=== PATIENT | female | born 1945 | race Caucasian/White ===

== ENCOUNTER → 2018-04-22 | Outpatient (CLI) | payer MEDICARE, OTHER ==
--- NOTE | 2018-05-05 18:33 | HM ---
HOLTER MONITOR REPORT HOLTER MONITOR: Referred by Dr. Leland Lam for a Holter monitor. Holter monitor shows sinus mechanism, heart rate ranging from 50 to 104 beats per minute. Average beats per minute. Occasional PVCs and ventricular couplets. No sustained or nonsustained arrhythmias. No bradyarrhythmias. MMODL / IJN: [id number] /
== END | disposition home or self-care (01) ==
LOC: RADECHMAIN 11:42
PROVIDERS: ATTEND Internal Medicine
DX: I49.3 Ventricular premature depolarization (principal); I48.0 Paroxysmal atrial fibrillation
CPT/HCPCS: 93225; 93226

== ENCOUNTER → 2018-04-29 | Outpatient (CLI) | payer MEDICARE, OTHER ==
--- NOTE | 2018-04-29 10:12 | ECHOF ---
Referral Reason:I48.0 MEASUREMENTS -------- HEIGHT: 170.2 cm WEIGHT: 124.7 kg BP: RVIDd: 3.2 cm (< 3.3) IVSd: 1.3 cm (0.6 - 1.1) LVIDd: 4.1 cm (3.9 - 5.3) LVPWd: 1.1 cm (0.6 - 1.1) IVSs: 1.9 cm LVIDs: 1.5 cm LVPWs: 1.9 cm Ao Diam: 3.0 cm (2.0 - 3.7) AV Cusp: 2.0 cm (1.5 - 2.6) LA Diam: 4.3 cm (2.7 - 3.8) EPSS: 0.3 cm MV E Fabiano: 0.95 m/s MV DecT: 221 ms MV A Fabiano: 1.16 m/s MV E/A Ratio: 0.81 AR PHT: 454 ms MV EF SLOPE: 50.50 mm/s (70 - 150) MV EXCURSION: 1.41 cm (> 18.000) FINDINGS -------- Sinus rhythm. This was a technically good study. The left ventricular size is normal. There is mild concentric left ventricular hypertrophy. Overa ll left ventricular systolic function is normal with, an EF between 55 - 60 %. Cannot exclude inferob [place] focal hypokinesia. The right ventricle is normal in size. The left atrium is mildly dilated. The right atrium is normal in size. Possible PFO Aortic valve is trileaflet and is mildly thickened. There is mild aortic regurgitation. The mitral valve leaflets are mildly thickened. There is trace mitral regurgitation. Trace tricuspid regurgitation present. The right ventricular systolic pressure, as measured by Dopp ler, is {RVSP}. Pulmonic valve appears structurally normal. The aortic root size is normal. Normal inferior vena cava with normal inspiratory collapse consistent with estimated right atrial pre ssure of 5 mmHg. CONCLUSIONS -------- 1. Sinus rhythm. 2. This was a technically good study. 3. The left ventricular size is normal. 4. There is mild concentric left ventricular hypertrophy. 5. Overall left ventricular systolic function is normal with, an EF between 55 - 60 %. 6. The right ventricle is normal in size. 7. The left atrium is mildly dilated. 8. The right atrium is normal in size. 9. Possible PFO 10. Aortic valve is trileaflet and is mildly thickened. 11. There is mild aortic regurgitation. 12. The mitral valve leaflets are mildly thickened. 13. There is trace mitral regurgitation. 14. Trace tricuspid regurgitation present. 15. The right ventricular systolic pressure, as measured by Doppler, is {RVSP}. 16. Pulmonic valve appears structurally normal. 17. The aortic root size is normal. 18. Normal inferior vena cava with normal inspiratory collapse consistent with estimated right atrial pressure of 5 mmHg. [employer]: Erica Thapa RDCS
== END | disposition home or self-care (01) ==
LOC: RADECHMAIN 08:18
PROVIDERS: ATTEND Internal Medicine
DX: I35.1 Nonrheumatic aortic (valve) insufficiency (principal); I05.9 Rheumatic mitral valve disease, unspecified; I48.0 Paroxysmal atrial fibrillation
CPT/HCPCS: 93306

== ENCOUNTER 2019-08-14 11:58 | Inpatient (IN) | payer MEDICARE ==
--- NOTE | 2019-08-14 12:32 | ED ---
General Adult HPI - General Chief complaint: Arrhythmia/Palpitations Stated complaint: AFib Time Seen by Provider: 08/14/19 12:11 Source: patient, RN notes reviewed Mode of arrival: wheelchair Limitations: physical limitation - History of Present Illness Initial comments: Patient is a pleasant 74 rolled female presenting to the emergency department after being seen by her primary care physician. Patient states she was there for routine checkup. Patient has no complaints. Patient states she was identified to be in atrial fibrillation and was advised to come to emergency department. Patient denies any palpitations. No chest pain. No dyspnea. No history of atrial fibrillation. - Related Data Allergies Allergy/AdvReac Type Severity Reaction Status Date / Time No Known Allergies Allergy Verified 08/14/19 13:23 Review of Systems ROS Statement: Those systems with pertinent positive or pertinent negative responses have been documented in the HPI. ROS Other: All systems not noted in ROS Statement are negative. Constitutional: Denies: fever Eyes: Denies: eye pain ENT: Denies: ear pain Respiratory: Denies: dyspnea Cardiovascular: Denies: chest pain Endocrine: Denies: fatigue Gastrointestinal: Denies: abdominal pain Genitourinary: Denies: dysuria Musculoskeletal: Denies: back pain Skin: Denies: rash Neurological: Denies: weakness Past Medical History Past Medical History: Hyperlipidemia History of Any Multi-Drug Resistant Organisms: None Reported Past Surgical History: Orthopedic Surgery, Tubal Ligation Past Psychological History: No Psychological Hx Reported Smoking Status: Never smoker Past Alcohol Use History: None Reported Past Drug Use History: None Reported General Exam Limitations: physical limitation General appearance: alert, in no apparent distress Head exam: Present: normocephalic Eye exam: Present: normal appearance Neck exam: Present: normal inspection Respiratory exam: Present: normal lung sounds bilaterally Cardiovascular Exam: Present: tachycardia, irregular rhythm Expanded Peripheral pulses: 2+: Radial (R), Radial (L), Dorsalis Pedis (R), Dorsalis Pedis (L) GI/Abdominal exam: Present: soft. Absent: tenderness Extremities exam: Present: normal inspection. Absent: pedal edema, calf tenderness Neurological exam: Present: alert Psychiatric exam: Present: normal affect, normal mood Skin exam: Present: normal color Course Vital Signs 08/14/19 08/14/19 08/14/19 12:02 12:23 13:07 Temperature 97.5 F L Pulse Rate 124 H 154 H 126 H Respiratory 17 18 18 Rate Blood Pressure 131/84 128/115 O2 Sat by Pulse 96 95 98 Oximetry 08/14/19 13:18 Temperature Pulse Rate 141 H Respiratory 18 Rate Blood Pressure 143/110 O2 Sat by Pulse 95 Oximetry - Reevaluation(s) Reevaluation #1: 08/14/19 13:13 Case was also discussed with Dr. Carrasco who will come evaluate patient. EKG Findings - EKG Comments: EKG Findings:: Atrial flutter appearance with a rate of 140. QRS 82. QT 288. QTC or 39. Left axis. Inferior Q waves. No acute ST change. Medical Decision Making - Medical Decision Making Case was also discussed with sound physician who will admit for hospital call. Patient reevaluated and updated. - Lab Data Result diagrams: 08/14/19 12:19 08/14/19 12:19 Lab Results 08/14/19 08/14/19 08/14/19 Range/Units 12:19 12:19 12:19 WBC 7.8 (3.8-10.6) k/uL RBC 4.59 (3.80-5.40) m/uL Hgb 14.4 (11.4-16.0) gm/dL Hct 41.7 (34.0-46.0) % MCV 90.9 (80.0-100.0) fL MCH 31.5 (25.0-35.0) pg MCHC 34.6 (31.0-37.0) g/dL RDW 14.7 (11.5-15.5) % Plt Count 272 (150-450) k/uL Neutrophils % 77 % Lymphocytes % 14 % Monocytes % 5 % Eosinophils % 2 % Basophils % 1 % Neutrophils # 6.0 (1.3-7.7) k/uL Lymphocytes # 1.1 (1.0-4.8) k/uL Monocytes # 0.4 (0-1.0) k/uL Eosinophils # 0.1 (0-0.7) k/uL Basophils # 0.1 (0-0.2) k/uL PT 9.8 (9.0-12.0) sec INR 0.9 (<1.2) APTT 24.7 (22.0-30.0) sec Sodium 138 (137-145) mmol/L Potassium 3.7 (3.5-5.1) mmol/L Chloride 100 (98-107) mmol/L Carbon Dioxide 26 (22-30) mmol/L Anion Gap 12 mmol/L BUN 15 (7-17) mg/dL Creatinine 0.78 (0.52-1.04) mg/dL Est GFR (CKD-EPI)AfAm 86 (>60 ml/min/1.73 sqM) Est GFR (CKD-EPI)NonAf 74 (>60 ml/min/1.73 sqM) Glucose 110 H (74-99) mg/dL Calcium 9.9 (8.4-10.2) mg/dL Magnesium 1.6 (1.6-2.3) mg/dL Total Bilirubin 0.7 (0.2-1.3) mg/dL AST 35 (14-36) U/L ALT 31 (9-52) U/L Alkaline Phosphatase 42 (38-126) U/L Troponin I (0.000-0.034) ng/mL Total Protein 7.9 (6.3-8.2) g/dL Albumin 4.1 (3.5-5.0) g/dL 08/14/19 Range/Units 12:19 WBC (3.8-10.6) k/uL RBC (3.80-5.40) m/uL Hgb (11.4-16.0) gm/dL Hct (34.0-46.0) % MCV (80.0-100.0) fL MCH (25.0-35.0) pg MCHC (31.0-37.0) g/dL RDW (11.5-15.5) % Plt Count (150-450) k/uL Neutrophils % % Lymphocytes % % Monocytes % % Eosinophils % % Basophils % % Neutrophils # (1.3-7.7) k/uL Lymphocytes # (1.0-4.8) k/uL Monocytes # (0-1.0) k/uL Eosinophils # (0-0.7) k/uL Basophils # (0-0.2) k/uL PT (9.0-12.0) sec INR (<1.2) APTT (22.0-30.0) sec Sodium (137-145) mmol/L Potassium (3.5-5.1) mmol/L Chloride (98-107) mmol/L Carbon Dioxide (22-30) mmol/L Anion Gap mmol/L BUN (7-17) mg/dL Creatinine (0.52-1.04) mg/dL Est GFR (CKD-EPI)AfAm (>60 ml/min/1.73 sqM) Est GFR (CKD-EPI)NonAf (>60 ml/min/1.73 sqM) Glucose (74-99) mg/dL Calcium (8.4-10.2) mg/dL Magnesium (1.6-2.3) mg/dL Total Bilirubin (0.2-1.3) mg/dL AST (14-36) U/L ALT (9-52) U/L Alkaline Phosphatase (38-126) U/L Troponin I <0.012 (0.000-0.034) ng/mL Total Protein (6.3-8.2) g/dL Albumin (3.5-5.0) g/dL - Radiology Data Radiology results: image reviewed Critical Care Time Critical Care Time: Yes Total Critical Care Time: 32 Disposition Clinical Impression: Atrial flutter with rapid ventricular response Disposition: ADMITTED IP TO THIS HOSP Is patient prescribed a controlled substance at d/c from ED?: No Decision Time: 13:13
[2019-08-14 12:58] LABS: Albumin 4.1 g/dL (3.5-5.0); Calcium 9.9 mg/dL (8.4-10.2); Magnesium 1.6 mg/dL (1.6-2.3); Potassium 3.7 mmol/L (3.5-5.1); Total Bilirubin 0.7 mg/dL (0.2-1.3); Total Protein 7.9 g/dL (6.3-8.2)
[2019-08-14 13:02] LABS: INR 0.9 (<1.2); Partial Thromboplastin Time 24.7 sec (22.0-30.0); Prothrombin Time 9.8 sec (9.0-12.0)
[2019-08-14 13:13] LABS: T4, Free (Free Thyroxine) 1.94 ng/dL (0.78-2.19)
[2019-08-14] MEDS ORDERED: ASPIRIN 81 MG PO STA (13:14)
[2019-08-14] MEDS ORDERED: HEPARIN SODIUM,PORCINE 5,000 UNIT/ML 1 ML VIAL IV PRN (13:14)
[2019-08-14] MEDS ORDERED: HEPARIN SODIUM,PORCINE 5,000 UNIT/ML 1 ML VIAL IV ONE (13:14)
[2019-08-14 13:15] LABS: Basophils # (A) 0.1 k/uL (0-0.2); Basophils % (A) 1 %; Eosinophils # (A) 0.1 k/uL (0-0.7); Eosinophils % (A) 2 %; HCT 41.7 % (34.0-46.0); HGB 14.4 gm/dL (11.4-16.0); Lymphocytes # (A) 1.1 k/uL (1.0-4.8); Lymphocytes % (A) 14 %; MCH 31.5 pg (25.0-35.0); MCHC 34.6 g/dL (31.0-37.0); MCV 90.9 fL (80.0-100.0); Mean Platelet Volume 6.4; Monocytes # (A) 0.4 k/uL (0-1.0); Monocytes % (A) 5 %; Neutrophils % (A) 77 %; Platelet Count 272 k/uL (150-450); RBC 4.59 m/uL (3.80-5.40); RDW 14.7 % (11.5-15.5); WBC 7.8 k/uL (3.8-10.6)
[2019-08-14] MEDS ORDERED: HEPARIN SOD,PORK IN 0.45% NACL 25,000 UNIT in 0.45% NACL 1 250ML.BAG IV SCH (13:15)
--- NOTE | 2019-08-14 13:15 | XR ---
EXAMINATION TYPE: XR chest 2V DATE OF EXAM: 08/14/2019 COMPARISON: None INDICATION: Dysrhythmia TECHNIQUE: Frontal and lateral views of the chest are obtained. FINDINGS: The heart size is normal. The pulmonary vasculature is normal. The lungs are clear. Left shoulder prosthesis is evident. This is a humeral head level. Spondylosis within the thoracic spine. IMPRESSION: 1. No acute pulmonary process.
[2019-08-14] MEDS: DILTIAZEM 125 MG in SODIUM CHLORIDE 0.9% 100 ML IV SCH (13:16)
--- NOTE | 2019-08-14 13:20 | P.PN ---
Progress Note - Text Called by Dr. Griffiths regarding patient with A. fib with RVR symptomatic Discussed with Dr. Arredondo Please see full consult to follow TSH Rate control Anticoagulation
[2019-08-14] MEDS ORDERED: VERAPAMIL SR 120 MG TABLET.ER PO SCH (14:05)
--- NOTE | 2019-08-14 14:24 | P.CRDCN ---
<Cary Kelly - Last Filed: 08/14/19 14:23> History of Present Illness History of present illness: This is Cary Kelly PA-C dictating a consult on this patient The patient was interviewed and examined by me as well as by Dr. Carrasco Case discussed with Dr. Carrasco and he agrees with the plan of care IMPRESSION / ASSESSMENT: New-onset atrial fibrillation with RVR, currently on IV Cardizem Hypertension Dyslipidemia Hypothyroidism, recent labs show suppressed TSH PLAN: Start anticoagulation with eliquis 5 mg twice daily, based on patient's age, weight and creatinine Start verapamil 120 mg twice daily for rate control Obtain echocardiogram Obtain TSH Further recommendations to follow based on echocardiogram results Management of abnormal TSH by primary care team HPI Patient is a 74-year-old female with a past medical history significant for hypertension, hypothyroidism, and dyslipidemia who is sent to the emergency department by her primary care doctor, Dr. Bryant. Patient states she was in the office seeing Dr. Bryant following up on labs when she was noted to have an elevated heart rate. The patient was completely asymptomatic at that time. Denies any palpitations, chest pain, chest pressure, neck pain, back pain, shortness of breath, or dizziness. Dr. Bryant obtained an EKG which showed atrial fibrillation with RVR, rate 118 bpm. He shouldn't states she has no history of atrial fibrillation but last January when she went to get cataract surgery she was told "her heart was racing" and physician would not do her surgery. She states she was asymptomatic at that time as well. She didn't follow-up with her PCP who did an EKG which was normal at that time per the patient. Over the last few weeks, patient denies any symptoms of palpitations, chest pain, shortness of breath on exertion, dizziness or syncope. Endorses a good energy level and states that her exercise tolerance is only limited due to her arthritis. Dr. Bryant referred the patient to the emergency department for further evaluation. Upon presentation here, EKG showed rapid atrial tachycardia/atrial fibrillation with RVR, rate 140 bpm. Patient's blood pressure was stable. She was started on IV Cardizem. Patient seen and examined resting in bed in the emergency department. States she feels a little "shaky" because she is nervous about being in the emergency department. Denies any chest pain, palpitations, shortness of breath or dizziness. No history of anemia or bleeding problems. ROS: No fevers, chills or rigors, no cough, phlegm or expectoration, no nausea, vomiting or diarrhea, no hematuria, dysuria, Positive for shoulder pain, hip pain and knee pain no strokes or seizures, no skin lesions. EXAMINATION: Afebrile, pulse 124, respirations 17, blood pressure 131/84, oxygen saturation 96% on room air Patient seen and examined lying in bed, in no acute distress Lungs are clear to auscultation bilaterally Heart is irregularly irregular, tachycardic No elevated JVD No lower extremity edema Abdomen soft and nontender REVIEW OF LABS, ECG & MEDICAL DATA Recent labs from Dr. Bryant's office reviewed, TSH was 0.47, creatinine was 0.8 Hemoglobin is normal Past Medical History Past Medical History: Hyperlipidemia History of Any Multi-Drug Resistant Organisms: None Reported Past Surgical History: Orthopedic Surgery, Tubal Ligation Past Psychological History: No Psychological Hx Reported Smoking Status: Never smoker Past Alcohol Use History: None Reported Past Drug Use History: None Reported Medications and Allergies Home Medications Medication Instructions Recorded Confirmed Type Acetaminophen/Diphenhydramine 1 tab PO HS PRN 08/14/19 08/14/19 History [Tylenol PM 500-25mg] Aspirin EC [Ecotrin Low Dose] 81 mg PO DAILY 08/14/19 08/14/19 History Beta-Carotene [Beta Carotene] 25,000 unit PO DAILY 08/14/19 08/14/19 History Cranberry Fruit Extract [Cranberry] 500 mg PO DAILY 08/14/19 08/14/19 History Desoximetasone [Desoximetasone 1 applic TOPICAL BID 08/14/19 08/14/19 History 0.05%] Glucosamine-Chondr 500-400Mg 2 tab PO DAILY 08/14/19 08/14/19 History Hydrochlorothiazide 50 mg PO QAM 08/14/19 08/14/19 History Hydrocortisone Cream 1 applic TOPICAL BID 08/14/19 08/14/19 History [Hydrocortisone 2.5% Cream] Ibuprofen/Diphenhydramine HCl 1 cap PO HS PRN 08/14/19 08/14/19 History [Advil Pm Liqui-Gels] Levothyroxine Sodium [Synthroid] 137 mcg PO QAM 08/14/19 08/14/19 History Naproxen Sodium [Aleve] 220 - 440 mg PO DAILY PRN 08/14/19 08/14/19 History Oxybutynin Chloride [Ditropan] 5 mg PO QAM 08/14/19 08/14/19 History Psyllium Husk (with Sugar) 1 - 2 tsp PO DAILY 08/14/19 08/14/19 History [Metamucil Powder] Simvastatin 80 mg PO HS 08/14/19 08/14/19 History Ultra Vitamin Vm 33 1 tab PO DAILY 08/14/19 08/14/19 History Allergies Allergy/AdvReac Type Severity Reaction Status Date / Time No Known Allergies Allergy Verified 08/14/19 13:23 Physical Exam Vitals: Vital Signs Temp Pulse Resp BP Pulse Ox 08/14/19 13:18 141 H 18 143/110 95 08/14/19 13:07 126 H 18 128/115 98 08/14/19 12:23 154 H 18 95 08/14/19 12:02 97.5 F L 124 H 17 131/84 96 Intake and Output 08/13/19 08/14/19 08/14/19 22:59 06:59 14:59 Other: Weight 113.398 kg Results 08/14/19 12:19 08/14/19 12:19 Cardiac Enzymes 08/14/19 08/14/19 Range/Units 12:19 12:19 AST 35 (14-36) U/L Troponin I <0.012 (0.000-0.034) ng/mL Coagulation 08/14/19 Range/Units 12:19 PT 9.8 (9.0-12.0) sec APTT 24.7 (22.0-30.0) sec CBC 08/14/19 Range/Units 12:19 WBC 7.8 (3.8-10.6) k/uL RBC 4.59 (3.80-5.40) m/uL Hgb 14.4 (11.4-16.0) gm/dL Hct 41.7 (34.0-46.0) % Plt Count 272 (150-450) k/uL Comprehensive Metabolic Panel 08/14/19 Range/Units 12:19 Sodium 138 (137-145) mmol/L Potassium 3.7 (3.5-5.1) mmol/L Chloride 100 (98-107) mmol/L Carbon Dioxide 26 (22-30) mmol/L BUN 15 (7-17) mg/dL Creatinine 0.78 (0.52-1.04) mg/dL Glucose 110 H (74-99) mg/dL Calcium 9.9 (8.4-10.2) mg/dL AST 35 (14-36) U/L ALT 31 (9-52) U/L Alkaline Phosphatase 42 (38-126) U/L Total Protein 7.9 (6.3-8.2) g/dL Albumin 4.1 (3.5-5.0) g/dL Current Medications Generic Name Dose Route Start Last Admin Trade Name Freq PRN Reason Stop Dose Admin Apixaban 5 mg 08/14/19 14:00 Eliquis PO BID NATE Aspirin 81 mg 08/15/19 09:00 Aspirin PO DAILY NATE Diltiazem HCl 125 mg/ Sodium 125 mls @ 5 mls/hr 08/14/19 12:30 08/14/19 13:16 Chloride IV 5 mg/hr .Q24H NATE 5 mls/hr Administration 5 MG/HR Verapamil HCl 120 mg 08/14/19 14:05 Isoptin Sr PO BID NATE Intake and Output 08/13/19 08/14/19 08/14/19 22:59 06:59 14:59 Other: Weight 113.398 kg Patient Weight 08/15/19 06:59 Weight 113.398 kg 08/14/19 12:19 08/14/19 12:19 <Dima Carrasco - Last Filed: 08/14/19 19:14> History of Present Illness History of present illness: Patient interviewed and examined She is experiencing paroxysms of atrial fibrillation interspersed with sinus rhythm PAF About a year back her cataract surgery was postponed on account of a rapid heartbeat Following that a 12-lead ECG was performed the next day she was in sinus rhythm Hypertension Dyslipidemia 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 Suggest Review of 2-D echo Rate control medications Anticoagulation Reduction in the dose of levothyroxine line possible discharge tomorrow Physical Exam Vitals: Vital Signs Temp Pulse Resp BP Pulse Ox 08/14/19 17:58 98 18 152/82 96 08/14/19 15:27 106 H 18 104/92 95 08/14/19 13:18 141 H 18 143/110 95 08/14/19 13:07 126 H 18 128/115 98 08/14/19 12:23 154 H 18 95 08/14/19 12:02 97.5 F L 124 H 17 131/84 96 Intake and Output 08/14/19 08/14/19 08/14/19 06:59 14:59 22:59 Other: Weight 113.398 kg Results 08/14/19 12:19 08/14/19 12:19 Cardiac Enzymes 08/14/19 08/14/19 Range/Units 12:19 12:19 AST 35 (14-36) U/L Troponin I <0.012 (0.000-0.034) ng/mL Coagulation 08/14/19 Range/Units 12:19 PT 9.8 (9.0-12.0) sec APTT 24.7 (22.0-30.0) sec CBC 08/14/19 Range/Units 12:19 WBC 7.8 (3.8-10.6) k/uL RBC 4.59 (3.80-5.40) m/uL Hgb 14.4 (11.4-16.0) gm/dL Hct 41.7 (34.0-46.0) % Plt Count 272 (150-450) k/uL Comprehensive Metabolic Panel 08/14/19 Range/Units 12:19 Sodium 138 (137-145) mmol/L Potassium 3.7 (3.5-5.1) mmol/L Chloride 100 (98-107) mmol/L Carbon Dioxide 26 (22-30) mmol/L BUN 15 (7-17) mg/dL Creatinine 0.78 (0.52-1.04) mg/dL Glucose 110 H (74-99) mg/dL Calcium 9.9 (8.4-10.2) mg/dL AST 35 (14-36) U/L ALT 31 (9-52) U/L Alkaline Phosphatase 42 (38-126) U/L Total Protein 7.9 (6.3-8.2) g/dL Albumin 4.1 (3.5-5.0) g/dL Current Medications Generic Name Dose Route Start Last Admin Trade Name Freq PRN Reason Stop Dose Admin Acetaminophen 650 mg 08/14/19 18:24 Tylenol Tab PO Q6HR PRN Mild Pain or Fever > 100.5 Hydrocodone Bitart/Acetaminophen 1 each 08/14/19 18:24 [place] 5-325 PO Q4HR PRN Moderate Pain Apixaban 5 mg 08/14/19 14:00 08/14/19 15:26 Eliquis PO 5 mg BID NATE Administration Aspirin 81 mg 08/15/19 09:00 Aspirin PO DAILY [facility] Atorvastatin Calcium 40 mg 08/14/19 21:00 Lipitor PO HS [facility] Hydrochlorothiazide 50 mg 08/15/19 09:00 Hydrodiuril PO QAM [facility] Diltiazem HCl 125 mg/ Sodium 125 mls @ 5 mls/hr 08/14/19 12:30 08/14/19 13:16 Chloride IV 5 mg/hr .Q24H NATE 5 mls/hr Administration 5 MG/HR Levothyroxine Sodium 100 mcg 08/15/19 06:30 Synthroid PO DAILY@0630 [facility] Morphine Sulfate 2 mg 08/14/19 18:24 Morphine Sulfate (Inj) IV Q4HR PRN Severe Pain Naloxone HCl 0.2 mg 08/14/19 18:24 Narcan IV Q2M PRN Opioid Reversal Oxybutynin Chloride 5 mg 08/15/19 09:00 Ditropan PO QAM [facility] Verapamil HCl 120 mg 08/15/19 09:00 Isoptin Sr PO DAILY [facility] Intake and Output 08/14/19 08/14/19 08/14/19 06:59 14:59 22:59 Other: Weight 113.398 kg Patient Weight 08/15/19 06:59 Weight 113.398 kg 08/14/19 12:19 08/14/19 12:19
[2019-08-14] MEDS: APIXABAN 5 MG TAB PO SCH ×2 (15:26→20:39)
[2019-08-14] MEDS ORDERED: MORPHINE SULFATE 2 MG/ML SYRINGE IVP STA (17:53)
[2019-08-14] MEDS ORDERED: MORPHINE SULFATE 2 MG/ML SYRINGE IV PRN (18:24)
[2019-08-14] MEDS ORDERED: ACETAMINOPHEN TAB 325 MG TAB PO PRN (18:24)
[2019-08-14] MEDS ORDERED: NALOXONE 0.4 MG/ML 1 ML VIAL IV PRN (18:24)
--- NOTE | 2019-08-14 18:27 | P.HPIM ---
History of Present Illness H&P Date: 08/14/19 Chief Complaint: A. fib with RVR 74 show female with PMH of osteoarthritis, dyslipidemia presents the ED after being sent from her PCP clinic. Patient states that she was at Dr. Bryant's clinic for routine follow-up when she was noted to have an elevated pulse. EKG was done at that time which showed atrial fibrillation with RVR with a rate of 118. Patient reported no complaints at that time. She denies any chest pain, shortness of breath, dizziness or palpitations. Patient denies any headache, lower extremity edema, nausea or vomiting, fever or chills, cough, changes in urination or bowel habits. No changes in appetite or weight. She denies any numbness/weakness/tingling of the extremities. Patient does report arthritic pain in her bilateral hip and bilateral knees. Pain is 10 out of 10 in severity currently due to the uncomfortable bed in the ED. Patient denies any recent stressors. She does not drink alcohol. She does not smoke cigarettes. She tong s report drinking what seems like one energy drink daily. In the ED, her vital signs were relatively stable except for heart rate as high as 154 and diastolic blood pressures is 115. CBC was unremarkable. Coagulation panel was negative. CMP showed glucose of 110. Troponin was less than 0.012, EKG showing atrial flutter with variable AV block and PVCs, rate of 140. TSH was 0.349 with free T4 within normal limits. Chest x-ray was negative. Patient is admitted for atrial fibrillation with RVR with cardiology consultation. Review of Systems Pertinent positives and negatives as discussed in HPI, a complete review of systems was performed and all other systems are negative. Past Medical History Past Medical History: Hyperlipidemia History of Any Multi-Drug Resistant Organisms: None Reported Past Surgical History: Orthopedic Surgery, Tubal Ligation Past Psychological History: No Psychological Hx Reported Smoking Status: Never smoker Past Alcohol Use History: None Reported Past Drug Use History: None Reported Medications and Allergies Home Medications Medication Instructions Recorded Confirmed Type Acetaminophen/Diphenhydramine 1 tab PO HS PRN 08/14/19 08/14/19 History [Tylenol PM 500-25mg] Aspirin EC [Ecotrin Low Dose] 81 mg PO DAILY 08/14/19 08/14/19 History Beta-Carotene [Beta Carotene] 25,000 unit PO DAILY 08/14/19 08/14/19 History Cranberry Fruit Extract [Cranberry] 500 mg PO DAILY 08/14/19 08/14/19 History Desoximetasone [Desoximetasone 1 applic TOPICAL BID 08/14/19 08/14/19 History 0.05%] Glucosamine-Chondr 500-400Mg 2 tab PO DAILY 08/14/19 08/14/19 History Hydrochlorothiazide 50 mg PO QAM 08/14/19 08/14/19 History Hydrocortisone Cream 1 applic TOPICAL BID 08/14/19 08/14/19 History [Hydrocortisone 2.5% Cream] Ibuprofen/Diphenhydramine HCl 1 cap PO HS PRN 08/14/19 08/14/19 History [Advil Pm Liqui-Gels] Levothyroxine Sodium [Synthroid] 137 mcg PO QAM 08/14/19 08/14/19 History Naproxen Sodium [Aleve] 220 - 440 mg PO DAILY PRN 08/14/19 08/14/19 History Oxybutynin Chloride [Ditropan] 5 mg PO QAM 08/14/19 08/14/19 History Psyllium Husk (with Sugar) 1 - 2 tsp PO DAILY 08/14/19 08/14/19 History [Metamucil Powder] Simvastatin 80 mg PO HS 08/14/19 08/14/19 History Ultra Vitamin Vm 33 1 tab PO DAILY 08/14/19 08/14/19 History Allergies Allergy/AdvReac Type Severity Reaction Status Date / Time No Known Allergies Allergy Verified 08/14/19 13:23 Physical Exam Vitals: Vital Signs Temp Pulse Resp BP Pulse Ox 08/14/19 15:27 106 H 18 104/92 95 08/14/19 13:18 141 H 18 143/110 95 08/14/19 13:07 126 H 18 128/115 98 08/14/19 12:23 154 H 18 95 08/14/19 12:02 97.5 F L 124 H 17 131/84 96 Intake and Output 08/14/19 08/14/19 08/14/19 06:59 14:59 22:59 Other: Weight 113.398 kg General: [non toxic], [no distress], [appears at stated age] Derm: [warm], [dry] Head: [atraumatic], [normocephalic], [symmetric] Eyes: [EOMI], [no lid lag], [anicteric sclera] Mouth: [no lip lesion], [mucus membranes moist] Cardiovascular: [S1S2 reg], [irregularly irregular], [positive DP pulse bilateral], Lungs: [CTA bilateral], [no rhonchi, no rales] , [no accessory muscle use] Abdominal: [soft], [ nontender to palpation], [no guarding], [no appreciable organomegaly] Ext: [no gross muscle atrophy], [no edema], [no contractures] Neuro: [ CN II-XI grossly intact], [no focal neuro deficits] Psych: [Alert], [oriented], [appropriate affect] Results CBC & Chem 7: 08/14/19 12:19 08/14/19 12:19 Labs: Abnormal Lab Results - Last 24 Hours (Table) 08/14/19 Range/Units 12:19 Glucose 110 H (74-99) mg/dL TSH 0.349 L (0.465-4.680) mIU/L Assessment and Plan Assessment: Assessment and plan Atrial fibrillation with rapid ventricular rate Hypertension Dyslipidemia Subclinical hyperthyroidism Osteoarthritis As seen on EKG. TSH 0.349 with free T4 within normal limits. Troponin was less than 0.012 with EKG showing atrial flutter with variable AV block. Plans: Anticoagulation started with Eliquis and verapamil 120 mg by mouth twice a day for rate control as per cardiology recommendations. Trend troponin/EKG to rule out ACS. Follow echocardiogram. Potassium greater than 4 and magnesium greater than 2. Telemetry monitoring. Follow cardiology recommendations. BP 104/92. Plans: We started hydrochlorothiazide. Monitor vitals, adjust medications as necessary. Plans: Restart simvastatin. TSH 0.349, free T4 within normal limits. Plans: We will decrease the dose of synthroid from 137 to 100 mcg. She will need follow up with PCP for repeat thyroid testing in 4-6 weeks. Plans: Pain management with Tylenol, [place] as needed. DVT prophylaxis: [Eliquis] Discussed with: [Patient] Anticipated discharge: [1-2 days] Anticipated discharge place: [Home] A total of [45] minutes was spent on the care of this complex patient more than 50% of the time was spent in counseling and care coordination. Patient names her Con decision-maker in the case that she can't make decisions for herself. Patient would like to be no code.
--- NOTE | 2019-08-14 18:42 | ECHOF ---
Referral Reason:A flutter with RVR MEASUREMENTS -------- HEIGHT: 170.2 cm WEIGHT: 113.4 kg BP: 143/110 RVIDd: 3.3 cm (< 3.3) IVSd: 1.1 cm (0.6 - 1.1) LVIDd: 4.0 cm (3.9 - 5.3) LVPWd: 1.1 cm (0.6 - 1.1) IVSs: 1.5 cm LVIDs: 2.3 cm LVPWs: 1.3 cm LA Diam: 3.1 cm (2.7 - 3.8) LAESV Index (A-L): 16.28 ml/m Ao Diam: 3.4 cm (2.0 - 3.7) AV Cusp: 2.0 cm (1.5 - 2.6) MV EXCURSION: 14.230 mm (> 18.000) MV EF SLOPE: 192 mm/s (70 - 150) EPSS: 0.7 cm RAP: 5.00 mmHg RVSP: 24.76 mmHg FINDINGS -------- Atrial fibrillation. This was a technically difficult study with suboptimal views. The left ventricular size is normal. There is borderline concentric left ventricular hypertrophy. Left ventricular systolic function is hyperdynamic with an estimated EF of >70%. The right ventricle is mildly enlarged. The left atrial size is normal. The right atrium is normal in size. Interatrial and interventricular septum intact. There is mild aortic valve sclerosis. There is mild aortic regurgitation. Mild mitral annular calcification present. There is trace to mild mitral regurgitation. Mild tricuspid regurgitation present. Right ventricular systolic pressure is normal at < 35 mmHg. The pulmonic valve was not well visualized. The aortic root size is normal. IVC Not well visulized. There is no pericardial effusion. CONCLUSIONS -------- 1. Atrial fibrillation. 2. This was a technically difficult study with suboptimal views. 3. The left ventricular size is normal. 4. There is borderline concentric left ventricular hypertrophy. 5. Left ventricular systolic function is hyperdynamic with an estimated EF of >70%. 6. The right ventricle is mildly enlarged. 7. The left atrial size is normal. 8. The right atrium is normal in size. 9. Interatrial and interventricular septum intact. 10. There is mild aortic valve sclerosis. 11. There is mild aortic regurgitation. 12. Mild mitral annular calcification present. 13. There is trace to mild mitral regurgitation. 14. Mild tricuspid regurgitation present. 15. Right ventricular systolic pressure is normal at < 35 mmHg. 16. The pulmonic valve was not well visualized. 17. The aortic root size is normal. 18. IVC Not well visulized. 19. There is no pericardial effusion. MACHINE TACK PULLER: Lou Orlando RDCS
[2019-08-14] MEDS: ATORVASTATIN 40 MG TAB PO SCH (20:39)
[2019-08-14] MEDS: HYDROcodone/APAP 5-325MG 1 EACH TAB PO PRN (22:56)
[2019-08-15] MEDS ORDERED: LEVOTHYROXINE 100 MCG TAB PO SCH (06:30)
[2019-08-15] MEDS: HYDROcodone/APAP 5-325MG 1 EACH TAB PO PRN ×4 (06:49→21:35)
[2019-08-15 07:24] LABS: Mean Platelet Volume 6.6; Platelet Count 242 k/uL (150-450)
[2019-08-15 07:50] LABS: Cholesterol 138 mg/dL (<200); HDL Cholesterol 46 mg/dL (40-60); LDL Cholesterol,Calculated 72 mg/dL (0-99); Triglycerides 100 mg/dL (<150)
[2019-08-15] MEDS ORDERED: ASPIRIN 325 MG TAB PO SCH (09:00)
[2019-08-15] MEDS ORDERED: LEVOTHYROXINE 137 MCG TAB PO SCH (09:00)
[2019-08-15] MEDS: OXYBUTYNIN CHLORIDE 5 MG TAB PO SCH (09:17)
[2019-08-15] MEDS: ASPIRIN 81 MG PO SCH (09:17)
[2019-08-15] MEDS: APIXABAN 5 MG TAB PO SCH ×2 (09:17→21:51)
[2019-08-15] MEDS: HYDROCHLOROTHIAZIDE 50 MG TAB PO SCH (09:18)
[2019-08-15] MEDS: VERAPAMIL SR 120 MG TABLET.ER PO SCH ×2 (09:52→11:54)
[2019-08-15] MEDS: DILTIAZEM 125 MG in SODIUM CHLORIDE 0.9% 100 ML IV SCH (09:53)
--- NOTE | 2019-08-15 12:11 | P.PN ---
Subjective Progress Note Date: 08/15/19 Patient reports that she is feeling better without any complains. She stated that she never felt any symptoms but she went to see her PCP on a routine visit and there it was noted that her heart rate was running high EKG was done which showed atrial fibrillation with rapid heart rate and she was sent to the emergency room for further evaluation and workup. Noted that patient heart rate is fluctuating and day 8 of down to 4 teas earlier this morning and Cardizem drip was discontinued. Patient was the started on verapamil SR 120 mg daily but morning dose was held because of heart rates around 60s. Patient denies chest pain, palpitation, diaphoresis, dizziness, headache, nausea and denies rest of the review system. Objective - Vital Signs Vital signs: Vital Signs Temp 96.9 F L 08/15/19 11:43 Pulse 75 08/15/19 11:43 Resp 18 08/15/19 11:43 BP 161/81 08/15/19 11:43 Pulse Ox 95 08/15/19 11:43 Intake & Output 08/14/19 08/15/19 08/15/19 18:59 06:59 18:59 Intake Total 120 240 Balance 120 240 Weight 113.398 kg 114.2 kg Intake: Oral 120 240 Other: Voiding Method Toilet Toilet # Voids 1 - Constitutional General appearance: Present: cooperative, no acute distress - EENT Eyes: Present: EOMI, normal appearance ENT: Present: hearing grossly normal, NA/AT - Respiratory Respiratory: bilateral: CTA, diminished, negative: dullness, rales, rhonchi, wheezing - Cardiovascular Rhythm: irregularly irregular Heart sounds: abnormal: S1, S2 Abnormal Heart Sounds: Absent: systolic murmur, diastolic murmur, S3 Gallop, S4 Gallop - Gastrointestinal General gastrointestinal: Present: normal bowel sounds, soft. Absent: distended, rigid, tenderness - Psychiatric Psychiatric: Present: A&O x's 3, appropriate affect - Allied health notes Allied health notes reviewed: nursing - Labs CBC & Chem 7: 08/15/19 07:09 08/14/19 12:19 Labs: Abnormal Lab Results - Last 24 Hours (Table) 08/14/19 Range/Units 12:19 Glucose 110 H (74-99) mg/dL TSH 0.349 L (0.465-4.680) mIU/L Assessment and Plan Plan: Atrial fibrillation with rapid ventricular rate, as noted on EKG. Hypertension Dyslipidemia Subclinical hyperthyroidism Osteoarthritis TSH 0.349 with free T4 within normal limits. Troponin was less than 0.012 with EKG showing atrial flutter with variable AV block. Pt. will be continued on anticoagulation with Eliquis and verapamil 120 mg oraly daily for rate control as per cardiology recommendations. Pt. will be monitored for 24 hours for the rsponse on her heart rate. ACS was ruled out, will keep Potassium greater than 4 and magnesium greater than 2. Telemetry monitoring. Care coordinated with cardiology team. BP 104/92. Plans: We started hydrochlorothiazide. Monitor vitals, adjust medications as necessary. Plans: Restart simvastatin. TSH 0.349, free T4 within normal limits. Plans: We will decrease the dose of synthroid from 137 to 125 mcg. She will need follow up with PCP for repeat thyroid testing in 4-6 weeks. Plans: Pain management with Tylenol, [place] as needed. Time with Patient: Less than 30
[2019-08-15] MEDS: ATORVASTATIN 40 MG TAB PO SCH (21:51)
[2019-08-15] MEDS ORDERED: ALPRAZolam 0.5 MG TAB PO STA (23:19)
[2019-08-16] MEDS ORDERED: LEVOTHYROXINE 125 MCG TAB PO SCH (06:30)
[2019-08-16 07:12] LABS: Mean Platelet Volume 5.9; Platelet Count 215 k/uL (150-450)
[2019-08-16] MEDS: ASPIRIN 81 MG PO SCH (08:21)
[2019-08-16] MEDS: HYDROCHLOROTHIAZIDE 50 MG TAB PO SCH (08:21)
[2019-08-16] MEDS: HYDROcodone/APAP 5-325MG 1 EACH TAB PO PRN ×2 (08:21→15:02)
[2019-08-16] MEDS: APIXABAN 5 MG TAB PO SCH (08:21)
[2019-08-16] MEDS: OXYBUTYNIN CHLORIDE 5 MG TAB PO SCH (08:21)
[2019-08-16] MEDS: VERAPAMIL SR 120 MG TABLET.ER PO SCH (08:22)
[2019-08-16 09:20] VITALS: RESP 18; TEMP 96
[2019-08-16 11:56] VITALS: BP 117/69; PULSE 67
--- NOTE | 2019-08-16 12:54 | P.PN ---
Subjective Progress Note Date: 08/15/19 Patient evaluated on August 15 Doing well no chest discomfort dizziness lightheadedness Maintaining sinus rhythm mostly short paroxysms of A. fib Vitals are stable. Pressure is normal line normal heart sounds no murmurs or gallops Breath sounds are clear no rhonchi no crackles Abdomen soft nontender Extremity warm no edema Impression Symptomatic paroxysmal atrial fibrillation Suppressed TSH on 137 micrograms of levothyroxine Suggest Reduced dose of levothyroxine. Discussed with hospitalist Continue verapamil Continue apixaban for stroke prevention Objective - Vital Signs Vital signs: Vital Signs Temp 96.0 F L 08/16/19 08:00 Pulse 67 08/16/19 11:56 Resp 18 08/16/19 11:56 BP 117/69 08/16/19 11:56 Pulse Ox 97 08/16/19 11:56 Intake & Output 08/15/19 08/16/19 08/16/19 18:59 06:59 18:59 Intake Total 600 480 368 Output Total 600 Balance 0 480 368 Weight 115.5 kg Intake: Oral 600 480 368 Output: Urine 600 Other: Voiding Method Toilet Toilet Toilet # Voids 2 - Labs CBC & Chem 7: 08/16/19 05:41 08/14/19 12:19
--- NOTE | 2019-08-16 14:41 | P.DS ---
Providers Date of admission: 08/14/19 13:14 Expected date of discharge: 08/16/19 Attending physician: Jazmyne Leon MD Consults: 08/14/19 13:10 Consult Physician Urgent Consulting Provider: Dima Carrasco Consult Reason/Comments: a flutter Do you want consulting provider notified?: Already Contacted Primary care physician: Rosanne Bryant [facility] Hospital Course: S- 74 yo female with PMH of osteoarthritis, dyslipidemia presents the ED after being sent from her PCP clinic. Patient states that she was at Dr. Bryant's clinic for routine follow-up when she was noted to have an elevated pulse. EKG was done at that time which showed atrial fibrillation with RVR with a rate of 118. Patient reported no complaints at that time. Patient was admitted to the hospital IV Cardizem drip was initiated consultant in ergonomics and safety was obtained and overnight her heart rate dropped down to 40s and yesterday early in the morning Cardizem drip was discontinued. Patient was started on verapamil SR 120 mg daily and after that patient heart rate mostly stated between 60s to 80s per minute although she remains in atrial fibrillation. Patient never was symptomatic during this whole episode of atrial fibrillation with rapid ventricular rate and she was not symptomatic with controlled heart rate with pulse between 60s and 80s/min. Patient was also noted to be in mild iatrogenic hyper thyroidism and her Synthroid dose was slightly decreased. At the time of admission patient's CBC was unremarkable coagulation panel was negative comprehensive metabolic panel was acceptable troponins 3 were negative EKG reported as atrial fibrillation with rapid ventricular rate TSH was 0.349 and free T4 was upper normal limit. Her chest x-ray was negative for acute process. Patient stayed in the hospital for 2 days and remained stable. O- VSS,Afebrile. - Constitutional General appearance: Present: cooperative, no acute distress - EENT Eyes: Present: EOMI, normal appearance ENT: Present: hearing grossly normal, NA/AT - Respiratory Respiratory: bilateral: CTA, diminished, negative: dullness, rales, rhonchi, wheezing - Cardiovascular Rhythm: irregularly irregular Heart sounds: abnormal: S1, S2 Abnormal Heart Sounds: Absent: systolic murmur, diastolic murmur, S3 Gallop, S4 Gallop - Gastrointestinal General gastrointestinal: Present: normal bowel sounds, soft. Absent: distended, rigid, tenderness - Psychiatric Psychiatric: Present: A&O x's 3, appropriate affect ASSESSMENT:- Atrial fibrillation with rapid ventricular rate, as noted on EKG. Iatrogenic hyperthyroidism Hypertension Dyslipidemia Osteoarthritis PLAN:- D/C home with current management as recommended per cardiology team, scripts of Eliquis, Verapamil-ER and new dose of Synthroid were sent to [facility] pharmacy as per pt's request. Pt. will need f/u with PCP within 1 week and cardiology in 1-2 weeks. Assessment: As above. Health Concerns: Pt. is on new medications including blood thinners and was educated about the side effects and pros/cons of treatment. Procedures: None. Patient Condition at Discharge: Good Plan - Discharge Summary New Discharge Prescriptions: New Apixaban [Eliquis] 5 mg PO BID #60 tab Verapamil Sr [Isoptin Sr] 120 mg PO DAILY #30 tablet.er Levothyroxine Sodium [Synthroid] 125 mcg PO DAILY@0630 #30 tab Continue Naproxen Sodium [Aleve] 220 - 440 mg PO DAILY PRN PRN Reason: Pain Beta-Carotene [Beta Carotene] 25,000 unit PO DAILY Aspirin EC [Ecotrin Low Dose] 81 mg PO DAILY Acetaminophen/Diphenhydramine [Tylenol PM 500-25mg] 1 tab PO HS PRN PRN Reason: pain/sleep Cranberry Fruit Extract [Cranberry] 500 mg PO DAILY Ibuprofen/Diphenhydramine HCl [Advil Pm Liqui-Gels] 1 cap PO HS PRN PRN Reason: PAIN/SLEEP Glucosamine-Chondr 500-400Mg 2 tab PO DAILY Psyllium Husk (with Sugar) [Metamucil Powder] 1 - 2 tsp PO DAILY Simvastatin 80 mg PO HS Hydrocortisone Cream [Hydrocortisone 2.5% Cream] 1 applic TOPICAL BID Desoximetasone [Desoximetasone 0.05%] 1 applic TOPICAL BID Oxybutynin Chloride [Ditropan] 5 mg PO QAM Hydrochlorothiazide 50 mg PO QAM Ultra Vitamin Vm 33 1 tab PO DAILY Discontinued Levothyroxine Sodium [Synthroid] 137 mcg PO QAM Discharge Medication List Acetaminophen/Diphenhydramine [Tylenol PM 500-25mg] 1 tab PO HS PRN 08/14/19 [History] Aspirin EC [Ecotrin Low Dose] 81 mg PO DAILY 08/14/19 [History] Beta-Carotene [Beta Carotene] 25,000 unit PO DAILY 08/14/19 [History] Cranberry Fruit Extract [Cranberry] 500 mg PO DAILY 08/14/19 [History] Desoximetasone [Desoximetasone 0.05%] 1 applic TOPICAL BID 08/14/19 [History] Glucosamine-Chondr 500-400Mg 2 tab PO DAILY 08/14/19 [History] Hydrochlorothiazide 50 mg PO QAM 08/14/19 [History] Hydrocortisone Cream [Hydrocortisone 2.5% Cream] 1 applic TOPICAL BID 08/14/19 [History] Ibuprofen/Diphenhydramine HCl [Advil Pm Liqui-Gels] 1 cap PO HS PRN 08/14/19 [History] Naproxen Sodium [Aleve] 220 - 440 mg PO DAILY PRN 08/14/19 [History] Oxybutynin Chloride [Ditropan] 5 mg PO QAM 08/14/19 [History] Psyllium Husk (with Sugar) [Metamucil Powder] 1 - 2 tsp PO DAILY 08/14/19 [History] Simvastatin 80 mg PO HS 08/14/19 [History] Ultra Vitamin Vm 33 1 tab PO DAILY 08/14/19 [History] Apixaban [Eliquis] 5 mg PO BID #60 tab 08/16/19 [Rx] Levothyroxine Sodium [Synthroid] 125 mcg PO DAILY@0630 #30 tab 08/16/19 [Rx] Verapamil Sr [Isoptin Sr] 120 mg PO DAILY #30 tablet.er 08/16/19 [Rx] Follow up Appointment(s)/Referral(s): Dima Carrasco MD [STAFF PHYSICIAN] - 08/23/19 9:00 am (With Emilee EDOUARD) [facility], [NON-STAFF] - Rosanne Bryant MD [Primary Care Provider] - 08/22/19 10:20 am Patient Instructions/Handouts: Atrial Flutter (DC), Safe Use of Anticoagulants (DC) Discharge Disposition: HOME SELF-CARE
--- NOTE | 2019-08-16 15:11 | P.PN ---
Subjective Progress Note Date: 08/16/19 Patient is a 74-year-old female with a past medical history significant for hypertension, hypothyroidism, and dyslipidemia who is sent to the emergency department by her primary care doctor, Dr. Bryant. Patient states she was in the office seeing Dr. Bryant following up on labs when she was noted to have an elevated heart rate. The patient was completely asymptomatic at that time. Denies any palpitations, chest pain, chest pressure, neck pain, back pain, shortness of breath, or dizziness. Dr. Bryant obtained an EKG which showed atrial fibrillation with RVR, rate 118 bpm. Patient states she has no history of atrial fibrillation but last January when she went to get cataract surgery she was told "her heart was racing" and physician would not do her surgery. She states she was asymptomatic at that time as well. She didn't follow-up with her PCP who did an EKG which was normal at that time per the patient. Over the last few weeks, patient denies any symptoms of palpitations, chest pain, shortness of breath on exertion, dizziness or syncope. Endorses a good energy level and states that her exercise tolerance is only limited due to her arthritis. Dr. Bryant referred the patient to the emergency department for further evaluation. Upon presentation here, EKG showed rapid atrial tachycardia/atrial fibrillation with RVR, rate 140 bpm. Patient's blood pressure was stable. She was started o n IV Cardizem. Patient seen and examined resting in bed in the emergency department. States she feels a little "shaky" because she is nervous about being in the emergency department. Denies any chest pain, palpitations, shortness of breath or dizziness. No history of anemia or bleeding problems. 08/16/2019 Patient was initiated on Eliquis yesterday as well as verapamil 120 mg daily, dose of Synthroid was adjusted as well. Echocardiogram with Doppler study was performed which revealed an ejection fraction of greater than 70%. I pressure 116/68, heart rate in the 60s to 70s, 97% on room air. Objective - Vital Signs Vital signs: Vital Signs Temp 96.0 F L 08/16/19 08:00 Pulse 67 08/16/19 11:56 Resp 18 08/16/19 11:56 BP 117/69 08/16/19 11:56 Pulse Ox 97 08/16/19 11:56 Intake & Output 08/15/19 08/16/19 08/16/19 18:59 06:59 18:59 Intake Total 600 480 604 Output Total 600 Balance 0 480 604 Weight 115.5 kg Intake: Oral 600 480 604 Output: Urine 600 Other: Voiding Method Toilet Toilet Toilet # Voids 2 1 - Exam Patient seen and examined lying in bed, in no acute distress Lungs are clear to auscultation bilaterally Heart is irregularly irregular, tachycardic No elevated JVD No lower extremity edema Abdomen soft and nontender - Labs CBC & Chem 7: 08/16/19 05:41 08/14/19 12:19 Assessment and Plan Plan: IMPRESSION / PLAN: #1 New-onset atrial fibrillation with RVR, paroxysmal #2 Hypertension #3 Dyslipidemia #4 Hypothyroidism Plan From cardiology's perspective, patient may be able to be discharged home today on verapamil 120 mg daily and Eliquis 5 mg one tablet by mouth twice a day. We will make a follow-up appointment with in the office 2 weeks post discharge. DNP note has been reviewed, I agree with a documented findings and plan of care. Patient was seen and examined.
--- NOTE | 2019-08-24 11:23 | CDI ---
Documentation Clarification Form Date: 08/24/19 From: Annamaria Serrano Phone: If you have a question about this query, please contact Suzie Christy Interactive Developer at [phone] between 8am and 5pm. Admit Date: 08/14/19 Discharge Date:08/16/19 Patient Name: Sangita Yusuf Visit Number: [id number] ATTENTION: The Clinical Documentation Specialists (CDI) and [facility] Coding Staff appreciate your assistance in clarifying documentation. Please respond to the clarification below the line at the bottom and electronically sign. The CDI & [facility] Coding staff will review the response and follow-up if needed. Please note: Queries are made part of the Legal Health Record. If you have any questions, please contact the author of this message via ITS. Dear Dr Dima Carrasco Atrial Flutter is documented in the ED note. Documentation in the H&P and Dr. Sandoval's 08/15 progress note states EKG showing atrial flutter with variable AV block. History/Risk factors: Hypertension, obesity, iatrogenic hyperthyroidism Clinical Indicators: Elevated pulse in doctor's office. EKG at that time showed atrial fibrillation EKG/telemetry: Atrial flutter with variable AV block and PVC, rate of 140 Treatment: IV Diltiazem, sent home on Eliquis In your professional opinion, in order to capture the severity of condition; can you please clarify the type of Atrial Flutter if known? Typical/Type I Atypical/Type II Other, please specify Unable to determine MTDD
== END 2019-08-16 15:42 | disposition home health service (06) | DRG 310 ==
LOC: EC 11:58 → 3SCARD 13:14
PROVIDERS: ADMIT Internal Medicine; ATTEND Internal Medicine
DX: I48.0 Paroxysmal atrial fibrillation (principal); I49.3 Ventricular premature depolarization; I48.92 Unspecified atrial flutter; E05.80 Other thyrotoxicosis without thyrotoxic crisis or storm; E03.9 Hypothyroidism, unspecified; E66.9 Obesity, unspecified; E78.5 Hyperlipidemia, unspecified; I10 Essential (primary) hypertension; I44.30 Unspecified atrioventricular block; M16.0 Bilateral primary osteoarthritis of hip; Z79.82 Long term (current) use of aspirin; Z79.890 Hormone replacement therapy; Z79.899 Other long term (current) drug therapy; Z68.39 Body mass index [BMI] 39.0-39.9, adult
CPT/HCPCS: 36415; 71046; 80053; 80061; 83735; 84439; 84443; 84481; 84484; 85025; 85049; 85610; 85730; 93005; 93306; 96374; 96375; 99291

== ENCOUNTER 2022-06-16 09:37 | Emergency (ER) | payer MEDICARE ==
[2022-06-16 09:53] VITALS: TEMP 98.5
--- NOTE | 2022-06-16 10:18 | ED ---
General Adult HPI - General Chief complaint: GI Bleed Stated complaint: PCP sent, bleeding from rectom Time Seen by Provider: 06/16/22 09:50 Source: patient, RN notes reviewed, old records reviewed Mode of arrival: wheelchair Limitations: no limitations - History of Present Illness Initial comments: This is a 77-year-old female presents emergency Department complaining that on Wednesday she had vaginal bleeding which she has not had any ears. Patient states then yesterday she had no more vaginal bleeding and then again this morning she had quite a bit of vaginal bleeding. Patient denies any abdominal pain. Patient denies any nausea vomiting diarrhea. Patient denies any back pain. Patient denies any fever chills per patient denies any previous history of similar. Patient denies lightheadedness or dizziness. Patient denies any shortness of breath or palpitations. Patient is on eliquis. - Related Data Home Medications Medication Instructions Recorded Confirmed Acetaminophen/Diphenhydramine 1 tab PO HS PRN 08/14/19 08/14/19 [Tylenol PM 500-25mg] Aspirin EC [Ecotrin Low Dose] 81 mg PO DAILY 08/14/19 08/14/19 Beta-Carotene [Beta Carotene] 25,000 unit PO DAILY 08/14/19 08/14/19 Cranberry Fruit Extract [Cranberry] 500 mg PO DAILY 08/14/19 08/14/19 Desoximetasone [Desoximetasone 1 applic TOPICAL BID 08/14/19 08/14/19 0.05%] Glucosamine-Chondr 500-400Mg 2 tab PO DAILY 08/14/19 08/14/19 Hydrocortisone Cream 1 applic TOPICAL BID 08/14/19 08/14/19 [Hydrocortisone 2.5% Cream] Ibuprofen/Diphenhydramine HCl 1 cap PO HS PRN 08/14/19 08/14/19 [Advil Pm Liqui-Gels] Naproxen Sodium [Aleve] 220 - 440 mg PO DAILY PRN 08/14/19 08/14/19 Oxybutynin Chloride [Ditropan] 5 mg PO QAM 08/14/19 08/14/19 Psyllium Husk (with Sugar) 1 - 2 tsp PO DAILY 08/14/19 08/14/19 [Metamucil Powder] Simvastatin 80 mg PO HS 08/14/19 08/14/19 Ultra Vitamin Vm 33 1 tab PO DAILY 08/14/19 08/14/19 hydroCHLOROthiazide 50 mg PO QAM 08/14/19 08/14/19 Previous Rx's Medication Instructions Recorded Apixaban [Eliquis] 5 mg PO BID #60 tab 08/16/19 Levothyroxine Sodium [Synthroid] 125 mcg PO DAILY@0630 #30 tab 08/16/19 Verapamil Sr [Isoptin Sr] 120 mg PO DAILY #30 tablet.er 08/16/19 Allergies Allergy/AdvReac Type Severity Reaction Status Date / Time No Known Allergies Allergy Verified 06/16/22 09:53 Review of Systems ROS Statement: Those systems with pertinent positive or pertinent negative responses have been documented in the HPI. ROS Other: All systems not noted in ROS Statement are negative. Past Medical History Past Medical History: Hyperlipidemia, Hypertension, Thyroid Disorder Additional Past Medical History / Comment(s): overactive bladder History of Any Multi-Drug Resistant Organisms: None Reported Past Surgical History: Orthopedic Surgery, Tubal Ligation Additional Past Surgical History / Comment(s): left shoulder replacement; elbow fracture with repair; hemmoroid surgery Past Psychological History: No Psychological Hx Reported Smoking Status: Never smoker Past Alcohol Use History: None Reported Past Drug Use History: None Reported General Exam - General Exam Comments Initial Comments: GENERAL: Patient is well-developed and well-nourished. Patient is nontoxic and well- hydrated and is in no acute distress. ENT: Neck is soft and supple. No significant lymphadenopathy is noted. Oropharynx is clear. Moist mucous membranes. Neck has full range of motion without eliciting any pain. EYES: The sclera were anicteric and conjunctiva were pink and moist. Extraocular movements were intact and pupils were equal round and reactive to light. Eyelids were unremarkable. PULMONARY: Unlabored respirations. Good breath sounds bilaterally. No audible rales rhonchi or wheezing was noted. CARDIOVASCULAR: There is a regular rate and rhythm without any murmurs gallops or rubs. ABDOMEN: Soft and nontender with normal bowel sounds. Patient has some fullness in the suprapubic region. SKIN: Skin is clear with no lesions or rashes and otherwise unremarkable. NEUROLOGIC: Patient is alert and oriented x3. Cranial nerves II through XII are grossly intact. Motor and sensory are also intact. Normal speech, volume and content. Symmetrical smile. MUSCULOSKELETAL: Normal extremities with adequate strength and full range of motion. LYMPHATICS: No significant lymphadenopathy is noted PSYCHIATRIC: Normal psychiatric evaluation. Limitations: no limitations Course Vital Signs 06/16/22 09:50 Temperature 98.5 F Pulse Rate 82 Respiratory 16 Rate Blood Pressure 133/67 O2 Sat by Pulse 95 Oximetry Medical Decision Making - Medical Decision Making I did a vaginal exam patient had very difficult time using the bed I attempted that was able to see that there was clots but no active bleeding. I did not see anything else significant to indicate why she was bleeding. It did appear was coming from the cervical os though I did not get a clear view of it. Patient's bimanual exam was normal and did not cause her any pain I spoke with Dr. Didier Velásquez felt there was no active bleeding and stable vital signs and hemoglobin 14.6 the patient could follow-up in the office. Patient will be given specific instructions come back the bleeding suddenly becomes heavier she isn't short of breath or lightheaded. - Lab Data Result diagrams: 06/16/22 10:31 06/16/22 10:31 Lab Results 06/16/22 06/16/22 06/16/22 Range/Units 10:31 10:31 10:31 WBC 9.9 (3.8-10.6) k/uL RBC 4.53 (3.80-5.40) m/uL Hgb 14.6 (11.4-16.0) gm/dL Hct 43.2 (34.0-46.0) % MCV 95.3 (80.0-100.0) fL MCH 32.2 (25.0-35.0) pg MCHC 33.8 (31.0-37.0) g/dL RDW 13.2 (11.5-15.5) % Plt Count 293 (150-450) k/uL MPV 6.7 Neutrophils % 78 % Lymphocytes % 13 % Monocytes % 5 % Eosinophils % 2 % Basophils % 1 % Neutrophils # 7.7 (1.3-7.7) k/uL Lymphocytes # 1.3 (1.0-4.8) k/uL Monocytes # 0.5 (0-1.0) k/uL Eosinophils # 0.2 (0-0.7) k/uL Basophils # 0.1 (0-0.2) k/uL PT 10.7 (9.0-12.0) sec INR 1.0 (<1.2) APTT 25.1 (22.0-30.0) sec Sodium (137-145) mmol/L Potassium (3.5-5.1) mmol/L Chloride (98-107) mmol/L Carbon Dioxide (22-30) mmol/L Anion Gap mmol/L BUN (7-17) mg/dL Creatinine (0.52-1.04) mg/dL Est GFR (CKD-EPI)AfAm (>60 ml/min/1.73 sqM) Est GFR (CKD-EPI)NonAf (>60 ml/min/1.73 sqM) Glucose (74-99) mg/dL Calcium (8.4-10.2) mg/dL Total Bilirubin (0.2-1.3) mg/dL AST (14-36) U/L ALT (4-34) U/L Alkaline Phosphatase (38-126) U/L Total Protein (6.3-8.2) g/dL Albumin (3.5-5.0) g/dL Urine Color Dark Red Urine Appearance Bloody H (Clear) Urine RBC >182 H (0-5) /hpf Urine WBC >182 H (0-5) /hpf Blood Type Blood Type Confirm Blood Type Recheck Bld Type Recheck Status Antibody Screen Spec Expiration Date 06/16/22 06/16/22 06/16/22 Range/Units 10:31 10:31 10:50 WBC (3.8-10.6) k/uL RBC (3.80-5.40) m/uL Hgb (11.4-16.0) gm/dL Hct (34.0-46.0) % MCV (80.0-100.0) fL MCH (25.0-35.0) pg MCHC (31.0-37.0) g/dL RDW (11.5-15.5) % Plt Count (150-450) k/uL MPV Neutrophils % % Lymphocytes % % Monocytes % % Eosinophils % % Basophils % % Neutrophils # (1.3-7.7) k/uL Lymphocytes # (1.0-4.8) k/uL Monocytes # (0-1.0) k/uL Eosinophils # (0-0.7) k/uL Basophils # (0-0.2) k/uL PT (9.0-12.0) sec INR (<1.2) APTT (22.0-30.0) sec Sodium 136 L (137-145) mmol/L Potassium 3.3 L (3.5-5.1) mmol/L Chloride 96 L (98-107) mmol/L Carbon Dioxide 26 (22-30) mmol/L Anion Gap 14 mmol/L BUN 18 H (7-17) mg/dL Creatinine 0.69 (0.52-1.04) mg/dL Est GFR (CKD-EPI)AfAm >90 (>60 ml/min/1.73 sqM) Est GFR (CKD-EPI)NonAf 83 (>60 ml/min/1.73 sqM) Glucose 121 H (74-99) mg/dL Calcium 8.9 (8.4-10.2) mg/dL Total Bilirubin 0.6 (0.2-1.3) mg/dL AST 33 (14-36) U/L ALT 19 (4-34) U/L Alkaline Phosphatase 38 (38-126) U/L Total Protein 7.7 (6.3-8.2) g/dL Albumin 4.4 (3.5-5.0) g/dL Urine Color Urine Appearance (Clear) Urine RBC (0-5) /hpf Urine WBC (0-5) /hpf Blood Type A Positive Blood Type Confirm A Positive Blood Type Recheck No Previous Record Bld Type Recheck Status CABO Indicated Antibody Screen NEGATIVE Spec Expiration Date 06/19/20222330 Disposition Clinical Impression: Abnormal uterine bleeding Disposition: HOME SELF-CARE Additional Instructions: Patient is to return to the emergency department if there is heavy vaginal bleeding or any lightheadedness or near syncope or shortness of breath. Patient is to call Dr. Velásquez's office today and asked for [employer] so that they can set up an appointment for her to be seen in the office. Is patient prescribed a controlled substance at d/c from ED?: No Referrals: Jessica Velásquez MD [STAFF PHYSICIAN] - 1-2 days Time of Disposition: 12:52
[2022-06-16 10:59] LABS: Basophils # (A) 0.1 k/uL (0-0.2); Basophils % (A) 1 %; Eosinophils # (A) 0.2 k/uL (0-0.7); Eosinophils % (A) 2 %; HCT 43.2 % (34.0-46.0); HGB 14.6 gm/dL (11.4-16.0); Lymphocytes # (A) 1.3 k/uL (1.0-4.8); Lymphocytes % (A) 13 %; MCH 32.2 pg (25.0-35.0); MCHC 33.8 g/dL (31.0-37.0); MCV 95.3 fL (80.0-100.0); Mean Platelet Volume 6.7; Monocytes # (A) 0.5 k/uL (0-1.0); Monocytes % (A) 5 %; Neutrophils # (A) 7.7 k/uL (1.3-7.7); Neutrophils % (A) 78 %; Platelet Count 293 k/uL (150-450); RBC 4.53 m/uL (3.80-5.40); RDW 13.2 % (11.5-15.5); WBC 9.9 k/uL (3.8-10.6)
[2022-06-16 11:07] LABS: Partial Thromboplastin Time 25.1 sec (22.0-30.0); Prothrombin Time 10.7 sec (9.0-12.0)
[2022-06-16 11:13] LABS: RBC,Urine >182 /hpf (0-5); WBC,Urine >182 /hpf (0-5)
[2022-06-16 11:15] LABS: Appearance,Urine Bloody (Clear); Color,Urine Dark Red
[2022-06-16 11:24] LABS: ALT 19 U/L (4-34); AST 33 U/L (14-36); African American GFR (CKD) >90 (>60 ml/min/1.73 sqM); Albumin 4.4 g/dL (3.5-5.0); Alkaline Phosphatase 38 U/L (38-126); Anion Gap 14 mmol/L; Blood Urea Nitrogen 18 mg/dL (7-17); Calcium 8.9 mg/dL (8.4-10.2); Carbon Dioxide 26 mmol/L (22-30); Chloride 96 mmol/L (98-107); Glucose 121 mg/dL (74-99); Non-African American GFR(CKD) 83 (>60 ml/min/1.73 sqM); Potassium 3.3 mmol/L (3.5-5.1); Sodium 136 mmol/L (137-145); Total Bilirubin 0.6 mg/dL (0.2-1.3); Total Protein 7.7 g/dL (6.3-8.2)
--- NOTE | 2022-06-16 12:38 | US ---
EXAMINATION TYPE: US pelvic complete DATE OF EXAM: 06/16/2022 COMPARISON: NONE CLINICAL HISTORY: Vaginal bleeding. TECHNIQUE: Transabdominal (TA). Date of LMP: postmenopausal EXAM MEASUREMENTS: Uterus: 9.2 x 4.3 x 5.6 cm Endometrial Stripe: 2.0 cm Right Ovary: not visualized Left Ovary: not visualized cm 1. Uterus: Anteverted wnl 2. Endometrium: grossly thickened and heterogeneous 3. Right Ovary: not visualized 4. Left Ovary: not visualized 5. Bilateral Adnexa: wnl 6. 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
[2022-06-16 13:16] VITALS: BP 135/70; PULSE 78; RESP 18
== END 2022-06-16 13:15 | disposition home or self-care (01) ==
LOC: EC 09:37
DX: N93.9 Abnormal uterine and vaginal bleeding, unspecified (principal); E78.5 Hyperlipidemia, unspecified; I10 Essential (primary) hypertension
CPT/HCPCS: 36415; 76856; 80053; 81001; 85025; 85610; 85730; 86850; 86900; 86901; 87086; 99284; 99285

== ENCOUNTER 2025-02-01 16:02 | Inpatient (IN) | payer MEDICARE ==
[2025-02-01 16:34] LABS: Basophils # (A) 0.05 10*3/uL (0.00-0.10); Basophils % (A) 0.4 %; Eosinophils # (A) 0.12 10*3/uL (0.04-0.35); Eosinophils % (A) 0.9 %; HCT 36.9 % (37.2-46.3); HGB 13.4 g/dL (12.0-15.0); Lymphocytes # (A) 0.81 10*3/uL (0.90-5.00); Lymphocytes % (A) 6.2 %; MCH 32.8 pg (27.0-32.0); MCHC 36.3 g/dL (32.0-37.0); MCV 90.4 fL (80.0-97.0); Mean Platelet Volume 8.3 fL (9.5-12.2); Monocytes # (A) 0.93 10*3/uL (0.20-1.00); Monocytes % (A) 7.2 %; Neutrophils # (A) 11.02 10*3/uL (1.80-7.70); Neutrophils % (A) 84.9 %; Platelet Count 401 10*3/uL (140-440); RBC 4.08 10*6/uL (4.10-5.20); RDW 12.8 % (11.5-14.5); WBC 12.98 10*3/uL (4.50-10.00)
--- NOTE | 2025-02-01 16:45 | ED ---
General Adult HPI - General Chief complaint: Nausea/Vomiting/Diarrhea Stated complaint: Diarrhea Time Seen by Provider: 02/01/25 16:04 Source: patient, EMS Mode of arrival: EMS Limitations: no limitations - History of Present Illness Initial comments: Dictation was produced using [employer] dictation software. please excuse any grammatical, word or spelling errors. Chief Complaint: 80-year-old female with diarrhea History of Present Illness: Patient is 80-year-old female presents to the emergency department diarrhea. Patient states that her diarrhea is black. She does take anticoagulation medications. Denies any pain complaints. Patient was too weak so she called EMS otherwise she would have drove here. Patient has past medical history of dyslipidemia hypertension thyroid disease. The ROS documented in this emergency department record has been reviewed and confirmed by me. Those systems with pertinent positive or negative responses have been documented in the HPI. All other systems are other negative and/or noncontributory. - Related Data Home Medications Medication Instructions Recorded Confirmed Acetaminophen/Diphenhydramine 1 tab PO HS PRN 08/14/19 08/14/19 [Tylenol PM 500-25mg] Aspirin EC [Ecotrin Low Dose] 81 mg PO DAILY 08/14/19 08/14/19 Beta-Carotene [Beta Carotene] 25,000 unit PO DAILY 08/14/19 08/14/19 Cranberry Fruit Extract [Cranberry] 500 mg PO DAILY 08/14/19 08/14/19 Desoximetasone [Desoximetasone 1 applic TOPICAL BID 08/14/19 08/14/19 0.05%] Glucosamine-Chondr 500-400Mg 2 tab PO DAILY 08/14/19 08/14/19 Hydrocortisone Cream 1 applic TOPICAL BID 08/14/19 08/14/19 [Hydrocortisone 2.5% Cream] Ibuprofen/Diphenhydramine HCl 1 cap PO HS PRN 08/14/19 08/14/19 [Advil Pm Liqui-Gels] Naproxen Sodium [Aleve] 220 - 440 mg PO DAILY PRN 08/14/19 08/14/19 Psyllium Husk (with Sugar) 1 - 2 tsp PO DAILY 08/14/19 08/14/19 [Metamucil Powder] Simvastatin [Zocor] 80 mg PO HS 08/14/19 08/14/19 Ultra Vitamin Vm 33 1 tab PO DAILY 08/14/19 08/14/19 hydroCHLOROthiazide 50 mg PO QAM 08/14/19 08/14/19 oxyBUTYnin chloride [Ditropan] 5 mg PO QAM 08/14/19 08/14/19 Previous Rx's Medication Instructions Recorded Apixaban [Eliquis] 5 mg PO BID #60 tab 08/16/19 Levothyroxine Sodium [Synthroid] 125 mcg PO DAILY@0630 #30 tab 08/16/19 Verapamil Sr [Isoptin Sr] 120 mg PO DAILY #30 tablet.er 08/16/19 Allergies Allergy/AdvReac Type Severity Reaction Status Date / Time No Known Allergies Allergy Verified 06/16/22 09:53 Review of Systems ROS Statement: Those systems with pertinent positive or pertinent negative responses have been documented in the HPI. ROS Other: All systems not noted in ROS Statement are negative. Past Medical History Past Medical History: Hyperlipidemia, Hypertension, Thyroid Disorder Additional Past Medical History / Comment(s): overactive bladder History of Any Multi-Drug Resistant Organisms: None Reported Past Surgical History: Orthopedic Surgery, Tubal Ligation Additional Past Surgical History / Comment(s): left shoulder replacement; elbow fracture with repair; hemmoroid surgery Past Psychological History: No Psychological Hx Reported Smoking Status: Never smoker Past Alcohol Use History: None Reported Past Drug Use History: None Reported General Exam - General Exam Comments Initial Comments: PHYSICAL EXAM: General Impression: Alert and oriented x3, not in acute distress HEENT: Normocephalic atraumatic, extra-ocular movements intact, pupils equal and reactive to light bilaterally, dry mucous membranes Cardiovascular: Heart regular rate and rhythm Chest: Able to complete full sentences, no retractions, no tachypnea Abdomen: abdomen soft, non-tender, non-distended, no organomegaly Musculoskeletal: Pulses present and equal in all extremities, no peripheral edema Motor: no focal deficits noted Neurological: CN II-XII grossly intact, no focal motor or sensory deficits noted Skin: Intact with no visualized rashes Psych: Normal affect and mood Limitations: no limitations Course Vital Signs 02/01/25 16:06 Temperature 98.6 F Pulse Rate 80 Respiratory 18 Rate Blood Pressure 119/76 O2 Sat by Pulse 94 L Oximetry EKG Findings - EKG Comments: EKG Findings:: My EKG interpretation: Ventricular rate 100, A-fib with RVR, QRS 102, QTc 49. No QTC prolongation, no ST or T-wave changes noted. Significant artifact limiting interpretation. Overall this EKG is nonspecific Medical Decision Making - Medical Decision Making Was pt. sent in by a medical professional or institution (GISELE Phillips, INSPECTOR TUBES, urgent care, hospital, or shelter...) When possible be specific @ -No Did you speak to anyone other than the patient for history (EMS, parent, family, police, friend...)? What history was obtained from this source @ -No Did you review nursing and triage notes (agree or disagree)? Why? @ -I reviewed and agree with nursing and triage notes Were old charts reviewed (outside hosp., previous admission, EMS record, old EKG, old radiological studies, urgent care reports/EKG's, shelter records)? Report findings @ -No old charts were reviewed Differential Diagnosis (chest pain, altered mental status, abdominal pain women, abdominal pain men, vaginal bleeding, musculoskeletal, weakness, fever, dyspnea, syncope, headache, dizziness, GI bleed, back pain, seizure, CVA, palpatations, mental health)? @ -Differential GI Bleed: Esophageal varices, aortoenteric fistula, Tory-Gatica, gastritis, peptic ulcer disease, diverticulosis, inflammatory bowel disease, hemorrhoids, fissure, colitis, malignancy, Meckel's diverticulum, this is not meant to be an all- inclusive list. EKG interpreted by me (3pts min.). @ -See above X-rays interpreted by me (1pt min.). @ -None done CT interpreted by me (1pt min.). @ -None done U/S interpreted by me (1pt. min.). @ -None done What testing was considered but not performed or refused? (CT, X-rays, U/S, labs)? Why? @ -None What meds were considered but not given or refused? Why? @ -None Was smoking cessation discussed for >3mins.? @ -No Were there social determinants of health that impacted care today? How? (Homelessness, low income, unemployed, alcoholism, drug addiction, transportation, low edu. Level, literacy, decrease access to med. care, [facility], rehab)? @ -No Was there de-escalation of care discussed even if they declined (Discuss DNR or withdrawal of care, Hospice)? DNR status @ -No What co-morbidities impacted this encounter? (DM, HTN, Smoking, COPD, CAD, Cancer, CVA, ARF, Chemo, Hep., AIDS, mental health diagnosis, sleep apnea, morbid obesity)? @ -Anticoagulation use Was patient admitted / discharged? Hospital course, mention meds given and route, prescriptions, significant lab abnormalities, going to OR and other pertinent info. @ -80-year-old female with black loose stool for the last 3 weeks. Vital signs stable. Patient otherwise in no acute distress. Laboratory evaluation obtained. Hemoglobin stable. Hyponatremic 124, hypokalemia 3.0. Stool occult blood positive. Magnesium 1.5. Patient given Protonix and electrolyte replacement will be admitted consultation to GI. Did you discuss the management of the patient with other professionals (professionals i.e. , PA, INSPECTOR [employer], lab, RT, psych nurse, socially responsible investment adviser, incident commander, teacher, chairman president and chief executive officer, piano case and bench assembler)? Give summary @ -No Was critical care preformed (if so, how long)? @ -No Undiagnosed new problem with uncertain prognosis? @ -No Drug Therapy requiring intensive monitoring for toxicity (Heparin, Nitro, Insulin, Cardizem)? @ -No Were any procedures done? @ -No Diagnosis/symptom? Acute, or Chronic, or Acute on Chronic? Uncomplicated (without systemic symptoms) or Complicated (systemic symptoms)? @ -GI bleed Side effects of treatment? @ -No Exacerbation, Progression, or Severe Exacerbation? @ -No Poses a threat to life or bodily function? How? (Chest pain, USA, PA, pneumonia, PE, COPD, DKA, ARF, appy, cholecystitis, CVA, Diverticulitis, Homicidal, Suicidal, threat to staff... and all critical care pts) @ -yes - Lab Data Result diagrams: 02/01/25 16:23 02/01/25 16:23 Lab Results 02/01/25 02/01/25 02/01/25 Range/Units 16:23 16:23 16:23 WBC 12.98 H (4.50-10.00) 10*3/uL RBC 4.08 L (4.10-5.20) 10*6/uL Hgb 13.4 (12.0-15.0) g/dL Hct 36.9 L (37.2-46.3) % MCV 90.4 (80.0-97.0) fL MCH 32.8 H (27.0-32.0) pg MCHC 36.3 (32.0-37.0) g/dL Plt Count 401 (140-440) 10*3/uL MPV 8.3 L (9.5-12.2) fL Immature Gran % (Auto) 0.4 % Neutrophils % 84.9 % Lymphocytes % 6.2 % Monocytes % 7.2 % Eosinophils % 0.9 % Basophils % 0.4 % Immature Gran # 0.05 H (0.00-0.04) 10*3/uL Neutrophils # 11.02 H (1.80-7.70) 10*3/uL Lymphocytes # 0.81 L (0.90-5.00) 10*3/uL Monocytes # 0.93 (0.20-1.00) 10*3/uL Eosinophils # 0.12 (0.04-0.35) 10*3/uL Basophils # 0.05 (0.00-0.10) 10*3/uL Sodium 124 L (137-145) mmol/L Potassium 3.0 L (3.5-5.1) mmol/L Chloride 86 L (98-107) mmol/L Carbon Dioxide 29 (22-30) mmol/L Anion Gap 9 mmol/L BUN 18 H (7-17) mg/dL Creatinine 0.72 (0.52-1.04) mg/dL Est GFR (CKD-EPI)AfAm >90 (>60 ml/min/1.73 sqM) Est GFR (CKD-EPI)NonAf 79 (>60 ml/min/1.73 sqM) Glucose 111 H (74-99) mg/dL Plasma Lactic Acid Michael 1.6 (0.7-2.0) mmol/L Calcium 9.0 (8.4-10.2) mg/dL Magnesium 1.5 L (1.6-2.3) mg/dL Total Bilirubin 0.9 (0.2-1.3) mg/dL AST 30 (14-36) U/L ALT 17 (4-34) U/L Alkaline Phosphatase 57 (38-126) U/L Total Protein 7.1 (6.3-8.2) g/dL Albumin 3.8 (3.5-5.0) g/dL Lipase 153 (23-300) U/L Stool Occult Blood (Negative) 02/01/25 Range/Units 17:12 WBC (4.50-10.00) 10*3/uL RBC (4.10-5.20) 10*6/uL Hgb (12.0-15.0) g/dL Hct (37.2-46.3) % MCV (80.0-97.0) fL MCH (27.0-32.0) pg MCHC (32.0-37.0) g/dL Plt Count (140-440) 10*3/uL MPV (9.5-12.2) fL Immature Gran % (Auto) % Neutrophils % % Lymphocytes % % Monocytes % % Eosinophils % % Basophils % % Immature Gran # (0.00-0.04) 10*3/uL Neutrophils # (1.80-7.70) 10*3/uL Lymphocytes # (0.90-5.00) 10*3/uL Monocytes # (0.20-1.00) 10*3/uL Eosinophils # (0.04-0.35) 10*3/uL Basophils # (0.00-0.10) 10*3/uL Sodium (137-145) mmol/L Potassium (3.5-5.1) mmol/L Chloride (98-107) mmol/L Carbon Dioxide (22-30) mmol/L Anion Gap mmol/L BUN (7-17) mg/dL Creatinine (0.52-1.04) mg/dL Est GFR (CKD-EPI)AfAm (>60 ml/min/1.73 sqM) Est GFR (CKD-EPI)NonAf (>60 ml/min/1.73 sqM) Glucose (74-99) mg/dL Plasma Lactic Acid Michael (0.7-2.0) mmol/L Calcium (8.4-10.2) mg/dL Magnesium (1.6-2.3) mg/dL Total Bilirubin (0.2-1.3) mg/dL AST (14-36) U/L ALT (4-34) U/L Alkaline Phosphatase (38-126) U/L Total Protein (6.3-8.2) g/dL Albumin (3.5-5.0) g/dL Lipase (23-300) U/L Stool Occult Blood Positive H (Negative) Disposition Clinical Impression: GI bleed Disposition: ADMITTED IP TO THIS HOSP Condition: Fair Referrals: Rj Carpio MD [Primary Care Provider] - 1-2 days Decision Time: 17:53
[2025-02-01] MEDS: SODIUM CHLORIDE 0.9% 1,000 ML IV STA ×2 (16:46→18:04)
[2025-02-01 16:49] LABS: ALT 17 U/L (4-34); AST 30 U/L (14-36); African American GFR (CKD) >90 (>60 ml/min/1.73 sqM); Albumin 3.8 g/dL (3.5-5.0); Alkaline Phosphatase 57 U/L (38-126); Anion Gap 9 mmol/L; Blood Urea Nitrogen 18 mg/dL (7-17); Carbon Dioxide 29 mmol/L (22-30); Chloride 86 mmol/L (98-107); Glucose 111 mg/dL (74-99); Lipase 153 U/L (23-300); Magnesium 1.5 mg/dL (1.6-2.3); Non-African American GFR(CKD) 79 (>60 ml/min/1.73 sqM); Sodium 124 mmol/L (137-145); Total Bilirubin 0.9 mg/dL (0.2-1.3); Total Protein 7.1 g/dL (6.3-8.2)
[2025-02-01] MEDS ORDERED: NALOXONE 0.4 MG/ML 1 ML VIAL IV PRN (17:50)
[2025-02-01] MEDS ORDERED: POTASSIUM CHLORIDE 40 MEQ in WATER FOR INJECTION 1 100ML.BAG IVPB STA (17:53)
[2025-02-01] MEDS: PANTOPRAZOLE 40 MG/10 ML VIAL IVP STA (18:02)
[2025-02-01] MEDS: SODIUM CHLORIDE 0.9% 500 ML 500 ML IV STA (18:02)
[2025-02-01] MEDS: SODIUM CHLORIDE 0.9% 1,000 ML IV SCH (18:03)
[2025-02-01] MEDS: MAGNESIUM SULFATE-D5W PMX 1 GM in DEXTROSE/WATER 1 100ML.BAG IVPB SCH (18:06)
[2025-02-01] MEDS: POTASSIUM CHLORIDE 20 MEQ in WATER FOR INJECTION 1 100ML.BAG IVPB SCH (21:01)
[2025-02-01] MEDS ORDERED: HYDROmorphone 0.5 MG/0.5 ML SYRINGE IVP PRN (22:22)
--- NOTE | 2025-02-01 22:28 | P.HPIM ---
History of Present Illness H&P Date: 02/01/25 Chief Complaint: Diarrhea Patient is a 80 year old female with past medical history of hyperlipidemia, hypertension, hypothyroidism, presented to the ED with diarrhea. Patient reports having diarrhea and states that it is black in color. She reports having diarrhea for 3 weeks that have been black in color. During this time she had 12- 16 bowel movements a day. Hasn't noticed bright red blood. She also mentions being on an anticoagulant for atrial fibrillation along with Verapamil. Associated with that she complains of weakness. She wasn't able to get up to go to the restroom. Weakness was the primary reason that prompted her to present to the ED. She also reports reduced appetite. Denies any recent diet changes. Denies being on any antibiotics recently. Additionally, she complains of bilateral hip and back pain which is limiting her movement that started today. Denies fever, chills, shortness of breath, cough, chest pain, palpitations, abdominal pain, nausea, vomiting, hematuria, dysuria, headache, slurred speech, numbness, tingling, blurred vision, double vision. ED documentation reviewed. In the ED patient was treated with magnesium sulfate 2 g, Protonix 40 mg IVP, 1.5L normal saline bolus, 0.9 at 130 mL/h. Vitals on admission T 98.6 F, CO 80, RR 18, BP 119/76, oxygen saturation 94% on room air EKG independently interpreted as atrial fibrillation, rate 100 bpm, QTc 489 ms Labs on admission show WBC 12.98, hemoglobin 13.4, platelet count 401, sodium 124, potassium 3.0, chloride 86, bicarb 29, BUN 18, creatinine 0.72, lactic acid 1.6, magnesium 1.5, total bilirubin 0.9, lipase 153 Stool occult blood is positive Review of systems: Pertinent positives and negatives as discussed in HPI, a complete review of systems was performed and all other systems are negative. Physical examination: Vital signs reviewed General: acute distress, appears at stated age Derm: warm, dry, intact Head: atraumatic, normocephalic, symmetric Eyes: EOMI, anicteric sclera Mouth: no lip lesion, mucus membranes moist Cardiovascular: S1 S2 reg, no murmur Lungs: CTA bilateral, no rhonchi, no rales, no accessory muscle use Abdominal: soft, non-tender to palpation Extremities: No cyanosis, clubbing, or pedal edema. Neuro: Alert, Oriented, extremity movements restricted due to back and hip pain Psych: appropriate affect Assessment/Plan: Patient is a 80 year old female with past medical history of hyperlipidemia, hypertension, hypothyroidism, overactive bladder presented to the ED with melanotic stools. Active: #. Melanotic stools #. Leukocytosis Patient complains of black diarrhea. Patient on Eliquis for Atrial fibrillation. Suspected gastropathy from Eliquis Stool occult blood test is positive Hemoglobin is stable at 13.4, WBC 12.98 on admission Continue Pantoprazole 40 mg PO BID Continue Ondansetron 4 mg IVP Q8HR PRN for nausea and vomiting Hold Eliquis Clear liquid diet Obtain C.diff, stool culture and iron profile Monitor CBC Continue telemetry monitoring GI consulted #. Hyponatremia, secondary to GI solute loss due to diarrhea and poor solute intake Sodium 124 on admission Received 1.5L bolus of normal saline in the ED Continue 0.9 normal saline at 130 ml/hr Obtain serum osmolality, urine osmolality, urine sodium Hold hydrochlorthiazide Monitor BMP #. Hypokalemia Potassium 3.0 on admission Potassium chloride 20 meq in the ED Monitor BMP #. Hypomagnesemia Magnesium 1.5 on admission Received magnesium sulfate 2 g in the ED Monitor magnesium #. Acute back and hip pain No bowel bladder dysfunction, no paresthesias Low risk for cord compression CT lumbar spine Lidocaine patch Dilaudid 1 mg once stat and Dilaudid 1 mg once PRN for pain management Chronic: #. Atrial fibrillation, controlled ventricular rate, on anticoagulation #. Hyperlipidemia #. Hypertension #. Hypothyroidism Continue Simvastatin 80 mg PO HS, Levothyroxine 125 mcg PO daily, Verapamil 120 mg PO daily F: 0.9 normal saline at 130 ml/hr E: Replete Na, K, Mg N: Clear liquid diet DVT prophylaxis: SCD GI prophylaxis: Pantoprazole 40 mg PO BID The patient is admitted with an anticipated more than 2 midnight stay for evaluation of melanotic stools CODE STATUS: FULL CODE Discussed with: Patient Anticipated discharge place: Past Medical History Past Medical History: Hyperlipidemia, Hypertension, Thyroid Disorder Additional Past Medical History / Comment(s): overactive bladder History of Any Multi-Drug Resistant Organisms: None Reported Past Surgical History: Orthopedic Surgery, Tubal Ligation Additional Past Surgical History / Comment(s): left shoulder replacement; elbow fracture with repair; hemmoroid surgery Past Psychological History: No Psychological Hx Reported Smoking Status: Never smoker Past Alcohol Use History: None Reported Past Drug Use History: None Reported Medications and Allergies Home Medications Medication Instructions Recorded Confirmed Type Simvastatin [Zocor] 80 mg PO HS 08/14/19 02/01/25 History hydroCHLOROthiazide 50 mg PO DAILY 08/14/19 02/01/25 History Apixaban [Eliquis] 5 mg PO BID #60 tab 08/16/19 02/01/25 Rx Verapamil Sr [Isoptin Sr] 120 mg PO DAILY #30 tablet.er 08/16/19 02/01/25 Rx Levothyroxine Sodium [Synthroid] 125 mcg PO DAILY 02/01/25 02/01/25 History Potassium Chloride ER [K-Dur 10] 10 meq PO DAILY 02/01/25 02/01/25 History Allergies Allergy/AdvReac Type Severity Reaction Status Date / Time No Known Allergies Allergy Verified 02/01/25 18:13 Physical Exam Vitals: Vital Signs Temp Pulse Resp BP Pulse Ox 02/01/25 18:38 84 22 94/47 95 02/01/25 16:06 98.6 F 80 18 119/76 94 L Intake and Output 02/01/25 02/01/25 02/01/25 06:59 14:59 22:59 Other: Weight 95.254 kg Results CBC & Chem 7: 02/01/25 16:23 02/01/25 16:23 Labs: Abnormal Lab Results - Last 24 Hours (Table) 02/01/25 02/01/25 02/01/25 Range/Units 16:23 16:23 17:12 WBC 12.98 H (4.50-10.00) 10*3/uL RBC 4.08 L (4.10-5.20) 10*6/uL Hct 36.9 L (37.2-46.3) % MCH 32.8 H (27.0-32.0) pg MPV 8.3 L (9.5-12.2) fL Immature Gran # 0.05 H (0.00-0.04) 10*3/uL Neutrophils # 11.02 H (1.80-7.70) 10*3/uL Lymphocytes # 0.81 L (0.90-5.00) 10*3/uL Sodium 124 L (137-145) mmol/L Potassium 3.0 L (3.5-5.1) mmol/L Chloride 86 L (98-107) mmol/L BUN 18 H (7-17) mg/dL Glucose 111 H (74-99) mg/dL Magnesium 1.5 L (1.6-2.3) mg/dL Stool Occult Blood Positive H (Negative)
[2025-02-01] MEDS: ONDANSETRON 4 MG/2 ML VIAL IVP PRN (22:29)
[2025-02-01] MEDS: HYDROmorphone 0.5 MG/0.5 ML SYRINGE IVP STA (22:32)
[2025-02-01] MEDS: LIDOCAINE 4% PATCH TOPICAL SCH (22:56)
[2025-02-02] MEDS: DILTIAZEM 125 MG in SODIUM CHLORIDE 0.9% 100 ML IV SCH (00:40)
[2025-02-02] MEDS: DILTIAZEM DRIP BOLUS FROM BAG 1 MG SOLN IV STA (00:44)
[2025-02-02] MEDS: HYDROmorphone 0.5 MG/0.5 ML SYRINGE IVP PRN (05:03)
[2025-02-02] MEDS ORDERED: IOPAMIDOL CONTRAST (ORAL USE) VIAL PO PRN (06:59)
[2025-02-02] MEDS: metroNIDAZOLE-NS PMX 500 MG in SALINE 1 100ML.BAG IVPB SCH (07:24)
[2025-02-02] MEDS: LEVOTHYROXINE 125 MCG TAB PO SCH (07:26)
[2025-02-02] MEDS ORDERED: PANTOPRAZOLE 40 MG TABLET PO SCH (07:30)
[2025-02-02 07:31] LABS: Appearance,Urine Clear (Clear); Bacteria,Urine Occasional /hpf; Bilirubin,Urine Negative (Negative); Blood,Urine Small (Negative); Color,Urine Colorless; Glucose,Urine (UA) Negative (Negative); Ketones,Urine Trace (Negative); Leukocyte Esterase,Urine Negative (Negative); Mucus,Urine Rare /hpf; Nitrite,Urine Negative (Negative); PH, Urine 6.5 (5.0-8.0); Protein,Urine Negative (Negative); RBC,Urine 2 /hpf (0-5); Specific Gravity,Urine 1.007 (1.001-1.035); Squamous Epithelial Cell,Urine <1 /hpf (0-4); Urobilinogen,Urine <2.0 mg/dL (<2.0); WBC,Urine 4 /hpf (0-5)
[2025-02-02] MEDS: PANTOPRAZOLE 40 MG/10 ML VIAL IVP SCH (08:03)
[2025-02-02] MEDS: VERAPAMIL SR 120 MG TABLET.ER PO SCH (08:53)
--- NOTE | 2025-02-02 10:23 | P.CONS ---
History of Present Illness - Reason for Consult Consult date: 02/02/25 GI bleed Requesting physician: Larry Serrano - Chief Complaint Diarrhea - History of Present Illness This a pleasant 80-year-old female with a past medical history of hyp erlipidemia, hypertension and thyroid disorder. And reported overactive bladder. Patient was brought into the emergency department secondary to diarrhea for the last 3 weeks duration. Patient's is at the bedside and gives the history as patient currently states that she does not know why she is here. Nursing is reporting that patient has been very confused last night and was found to have over a liter of urine in her bladder after being straight cathed. Following that patient did become more lucid however has become more confused over the last couple hours. Bladder scan showed about 300 mL in her bladder. They are going to put indwelling Small in. Patient's states that she has been having diarrhea for about the last 3 weeks duration most days and sometimes up to hourly. States that there is no blood in her stool but states over the last couple days he had noticed that it was black. She has no previous history of GI bleed. Last colonoscopy was several years ago. Patient hemoglobin normal.. Patient's states she has not been on any recent antibiotics, no new medications, she has had no fever or chills, no nausea or vomiting. She had been taking Pepto-Bismol for the diarrhea. At this is likely cause of black stool. Patient is afebrile. No history of colitis per 's knowledge. Leukocytosis on admission with hyponatremia and hypokalemia as well as hypomagnesemia. WBC 12.9 hemoglobin 13.4 hematocrit 36 platelet count 401,000 sodium 125 potassium 3.0 BUN 18 creatinine 0.2 glucose 111 magnesium 1.5 total bilirubin 0.9 AST 30 ALT 17 alkaline phosphatase 57 lipase 153 positive occult stool. Review of Systems REVIEW OF SYSTEMS: CARDIOPULMONARY: No chest pain or shortness of breath. Gastrointestinal: No abdominal pain. No nausea or vomiting. No hematemesis, coffee-ground emesis. No rectal bleeding, or melena. Reports black stool but has been taking Pepto-Bismol. Diarrhea for 3 weeks. GENITOURINARY: No dysuria or hematuria. Urinary retention. MUSCULOSKELETAL: Reports normal range of motion. SKIN: No rashes. No jaundice. ENDOCRINE: No chills, fevers. No excessive weight gain or loss. No polydipsia or polyuria. PSYCHIATRIC: Unremarkable. NEUROLOGY: Altered mental status changes with confusion. Denies dizziness, headache. ENT: Vision unremarkable. CONSTITUTIONAL: No recent weight loss. No fever, chills, night sweats. Past Medical History Past Medical History: Hyperlipidemia, Hypertension, Thyroid Disorder Additional Past Medical History / Comment(s): overactive bladder History of Any Multi-Drug Resistant Organisms: None Reported Past Surgical History: Orthopedic Surgery, Tubal Ligation Additional Past Surgical History / Comment(s): left shoulder replacement; elbow fracture with repair; hemmoroid surgery Past Psychological History: No Psychological Hx Reported Smoking Status: Never smoker Past Alcohol Use History: None Reported Past Drug Use History: None Reported Medications and Allergies Home Medications Medication Instructions Recorded Confirmed Type Simvastatin [Zocor] 80 mg PO HS 08/14/19 02/01/25 History hydroCHLOROthiazide 50 mg PO DAILY 08/14/19 02/01/25 History Apixaban [Eliquis] 5 mg PO BID #60 tab 08/16/19 02/01/25 Rx Verapamil Sr [Isoptin Sr] 120 mg PO DAILY #30 tablet.er 08/16/19 02/01/25 Rx Levothyroxine Sodium [Synthroid] 125 mcg PO DAILY 02/01/25 02/01/25 History Potassium Chloride ER [K-Dur 10] 10 meq PO DAILY 02/01/25 02/01/25 History Allergies Allergy/AdvReac Type Severity Reaction Status Date / Time No Known Allergies Allergy Verified 02/01/25 18:13 Physical Exam Vitals: Vital Signs Temp Pulse Resp BP Pulse Ox 02/02/25 05:03 121 H 18 128/68 96 02/02/25 02:25 97.7 F 117 H 20 132/71 95 02/01/25 23:03 108 H 20 131/74 98 02/01/25 23:02 97.9 F 02/01/25 22:26 111 H 22 132/82 98 02/01/25 20:00 89 24 119/90 02/01/25 18:38 84 22 94/47 95 02/01/25 16:06 98.6 F 80 18 119/76 94 L Intake and Output 02/01/25 02/01/25 02/02/25 14:59 22:59 06:59 Output Total 2300 Balance -2300 Output: Urine 2300 Straight 1150 Other: Weight 95.254 kg General appearance: The patient is alert, oriented to self, confused appears in no acute distress. HET: Head is normocephalic and atraumatic. Conjunctiva pink. Sclera anicteric. Neck: Supple without lymphadenopathy. Trachea midline. Heart: Regular. Lungs: Equal expansion, normal respiratory effort. Abdomen: Soft, nontender, nondistended. Skin: No rashes. No jaundice. Extremities: Normal skin color and turgor. No pedal edema. Neurological: Alert and oriented to self, confused. Results CBC & Chem 7: 02/01/25 16:23 02/01/25 22:02 Labs: Abnormal Lab Results - Last 24 Hours (Table) 02/01/25 02/01/25 02/01/25 Range/Units 16:23 16:23 17:12 WBC 12.98 H (4.50-10.00) 10*3/uL RBC 4.08 L (4.10-5.20) 10*6/uL Hct 36.9 L (37.2-46.3) % MCH 32.8 H (27.0-32.0) pg MPV 8.3 L (9.5-12.2) fL Immature Gran # 0.05 H (0.00-0.04) 10*3/uL Neutrophils # 11.02 H (1.80-7.70) 10*3/uL Lymphocytes # 0.81 L (0.90-5.00) 10*3/uL Sodium 124 L (137-145) mmol/L Potassium 3.0 L (3.5-5.1) mmol/L Chloride 86 L (98-107) mmol/L BUN 18 H (7-17) mg/dL Glucose 111 H (74-99) mg/dL Osmolality (275-295) mOsm/kg Magnesium 1.5 L (1.6-2.3) mg/dL Stool Occult Blood Positive H (Negative) 02/01/25 02/01/25 Range/Units 17:53 22:02 WBC (4.50-10.00) 10*3/uL RBC (4.10-5.20) 10*6/uL Hct (37.2-46.3) % MCH (27.0-32.0) pg MPV (9.5-12.2) fL Immature Gran # (0.00-0.04) 10*3/uL Neutrophils # (1.80-7.70) 10*3/uL Lymphocytes # (0.90-5.00) 10*3/uL Sodium 125 L (137-145) mmol/L Potassium (3.5-5.1) mmol/L Chloride (98-107) mmol/L BUN (7-17) mg/dL Glucose (74-99) mg/dL Osmolality 269 L (275-295) mOsm/kg Magnesium (1.6-2.3) mg/dL Stool Occult Blood (Negative) Assessment and Plan (1) Diarrhea Narrative/Plan: 80-year-old female with ongoing diarrhea for last 3 weeks duration with hyponatremia, hypokalemia and hypomagnesemia on admission along with confusion. No known history of colitis. Last colonoscopy several years ago. Patient's states diarrhea could be anywhere from hourly to several times a day most days. No new medications, no recent antibiotics according to . Reported black stool likely secondary to patient taking Pepto-Bismol at home i ch makes stool black. Normal hemoglobin. Collect stool for stool culture and C. difficile. Will order CT abdomen and pelvis for further evaluation. Will empirically start antibiotics with IV Flagyl secondary to diarrhea and leukocytosis. No plans on endoscopic evaluation. Current Visit: Yes Status: Acute Code(s): R19.7 - DIARRHEA, UNSPECIFIED SNOMED Code(s): 64112973 (2) Altered mental status Current Visit: Yes Status: Acute Code(s): R41.82 - ALTERED MENTAL STATUS, UNSPECIFIED SNOMED Code(s): 375254939 (3) Urinary retention Current Visit: Yes Status: Acute Code(s): R33.9 - RETENTION OF URINE, UNSPECIFIED SNOMED Code(s): 819049575 (4) Positive occult stool blood test Narrative/Plan: Patient reportedly has black stool however has been taking Pepto-Bismol. Hemoglobin is normal. Stool with positive occult blood insignificant. Could be secondary to hemorrhoid, chronic diarrhea, fissure. Current Visit: Yes Status: Acute Code(s): R19.5 - OTHER FECAL ABNORMALITIES SNOMED Code(s): 67979322 Plan: 1. Continue symptomatic and supportive care 2. Clear liquid diet then advance as tolerated 3. Collect stool C. difficile and stool culture 4. CT abdomen pelvis with contrast ordered 5. Start IV Flagyl for diarrhea and leukocytosis 6. Repeat CBC, CMP 7. Urinalysis ordered 8. Rest of medical management per primary medical team Thank you for allowing us to participate in the care of the patient, the GI service will sign off, gastroenterology will not be available at the hospital this weekend and through next week. If further evaluation by gastroenterology is required the patient will need transfer as per the primary team's discretion. Dr. Kelvin Schilling I agree with the dictator's note, documented as a scribe by Anyi Mendes.
[2025-02-02 11:13] LABS: % Iron Saturation 11.43 (12.00-45.00); BUN/Creat Ratio 16.71 Ratio (12.00-20.00); Blood Urea Nitrogen 11.7 mg/dL (9.0-27.0); Calcium 8.4 mg/dL (8.7-10.3); Carbon Dioxide 23.4 mmol/L (21.6-31.8); Chloride 91 mmol/L (96-109); Glucose 105 mg/dL (70-110); Iron 32 UG/DL (50-170); Potassium 3.1 mmol/L (3.5-5.5); Sodium 129 mmol/L (135-145); Total Iron Binding Capacity 280 UG/DL (228-460)
[2025-02-02 11:20] LABS: HCT 33.6 % (37.2-46.3); HGB 11.6 g/dL (12.0-15.0); MCHC 34.5 g/dL (32.0-37.0); MCV 92.6 FL (80.0-97.0); Mean Platelet Volume 8.8 FL (9.5-12.2); NRBC Per 100 WBC 0 X 10*3/uL (0.00-0.01); Platelet Count 357 X 10*3/uL (140-440); RBC 3.63 X 10*6/uL (4.10-5.20); WBC 13.61 X 10*3/uL (4.50-10.00)
--- NOTE | 2025-02-02 11:52 | P.PN ---
Subjective Progress Note Date: 02/02/25 Hospital Course: An 80-year-old female with medical history of HLD, HTN, hypothyroidism, who pr esented to the ER with ongoing diarrhea for the past 3 weeks, inability to ambulate. Patient reports having diarrhea and states that it is black in color. She reports having diarrhea for 3 weeks that have been black in color. During this time she had 12-16 bowel movements a day. Hasn't noticed bright red blood. She also mentions being on an anticoagulant for atrial fibrillation along with Verapamil. Associated with that she complains of weakness. She wasn't able to get up to go to the restroom. Weakness was the primary reason that prompted her to present to the ED. She also reports reduced appetite. Denies any recent diet changes. Denies being on any antibiotics recently. Additionally, she complains of bilateral hip and back pain which is limiting her movement that started today. Denies fever, chills, shortness of breath, cough, chest pain, palpitations, abdominal pain, nausea, vomiting, hematuria, dysuria, headache, slurred speech, numbness, tingling, blurred vision, double vision. ED documentation reviewed. In the ED patient was treated with magnesium sulfate 2 g, Protonix 40 mg IVP, 1.5L normal saline bolus, 0.9 at 130 mL/h. Vitals on admission T 98.6 F, CO 80, RR 18, BP 119/76, oxygen saturation 94% on room air EKG independently interpreted as atrial fibrillation, rate 100 bpm, QTc 489 ms Labs on admission show WBC 12.98, hemoglobin 13.4, platelet count 401, sodium 124, potassium 3.0, chloride 86, bicarb 29, BUN 18, creatinine 0.72, lactic acid 1.6, magnesium 1.5, total bilirubin 0.9, lipase 153 Stool occult blood is positive Patient admitted for further management of diarrhea, weakness, also severe lower back pain with positive straight leg test. CT lumbar spine ordered, GI consulted. 02/02 seen and examined at bedside in the ER, present during exam. Patient complains of lower back pain, she is a poor historian, she is not sure when it started, she is not sure if she had a bowel movement overnight, however states probably not. Her states that she had to spend a pro time in the recliner at home, was using bedside commode, could not walk, he is not sure why, thinks it could be psychological Apparently, patient was on bismuth that could contribute to stool color. C. difficile pending, GI ordered CT abdomen pelvis with contrast and started on IV Flagyl for diarrhea and leukocytosis, GI signed off R knee xray ordered due to acute pain, PTOT consulted, started on Iron for Iron deficiency. Pertinent positives and negatives as discussed above, a complete review of systems was performed and all other systems are negative. Vitals Signs Reviewed. General: [nontoxic], [no distress], [appears at stated age] chronically ill-appearing Derm: [warm], [dry] Head: [atraumatic], [normocephalic], [symmetric] Eyes: [EOMI], [no lid lag], [anicteric sclera] Mouth: [no lip lesion], [mucus membranes moist] Cardiovascular: [S1S2 reg], [no murmur] Lungs: [CTA bilateral], [no rhonchi, no rales] , [no accessory muscle use] Abdominal: [soft], [ nontender to palpation], [no guarding], [no appreciable organomegaly] Ext: [no gross muscle atrophy], [no edema], [no contractures], right knee decreased ROM, right hip tenderness Neuro: [ CN II-XI grossly intact], [no focal neuro deficits] Psych: [Alert], [oriented], [appropriate affect] Data Reviewed Today: Pertinent Labs: 13.6, hemoglobin 11.6, platelet count normal, sodium 129, potassium 3.1, creatinine 0.7, iron 32, ferritin 196, Assessment and Plan Acute diarrhea Reported black stool likely due to bismuth, although Hemoccult is positive Leukocytosis Continue Pantoprazole 40 mg PO BID Continue Ondansetron 4 mg IVP Q8HR PRN for nausea and vomiting Hold Eliquis Clear liquid diet Obtain C.diff, stool culture Monitor CBC Continue telemetry monitoring GI consulted, ordered CT abdomen with contrast, pending Started on Flagyl 500 3 times daily SOT 02/02 Iron deficiency anemia -Started on ferrous sulfate 325 daily Hyponatremia, secondary to GI solute loss due to diarrhea and poor solute intake Sodium 124 on admission, improved to 129 Received 1.5L bolus of normal saline in the ED Continue 0.9 normal saline at 130 ml/hr Obtain serum osmolality, urine osmolality, urine sodium Hold hydrochlorthiazide Monitor BMP Hypokalemia -Potassium replaced with 40 mEq oral, monitor BMP Hypomagnesemia Magnesium 1.5 on admission Received magnesium sulfate 2 g in the ED Monitor magnesium Acute back and hip pain Acute R knee pain -o bowel bladder dysfunction, no paresthesias Low risk for cord compression CT lumbar spine Lidocaine patch -Tylenol 650 every 6 hours as needed -R knee Xray -PTOT Chronic: Atrial fibrillation, controlled ventricular rate, on anticoagulation Hyperlipidemia Hypertension Hypothyroidism Continue Simvastatin 80 mg PO HS, Levothyroxine 125 mcg PO daily, Verapamil 120 mg PO daily DVT prophylaxis: SCD CODE STATUS: FULL CODE Discharge: 24-48 hours Objective - Vital Signs Vital signs: Vital Signs Temp 97.8 F 02/02/25 11:04 Pulse 117 H 02/02/25 11:04 Resp 20 02/02/25 11:04 BP 120/63 02/02/25 11:04 Pulse Ox 95 02/02/25 11:04 FiO2 Intake & Output 02/01/25 02/02/25 02/02/25 18:59 06:59 18:59 Output Total 2300 800 Balance -2300 -800 Weight 95.254 kg Output: Urine 2300 800 Straight 1150 500 - Labs CBC & Chem 7: 02/02/25 07:01 02/02/25 07:01 Labs: Abnormal Lab Results - Last 24 Hours (Table) 02/01/25 02/01/25 02/01/25 Range/Units 16:23 16:23 17:12 WBC 12.98 H (4.50-10.00) 10*3/uL RBC 4.08 L (4.10-5.20) 10*6/uL Hgb (12.0-15.0) g/dL Hct 36.9 L (37.2-46.3) % MCH 32.8 H (27.0-32.0) pg MPV 8.3 L (9.5-12.2) fL Immature Gran # 0.05 H (0.00-0.04) 10*3/uL Neutrophils # 11.02 H (1.80-7.70) 10*3/uL Lymphocytes # 0.81 L (0.90-5.00) 10*3/uL Sodium 124 L (137-145) mmol/L Potassium 3.0 L (3.5-5.1) mmol/L Chloride 86 L (98-107) mmol/L Anion Gap (4.00-12.00) mmol/L BUN 18 H (7-17) mg/dL Glucose 111 H (74-99) mg/dL Osmolality (275-295) mOsm/kg Calcium (8.7-10.3) mg/dL Magnesium 1.5 L (1.6-2.3) mg/dL Iron (50-170) UG/DL % Saturation (12.00-45.00) Transferrin (204.0-354.0) mg/dL Urine Ketones (Negative) Urine Blood (Negative) Urine Bacteria (None) /hpf Urine Mucus (None) /hpf Stool Occult Blood Positive H (Negative) 02/01/25 02/01/25 02/02/25 Range/Units 17:53 22:02 06:50 WBC (4.50-10.00) 10*3/uL RBC (4.10-5.20) 10*6/uL Hgb (12.0-15.0) g/dL Hct (37.2-46.3) % MCH (27.0-32.0) pg MPV (9.5-12.2) fL Immature Gran # (0.00-0.04) 10*3/uL Neutrophils # (1.80-7.70) 10*3/uL Lymphocytes # (0.90-5.00) 10*3/uL Sodium 125 L (137-145) mmol/L Potassium (3.5-5.1) mmol/L Chloride (98-107) mmol/L Anion Gap (4.00-12.00) mmol/L BUN (7-17) mg/dL Glucose (74-99) mg/dL Osmolality 269 L (275-295) mOsm/kg Calcium (8.7-10.3) mg/dL Magnesium (1.6-2.3) mg/dL Iron (50-170) UG/DL % Saturation (12.00-45.00) Transferrin (204.0-354.0) mg/dL Urine Ketones Trace H (Negative) Urine Blood Small H (Negative) Urine Bacteria Occasional H (None) /hpf Urine Mucus Rare H (None) /hpf Stool Occult Blood (Negative) 02/02/25 02/02/25 Range/Units 07:01 07:01 WBC 13.61 H (4.50-10.00) 10*3/uL RBC 3.63 L (4.10-5.20) 10*6/uL Hgb 11.6 L (12.0-15.0) g/dL Hct 33.6 L (37.2-46.3) % MCH (27.0-32.0) pg MPV 8.8 L (9.5-12.2) fL Immature Gran # (0.00-0.04) 10*3/uL Neutrophils # (1.80-7.70) 10*3/uL Lymphocytes # (0.90-5.00) 10*3/uL Sodium 129 L (137-145) mmol/L Potassium 3.1 L (3.5-5.1) mmol/L Chloride 91 L (98-107) mmol/L Anion Gap 14.60 H (4.00-12.00) mmol/L BUN (7-17) mg/dL Glucose (74-99) mg/dL Osmolality (275-295) mOsm/kg Calcium 8.4 L (8.7-10.3) mg/dL Magnesium (1.6-2.3) mg/dL Iron 32 L (50-170) UG/DL % Saturation 11.43 L (12.00-45.00) Transferrin 200.0 L (204.0-354.0) mg/dL Urine Ketones (Negative) Urine Blood (Negative) Urine Bacteria (None) /hpf Urine Mucus (None) /hpf Stool Occult Blood (Negative)
[2025-02-02] MEDS: FERROUS SULFATE 325 MG TAB PO SCH (11:56)
[2025-02-02] MEDS: POTASSIUM CHLORIDE ER 20 MEQ TAB.ER PO STA (11:57)
[2025-02-02 12:28] LABS: HGB 11.9 g/dL (12.0-15.0); MCH 32.9 pg (27.0-32.0); MCHC 36.1 g/dL (32.0-37.0); MCV 91.2 fL (80.0-97.0); Mean Platelet Volume 8.3 fL (9.5-12.2); Platelet Count 352 10*3/uL (140-440); RBC 3.62 10*6/uL (4.10-5.20); WBC 11.88 10*3/uL (4.50-10.00)
--- NOTE | 2025-02-02 12:31 | XR ---
EXAMINATION TYPE: XR knee complete RT DATE OF EXAM: 02/02/2025 12:21 PM COMPARISON: None. CLINICAL INDICATION: Female, 80 years old with history of R knee pain, pain TECHNIQUE: 3 view(s) obtained. FINDINGS: There is loss of medial compartment joint space. There is narrowing of the lateral compartment joint space. Medial tibial plateau and medial lateral femoral spurring is present no joint effusion is evid ent. Some soft tissue calcification is also noted. IMPRESSION: 1. Moderately advanced degenerative joint changes right knee [facility], , 02/02/2025 12:29 PM
--- NOTE | 2025-02-02 12:40 | CT ---
EXAMINATION TYPE: CT abdomen pelvis w con, CT lumbar spine wo/w con DATE OF EXAM: 02/02/2025 12:03 PM COMPARISON: None CLINICAL INDICATION: Female, 80 years old with history of Diarrhea, abdominal pain; Diarrhea, abdomin al pain (accession [id number]), Back pain (accession [id number]) TECHNIQUE: Axial CT abdomen pelvis w con, CT lumbar spine wo/w con;Sagittal and coronal reformats we re created on a separate workstation. CT axial imaging of the lumbar spines with sagittal coronal reformats created. Contrast used:100 mL of Isovue 300 with IV Contrast, (none if empty) Oral contrast used: with Oral Contrast (none if empty) CT DLP: 3058.5 mGycm, Automated exposure control for dose reduction was used. FINDINGS: LOWER CHEST: The heart is mildly enlarged for size. There is coronary artery calcifications and aorti c valve calcifications and mitral valve annular calcifications. ABDOMEN LIVER: Unremarkable GALLBLADDER AND BILE DUCTS: Gallstones in the gallbladder lumen. Dilation of the extrahepatic biliary system up to 20 mm. There is biliary wall prominence present. PANCREAS: There is a high-density lesion adjacent to the dilated common duct unclear etiology possibl y contrast and a duodenal diverticulum. SPLEEN: Unremarkable. ADRENAL GLANDS: Unremarkable. KIDNEYS AND URETERS: No evidence of hydronephrosis or obstructing renal calculus. The ureters are unr emarkable. Simple appearing right renal cortical cyst measuring up to 15 mm. No follow-up recommen ded. PELVIS BLADDER: Nondistended with Small catheter in place. REPRODUCTIVE: Unremarkable. ABDOMEN & PELVIS STOMACH AND BOWEL: No evidence of bowel obstruction. Large stool burden throughout the rectum measuri ng up to 6.6 cm in transverse dimension. There is redundant sigmoid colon PERITONEUM/RETROPERITONEUM: No evidence of pneumoperitoneum or free fluid. VASCULATURE: No evidence of aortic aneurysm. MUSCULOSKELETAL: No acute osseous abnormalities. Moderate disc degeneration changes are present throu ghout the thoracolumbar spine. Severe degeneration changes of the hips with deformity to the left baldemar tabulum and femoral head and osteophyte formation worse on the left. Mild scoliosis changes of the spine apex L2 on the left. Few scattered Schmorl's nodes osteophyte for mation and facet joint arthropathy throughout the spine noted. No evidence for fracture. Spinal canal is moderate to severely stenosed at L2-L3 secondary to disc bulge and facet joint arthropathy. Addit ionally there is moderate bilateral neural foraminal stenosis. No additional levels of high-grade eva nosis identified. LYMPH NODES: No gross evidence for lymphadenopathy. SOFT TISSUE/ABDOMINAL WALL: Unremarkable IMPRESSION: 1. Cholelithiasis with biliary dilation of the common bile duct up to 20 mm. Further evaluation with MRCP with IV contrast recommended to evaluate the biliary system. Bladder wall prominence also noted correlate for ascending infection. 2. High density calcification versus oral contrast within a duodenal diverticulum adjacent to the di lated biliary system. 3. Large stool burden in the rectum correlate for fecal stasis/constipation. 4. Small catheter in appropriate position. 5. Severe degeneration changes of the hips with deformity to the left femoral head and left acetabul um 6. Moderate degeneration changes of the spine. No evidence of spinal fracture. 7. Moderate to severe spinal process at L2-L3 secondary disc bulge and facet arthropathy. 8. Mild levoscoliosis of the spine. [place] L2. [facility], , 02/02/2025 12:37 PM
[2025-02-02 18:06] LABS: HCT 29.8 % (37.2-46.3); HGB 10.6 g/dL (12.0-15.0); MCH 32.6 pg (27.0-32.0); MCHC 35.6 g/dL (32.0-37.0); MCV 91.7 fL (80.0-97.0); Mean Platelet Volume 8.2 fL (9.5-12.2); Platelet Count 335 10*3/uL (140-440); RBC 3.25 10*6/uL (4.10-5.20); RDW 13.1 % (11.5-14.5); WBC 11.61 10*3/uL (4.50-10.00)
[2025-02-02] MEDS: ATORVASTATIN 40 MG TAB PO SCH (21:30)
[2025-02-03 00:12] LABS: HCT 30.1 % (37.2-46.3); MCH 33.1 pg (27.0-32.0); MCHC 36.5 g/dL (32.0-37.0); MCV 90.7 fL (80.0-97.0); Mean Platelet Volume 8.2 fL (9.5-12.2); Platelet Count 329 10*3/uL (140-440); RBC 3.32 10*6/uL (4.10-5.20); RDW 13.1 % (11.5-14.5); WBC 10.84 10*3/uL (4.50-10.00)
[2025-02-03 07:37] LABS: HCT 29.3 % (37.2-46.3); HGB 10.4 g/dL (12.0-15.0); MCH 32.7 pg (27.0-32.0); MCHC 35.5 g/dL (32.0-37.0); MCV 92.1 fL (80.0-97.0); Mean Platelet Volume 8.2 fL (9.5-12.2); Platelet Count 304 10*3/uL (140-440); RBC 3.18 10*6/uL (4.10-5.20); RDW 13.1 % (11.5-14.5); WBC 9.48 10*3/uL (4.50-10.00)
[2025-02-03 08:20] LABS: African American GFR (CKD) >90 (>60 ml/min/1.73 sqM); Anion Gap 5 mmol/L; Blood Urea Nitrogen 8 mg/dL (7-17); Calcium 7.8 mg/dL (8.4-10.2); Carbon Dioxide 26 mmol/L (22-30); Chloride 94 mmol/L (98-107); Glucose 100 mg/dL (74-99); Non-African American GFR(CKD) 85 (>60 ml/min/1.73 sqM); Potassium 3.1 mmol/L (3.5-5.1); Sodium 125 mmol/L (137-145)
[2025-02-03] MEDS ORDERED: Potassium Replacement Protocol 1 EACH MISC MISCELLANE PRN (08:25)
--- NOTE | 2025-02-03 08:48 | XR ---
EXAMINATION TYPE: XR chest 1V portable DATE OF EXAM: 02/03/2025 8:41 AM COMPARISON: 08/14/2019 CLINICAL INDICATION: Female, 80 years old with history of hypoxia, TECHNIQUE: XR chest 1V portable view(s) obtained. FINDINGS: The heart size is mildly prominent. The pulmonary vasculature is normal. There is elevation of the right diaphragm. No suspicious infiltrates evident. There is no left shoulder prosthesis. Degenerative changes are at the right shoulder. IMPRESSION: 1. No acute pulmonary process. 2. Mild cardiomegaly [facility], , 02/03/2025 8:46 AM
[2025-02-03] MEDS: POTASSIUM CHLORIDE 10 MEQ in WATER FOR INJECTION 1 100ML.BAG IVPB SCH (10:10)
--- NOTE | 2025-02-03 13:20 | P.PN ---
Subjective Progress Note Date: 02/03/25 Hospital Course: An 80-year-old female with medical history of HLD, HTN, hypothyroidism, who pr esented to the ER with ongoing diarrhea for the past 3 weeks, inability to ambulate. Patient reports having diarrhea and states that it is black in color. She reports having diarrhea for 3 weeks that have been black in color. During this time she had 12-16 bowel movements a day. Hasn't noticed bright red blood. She also mentions being on an anticoagulant for atrial fibrillation along with Verapamil. Associated with that she complains of weakness. She wasn't able to get up to go to the restroom. Weakness was the primary reason that prompted her to present to the ED. She also reports reduced appetite. Denies any recent diet changes. Denies being on any antibiotics recently. Additionally, she complains of bilateral hip and back pain which is limiting her movement that started today. Denies fever, chills, shortness of breath, cough, chest pain, palpitations, abdominal pain, nausea, vomiting, hematuria, dysuria, headache, slurred speech, numbness, tingling, blurred vision, double vision. ED documentation reviewed. In the ED patient was treated with magnesium sulfate 2 g, Protonix 40 mg IVP, 1.5L normal saline bolus, 0.9 at 130 mL/h. Vitals on admission T 98.6 F, SD 80, RR 18, BP 119/76, oxygen saturation 94% on room air EKG independently interpreted as atrial fibrillation, rate 100 bpm, QTc 489 ms Labs on admission show WBC 12.98, hemoglobin 13.4, platelet count 401, sodium 124, potassium 3.0, chloride 86, bicarb 29, BUN 18, creatinine 0.72, lactic acid 1.6, magnesium 1.5, total bilirubin 0.9, lipase 153 Stool occult blood is positive Patient admitted for further management of diarrhea, weakness, also severe lower back pain with positive straight leg test. CT lumbar spine ordered, GI consulted. 02/02 seen and examined at bedside in the ER, present during exam. Patient complains of lower back pain, she is a poor historian, she is not sure when it started, she is not sure if she had a bowel movement overnight, however states probably not. Her states that she had to spend a pro time in the recliner at home, was using bedside commode, could not walk, he is not sure why, thinks it could be psychological Apparently, patient was on bismuth that could contribute to stool color. C. difficile pending, GI ordered CT abdomen pelvis with contrast and started on IV Flagyl for diarrhea and leukocytosis, GI signed off R knee xray ordered due to acute pain, PTOT consulted, started on Iron for Iron deficiency. Knee x-ray revealed moderate DJD. CT abdomen showed cholelithiasis with biliary dilation of the CBD up to 20 mm, MRCP ordered. Also high density calcifications versus oral contrast within duodenal diverticulum noted, large stool burden in the rectum, severe degeneration changes of the hips with deformity to the left femoral head and left acetabulum, moderate degeneration changes of the spine, no fracture, moderate to severe spinal process at L2-L3 secondary to disc bulge and facet arthropathy, orthopedic surgery consulted 02/03, patient heart rate controlled, on Cardizem drip stopped, resumed on home verapamil. Patient was noted to be sundowning, family educated on hospital- acquired delirium prevention. Chest x-ray showed no acute process, personally Patient complained of ongoing back pain, otherwise no complaints Pertinent positives and negatives as discussed above, a complete review of systems was performed and all other systems are negative. Vitals Signs Reviewed. General: [nontoxic], [no distress], [appears at stated age] chronically ill- appearing Derm: [warm], [dry] Head: [atraumatic], [normocephalic], [symmetric] Eyes: [EOMI], [no lid lag], [anicteric sclera] Mouth: [no lip lesion], [mucus membranes moist] Cardiovascular: [S1S2 reg], [no murmur] Lungs: [CTA bilateral], [no rhonchi, no rales] , [no accessory muscle use] Abdominal: [soft], [ nontender to palpation], [no guarding], [no appreciable organomegaly] Ext: [no gross muscle atrophy], [no edema], [no contractures], right knee decreased ROM, right hip tenderness Neuro: [ CN II-XI grossly intact], [no focal neuro deficits] Psych: [Alert], [oriented], [appropriate affect] Data Reviewed Today: Pertinent Labs: WBC count normal, hemoglobin stable 10.4, platelet count normal, sodium 125, potassium 3.1, normal creatinine, glucose 100 Assessment and Plan CBD dilation Acute diarrhea, resolved Reported black stool likely due to bismuth, although Hemoccult is positive Leukocytosis Continue Pantoprazole 40 mg PO BID Continue Ondansetron 4 mg IVP Q8HR PRN for nausea and vomiting Hold Eliquis Clear liquid diet Obtain C.diff, stool culture Monitor CBC Continue telemetry monitoring GI consulted, ordered CT abdomen with contrast, Started on Flagyl 500 3 times daily SOT 02/02 MRCP ordered and pending, patient does not have any abdominal symptoms at this time, CMP on admission showed no liver enzymes abnormalities, repeat CMP ordered Iron deficiency anemia -Started on ferrous sulfate 325 daily Hyponatremia, secondary to GI solute loss due to diarrhea and poor solute intake Sodium 124 on admission, improved to 129 and now back to 125 Received 1.5L bolus of normal saline in the ED Continue 0.9 normal saline at 130 ml/hr Hold hydrochlorthiazide Monitor BMP Hypokalemia -Potassium replaced with 40 mEq oral, monitor BMP Hypomagnesemia Magnesium 1.5 on admission Received magnesium sulfate 2 g in the ED Monitor magnesium Acute back and hip pain Acute R knee pain severe degeneration changes of the hips with deformity to the left femoral head and left acetabulum moderate degeneration changes of the spine moderate to severe spinal process at L2-L3 secondary to disc bulge and facet arthropathy orthopedic surgery consulted -o bowel bladder dysfunction, no paresthesias Low risk for cord compression Lidocaine patch -Tylenol 650 every 6 hours as needed -PTOT Hospital-acquired delirium -Family educated on delirium prevention measures Chronic: Atrial fibrillation, controlled ventricular rate, on anticoagulation Hyperlipidemia Hypertension Hypothyroidism Continue Simvastatin 80 mg PO HS, Levothyroxine 125 mcg PO daily, Verapamil 120 mg PO daily DVT prophylaxis: SCD CODE STATUS: FULL CODE Discharge: tbd Objective - Vital Signs Vital signs: Vital Signs Temp 97.6 F 02/03/25 08:15 Pulse 95 02/03/25 08:15 Resp 16 02/03/25 08:15 BP 106/61 02/03/25 08:15 Pulse Ox 96 02/03/25 08:15 FiO2 Intake & Output 02/02/25 02/03/25 02/03/25 18:59 06:59 18:59 Intake Total 101.833 Output Total 800 700 525 Balance -800 -598.167 -525 Weight 95.254 kg Intake: Intake, IV Titration 101.833 Amount Diltiazem 125 mg In 101.833 Sodium Chloride 0.9% 100 ml @ 5 MG/HR 5 mls/hr IV .Q24H [facility] Rx#:[id number] Output: Urine 800 700 525 Straight 500 Other: Voiding Method Indwelling Catheter Indwelling Catheter # Bowel Movements 1 - Labs CBC & Chem 7: 02/03/25 06:38 02/03/25 06:38 Labs: Abnormal Lab Results - Last 24 Hours (Table) 02/02/25 02/03/25 02/03/25 Range/Units 17:32 00:03 06:38 WBC 11.61 H 10.84 H (4.50-10.00) 10*3/uL RBC 3.25 L 3.32 L 3.18 L (4.10-5.20) 10*6/uL Hgb 10.6 L 11.0 L 10.4 L (12.0-15.0) g/dL Hct 29.8 L 30.1 L 29.3 L (37.2-46.3) % MCH 32.6 H 33.1 H 32.7 H (27.0-32.0) pg MPV 8.2 L 8.2 L 8.2 L (9.5-12.2) fL Sodium (137-145) mmol/L Potassium (3.5-5.1) mmol/L Chloride (98-107) mmol/L Glucose (74-99) mg/dL Calcium (8.4-10.2) mg/dL 02/03/25 Range/Units 06:38 WBC (4.50-10.00) 10*3/uL RBC (4.10-5.20) 10*6/uL Hgb (12.0-15.0) g/dL Hct (37.2-46.3) % MCH (27.0-32.0) pg MPV (9.5-12.2) fL Sodium 125 L (137-145) mmol/L Potassium 3.1 L (3.5-5.1) mmol/L Chloride 94 L (98-107) mmol/L Glucose 100 H (74-99) mg/dL Calcium 7.8 L (8.4-10.2) mg/dL
--- NOTE | 2025-02-03 14:23 | MR ---
EXAMINATION TYPE: MR MRCP DATE OF EXAM: 02/03/2025 12:54 PM COMPARISON: CT abdomen/pelvis 02/02/2025. CLINICAL INDICATION: Female, 80 years old with history of Abdominal pain, possible stone bile duct; P HH, TECHNIQUE: Multi planar, T2-weighted imaging with and without fat saturation and chemical shift imag ing was performed of the abdomen. Then, heavily T2 weighted imaging (half-Fourier acquisition single- shot turbo spin-echo) was utilized in order to study the biliary system. Maximum intensity projectio n images were reconstructed from the original data of the biliary tree. 3D images were created on [employer] work station. No Gadolinium given. FINDINGS: Study limited due to lack of IV contrast. Lower Thorax: No evidence for acute process. MRCP: There is markedly dilated intrahepatic bile ducts and CBD with CBD measuring up to 18 mm in greatest diameter. There is abrupt cut off and low T2 intense filling defect near the ampulla/distal CBD (28-7 0). Cannot evaluate for enhancement given lack of IV contrast. Additionally, there is cholelithiasis and gallbladder wall thickening/edema with mild adjacent pericholecystic fluid. Abdomen: Liver: No evidence for hepatic steatosis or cirrhosis. Pancreas: Pancreatic duct measures 3 mm in diameter, which is within normal limits. Spleen: Normal for size. Adrenal glands: Unremarkable. Kidneys: No evidence for obstructive uropathy. No suspicious renal masses. Cystic lesion in the right kidney measuring up to 10 mm. Stomach and Bowel: No evidence for bowel wall thickening or evidence for obstruction. Retroperitoneum/Peritoneum: No evidence of pneumoperitoneum or free fluid. Vasculature: Calcified metastatic disease without aneurysmal dilatation. Musculoskeletal: No acute osseous abnormality. Lymph Nodes: No gross evidence for lymphadenopathy. Abdominal wall: Unremarkable. IMPRESSION: 1. Low intensity T2 signal filling defect within the distal CBD near the ampulla with marked upstrea m CBD and intrahepatic bile duct dilatation measuring up to 18 mm in diameter. Limited evaluation giv en lack of IV contrast. However, findings are felt to most likely reflect sequelae of obstructing cho ledocholithiasis. However, malignancy would be difficult to exclude an ERCP would be recommended for further evaluation if clinically warranted. 2. Cholelithiasis, gallbladder wall thickening/edema and mild pericholecystic fluid suggestive of ac homa cholecystitis in the appropriate critical setting. Consider nuclear medicine HIDA for more defini tive evaluation if clinically warranted. [facility], , 02/03/2025 2:21 PM
[2025-02-03 14:54] LABS: African American GFR (CKD) >90 (>60 ml/min/1.73 sqM); Anion Gap 8 mmol/L; Blood Urea Nitrogen 7 mg/dL (7-17); Calcium 8.1 mg/dL (8.4-10.2); Carbon Dioxide 26 mmol/L (22-30); Chloride 93 mmol/L (98-107); Glucose 120 mg/dL (74-99); Non-African American GFR(CKD) 86 (>60 ml/min/1.73 sqM); Potassium 3.5 mmol/L (3.5-5.1); Sodium 127 mmol/L (137-145)
[2025-02-04 07:27] LABS: HCT 30.8 % (37.2-46.3); HGB 10.5 g/dL (12.0-15.0); MCH 31.7 pg (27.0-32.0); MCHC 34.1 g/dL (32.0-37.0); MCV 93.1 fL (80.0-97.0); Mean Platelet Volume 8.2 fL (9.5-12.2); Platelet Count 320 10*3/uL (140-440); RBC 3.31 10*6/uL (4.10-5.20); RDW 13.2 % (11.5-14.5); WBC 9.73 10*3/uL (4.50-10.00)
[2025-02-04 07:49] LABS: ALT 16 U/L (4-34); AST 29 U/L (14-36); African American GFR (CKD) >90 (>60 ml/min/1.73 sqM); Albumin 2.8 g/dL (3.5-5.0); Alkaline Phosphatase 49 U/L (38-126); Anion Gap 5 mmol/L; Blood Urea Nitrogen 6 mg/dL (7-17); Calcium 7.9 mg/dL (8.4-10.2); Carbon Dioxide 24 mmol/L (22-30); Chloride 99 mmol/L (98-107); Glucose 102 mg/dL (74-99); Non-African American GFR(CKD) 88 (>60 ml/min/1.73 sqM); Potassium 3.4 mmol/L (3.5-5.1); Sodium 128 mmol/L (137-145); Total Bilirubin 0.7 mg/dL (0.2-1.3); Total Protein 5.4 g/dL (6.3-8.2)
--- NOTE | 2025-02-04 10:26 | P.PN ---
Subjective Progress Note Date: 02/04/25 Hospital Course: An 80-year-old female with medical history of HLD, HTN, hypothyroidism, who pr esented to the ER with ongoing diarrhea for the past 3 weeks, inability to ambulate. Patient reports having diarrhea and states that it is black in color. She reports having diarrhea for 3 weeks that have been black in color. During this time she had 12-16 bowel movements a day. Hasn't noticed bright red blood. She also mentions being on an anticoagulant for atrial fibrillation along with Verapamil. Associated with that she complains of weakness. She wasn't able to get up to go to the restroom. Weakness was the primary reason that prompted her to present to the ED. She also reports reduced appetite. Denies any recent diet changes. Denies being on any antibiotics recently. Additionally, she complains of bilateral hip and back pain which is limiting her movement that started today. Denies fever, chills, shortness of breath, cough, chest pain, palpitations, abdominal pain, nausea, vomiting, hematuria, dysuria, headache, slurred speech, numbness, tingling, blurred vision, double vision. ED documentation reviewed. In the ED patient was treated with magnesium sulfate 2 g, Protonix 40 mg IVP, 1.5L normal saline bolus, 0.9 at 130 mL/h. Vitals on admission T 98.6 F, CA 80, RR 18, BP 119/76, oxygen saturation 94% on room air EKG independently interpreted as atrial fibrillation, rate 100 bpm, QTc 489 ms Labs on admission show WBC 12.98, hemoglobin 13.4, platelet count 401, sodium 124, potassium 3.0, chloride 86, bicarb 29, BUN 18, creatinine 0.72, lactic acid 1.6, magnesium 1.5, total bilirubin 0.9, lipase 153 Stool occult blood is positive Patient admitted for further management of diarrhea, weakness, also severe lower back pain with positive straight leg test. CT lumbar spine ordered, GI consulted. 02/02 seen and examined at bedside in the ER, present during exam. Patient complains of lower back pain, she is a poor historian, she is not sure when it started, she is not sure if she had a bowel movement overnight, however states probably not. Her states that she had to spend a pro time in the recliner at home, was using bedside commode, could not walk, he is not sure why, thinks it could be psychological Apparently, patient was on bismuth that could contribute to stool color. C. difficile pending, GI ordered CT abdomen pelvis with contrast and started on IV Flagyl for diarrhea and leukocytosis, GI signed off R knee xray ordered due to acute pain, PTOT consulted, started on Iron for Iron deficiency. Knee x-ray revealed moderate DJD. CT abdomen showed cholelithiasis with biliary dilation of the CBD up to 20 mm, MRCP ordered. Also high density calcifications versus oral contrast within duodenal diverticulum noted, large stool burden in the rectum, severe degeneration changes of the hips with deformity to the left femoral head and left acetabulum, moderate degeneration changes of the spine, no fracture, moderate to severe spinal process at L2-L3 secondary to disc bulge and facet arthropathy, orthopedic surgery consulted-not available over the weekend, reconsult in AM 02/03, patient heart rate controlled, Cardizem drip stopped, resumed on home verapamil. Patient was noted to be sundowning, family educated on hospital- acquired delirium prevention. Chest x-ray showed no acute process 02/04: MRCP showed CBD dilation up to 18 mm, findings felt to most likely reflect sequelae of obstructing choledocholithiasis, malignancy difficult to exclude, cholelithiasis, gallbladder wall thickening and edema with mild pericholecystic fluid suggestive of acute cholecystitis. Contacted [facility] for possible transfer for ERCP, discussed with GI, given patient has no abdominal pain, no abnormalities on liver function, GI recommended outpatient follow-up and endoscopic ultrasound, no need for transfer as ERCP will not be offered. [facility] surgery consulted. Patient is afebrile, heart rate in 90s, blood pressure stable, no leukocytosis, sodium improved Patient complained of feeling tired, stay in the hospital, denied abdominal pain Pertinent positives and negatives as discussed above, a complete review of systems was performed and all other systems are negative. Vitals Signs Reviewed. General: [nontoxic], [no distress], [appears at stated age] chronically ill- appearing Derm: [warm], [dry] Head: [atraumatic], [normocephalic], [symmetric] Eyes: [EOMI], [no lid lag], [anicteric sclera] Mouth: [no lip lesion], [mucus membranes moist] Cardiovascular: [S1S2 reg], [no murmur] Lungs: [CTA bilateral], [no rhonchi, no rales] , [no accessory muscle use] Abdominal: [soft], [ nontender to palpation], [no guarding], [no appreciable organomegaly] Ext: [no gross muscle atrophy], [no edema], [no contractures], right knee decrea sed ROM, right hip tenderness Neuro: [ CN II-XI grossly intact], [no focal neuro deficits] Psych: [Alert], [oriented], [cooperative Data Reviewed Today: Pertinent Labs: WBC count normal, hemoglobin stable 10.5 platelet count normal, sodium 128 potassium 3.4 normal creatinine, glucose 102 Assessment and Plan CBD dilation Acute diarrhea, resolved Reported black stool likely due to bismuth, although Hemoccult is positive Leukocytosis Continue Pantoprazole 40 mg PO BID Continue Ondansetron 4 mg IVP Q8HR PRN for nausea and vomiting Hold Eliquis Advance to regular diet Obtain C.diff, stool culture Monitor CBC Continue telemetry monitoring GI consulted, ordered CT abdomen with contrast, Started on Flagyl 500 3 times daily SOT 02/02 MRCP showed CBD dilation up to 18 mm, findings felt to most likely reflect sequelae of obstructing choledocholithiasis, malignancy difficult to exclude, cholelithiasis, gallbladder wall thickening and edema with mild pericholecystic fluid suggestive of acute cholecystitis. Contacted [facility] for possible transfer for ERCP, discussed with GI, given patient has no abdominal pain, no abnormalities on liver function, GI recommended outpatient follow-up and endoscopic ultrasound, no need for transfer as ERCP will not be offered General surgery consulted Iron deficiency anemia -Started on ferrous sulfate 325 daily Hyponatremia, secondary to GI solute loss due to diarrhea and poor solute intake Sodium 124 on admission, improved to 128 Continue 0.9 normal saline at 130 ml/hr Hold hydrochlorthiazide Monitor BMP Hypokalemia -Potassium replaced with 40 mEq oral, monitor BMP Hypomagnesemia Magnesium 1.5 on admission Received magnesium sulfate 2 g in the ED Monitor magnesium Acute back and hip pain Acute R knee pain severe degeneration changes of the hips with deformity to the left femoral head and left acetabulum moderate degeneration changes of the spine moderate to severe spinal process at L2-L3 secondary to disc bulge and facet arthropathy orthopedic surgery consulted-not available over the weekend, reconsult in AM -o bowel bladder dysfunction, no paresthesias Low risk for cord compression Lidocaine patch -Tylenol 650 every 6 hours as needed -PTOT Hospital-acquired delirium -Family educated on delirium prevention measures Chronic: Atrial fibrillation, controlled ventricular rate, on anticoagulation Hyperlipidemia Hypertension Hypothyroidism Continue Simvastatin 80 mg PO HS, Levothyroxine 125 mcg PO daily, Verapamil 120 mg PO daily DVT prophylaxis: SCD CODE STATUS: FULL CODE Discharge: tbd Objective - Vital Signs Vital signs: Vital Signs Temp 97.4 F L 02/04/25 09:05 Pulse 109 H 02/04/25 09:53 Resp 16 02/04/25 09:53 BP 108/67 02/04/25 09:05 Pulse Ox 95 02/04/25 09:05 FiO2 Intake & Output 02/03/25 02/04/25 02/04/25 18:59 06:59 18:59 Intake Total 2030 Output Total 650 600 Balance 1380 -600 Intake: IV 2030 Potassium Chloride 10 meq 400 In Water For Injection 1 100ml.bag @ 100 mls/hr IVPB Q1HR [facility] Rx#: [id number] Sodium Chloride 0.9% 1, 1430 000 ml @ 130 mls/hr IV . Q7H42M [facility] Rx#:[id number]-NS PMX 500 200 mg In Saline 1 100ml.bag @ 100 mls/hr IVPB Q8HR [facility] Rx#:[id number] Output: Urine 650 600 Other: Voiding Method Indwelling Catheter Indwelling Catheter Indwelling Catheter # Bowel Movements 1 - Labs CBC & Chem 7: 02/04/25 06:56 02/04/25 06:56 Labs: Abnormal Lab Results - Last 24 Hours (Table) 02/03/25 02/04/25 02/04/25 Range/Units 14:19 06:56 06:56 RBC 3.31 L (4.10-5.20) 10*6/uL Hgb 10.5 L (12.0-15.0) g/dL Hct 30.8 L (37.2-46.3) % MPV 8.2 L (9.5-12.2) fL Sodium 127 L 128 L (137-145) mmol/L Potassium 3.4 L (3.5-5.1) mmol/L Chloride 93 L (98-107) mmol/L BUN 6 L (7-17) mg/dL Glucose 120 H 102 H (74-99) mg/dL Calcium 8.1 L 7.9 L (8.4-10.2) mg/dL Total Protein 5.4 L (6.3-8.2) g/dL Albumin 2.8 L (3.5-5.0) g/dL
[2025-02-04] MEDS: POTASSIUM CHLORIDE ER 20 MEQ TAB.ER PO STA (11:58)
[2025-02-04] MEDS: POTASSIUM CHLORIDE 10 MEQ in WATER FOR INJECTION 1 100ML.BAG IVPB SCH (14:14)
[2025-02-04] MEDS: ZINC OXIDE PASTE (Z-GUARD) 1 APPLIC TOPICAL PRN (18:15)
[2025-02-04] MEDS: ACETAMINOPHEN TAB 325 MG TAB PO PRN (20:31)
--- NOTE | 2025-02-05 06:15 | P.PN ---
Subjective Progress Note Date: 02/05/25 80 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 In the ED she underwent extensive evaluation. T 98.6 F, IN 80, RR 18, BP 119/76, 94% on room air. EKG showed atrial fibrillation, rate 100 bpm, QTc 489 ms. CBC, CMP significant for WBC 12.98, RBC 4.08, HC 36.9, Na 125, K 3, Cl 86, BUN 18, glu 111. Mag 1.5. Lactic acid 1.6. Lipase 153. Procal 0.14. TSH 4.21. Iron studies Fe 32, % sat 11.43, Ferritin 196. UA neg LE or nitrite. Stool occult +. Serum Osm 267. Urine Osm 440. Dejan 64. C. diff neg. GI consulted, recommended IV Flagyl and CT AP which revealed cholelithiasis with biliary dilation of the CBD 20 mm, large stool burden, severe DJD bilateral hips, mod-severe spinal process at L2- 3. MRCP was obtained showing CBD dilation up to 18 mm, findings felt to most likely reflect sequelae of obstructing choledocholithiasis, malignancy difficult to exclude along with cholelithiasis, gallbladder wall thickening and edema with mild pericholecystic fluid suggestive of acute cholecystitis. Attempted to [place] sfer to [facility] for GI evaluation, GI recommended outpatient follow-up and endoscopic ultrasound. 02/05 Patient was seen and examined. 3 bowel movements over the past 24H. Reports no abdominal pain. Went into A-Fib RVR on telemetry overnight. Maintained on Flagyl 500 mg IV TID. General: toxic, no distress, appears older than stated age Derm: warm, dry Head: atraumatic, normocephalic, symmetric Mouth: no lip lesion, mucus membranes moist Cardiovascular: S1S2 irreg, no murmur Lungs: Decreased BS bilaterally, no rales , no accessory muscle use Abd: Soft. Non tender to palpation. Ext: no gross muscle atrophy, no edema, no contractures Neuro: No focal neurologic deficits. Psych: Alert and oriented. Based on my assessment of this patient, this patient meets a high complexity level of care. Diarrhea: Unknown etiology. C. diff neg. No history of antibiotic use. Stop Flagul and start Zosyn 3.75g IV TID. Follow stool Cx. Ideally would need C-scope in the near future. Atrial fibrillation with RVR: Verapamil 120 mg PO BID. Eliquis on hold due to + stool occult. Maintain K > 4 and Mg > 2. Telemetry monitoring. Obtain Echo. Cardiology consulted. Sepsis with concerns for cholecystitis: Leukocytosis and tachycardia. MRCP concerning for cholecystitis. Continue Zosyn as above. Obtain BCx. Surgery consulted. Generalized weakness and Debility: Multifactorial. Electrolyte derangement. Severe DJD, severe spinal process at L2-3. Fall precautions. PT and OT consult. Stool occult +: Hold Eliquis. Hg stable. Transfuse if Hg < 7. Repeat CBC pending. Hyponatremia: Improving with IV hydration. Repeat BMP pending. Hypokalemia: Replace via protocol. Obtain Mag. Repeat BMP pending. CODE STATUS: FULL CODE. DVT Prophylaxis: SCD GI Prophylaxis: Protonix IV BID. Designated medical POA if patient is not able to make medical decisions for themselves: I have reviewed the following field consultant notes: I have reviewed the results of the following tests: I have ordered the following tests: CBC, BMP, Mag, BCx, Echo. I have discussed the care of this patient with the following independent h istorian: RN. I have independently interpreted the following test below: I have discussed the management of this patient with the following physician: Objective - Vital Signs Vital signs: Vital Signs Temp 97.5 F L 02/04/25 20:30 Pulse 126 H 02/05/25 02:59 Resp 32 H 02/05/25 02:59 BP 146/71 02/05/25 02:57 Pulse Ox 96 02/05/25 02:57 FiO2 Intake & Output 02/04/25 02/04/25 02/05/25 06:59 18:59 06:59 Output Total 600 450 Balance -600 -450 Output: Urine 600 450 Other: Voiding Method Indwelling Catheter Indwelling Catheter Indwelling Catheter # Bowel Movements 1 - Labs CBC & Chem 7: 02/04/25 06:56 02/04/25 06:56 Labs: Abnormal Lab Results - Last 24 Hours (Table) 02/04/25 02/04/25 Range/Units 06:56 06:56 RBC 3.31 L (4.10-5.20) 10*6/uL Hgb 10.5 L (12.0-15.0) g/dL Hct 30.8 L (37.2-46.3) % MPV 8.2 L (9.5-12.2) fL Sodium 128 L (137-145) mmol/L Potassium 3.4 L (3.5-5.1) mmol/L BUN 6 L (7-17) mg/dL Glucose 102 H (74-99) mg/dL Calcium 7.9 L (8.4-10.2) mg/dL Total Protein 5.4 L (6.3-8.2) g/dL Albumin 2.8 L (3.5-5.0) g/dL
[2025-02-05 06:39] LABS: HCT 32.5 % (37.2-46.3); HGB 11.1 g/dL (12.0-15.0); MCH 32.2 pg (27.0-32.0); MCHC 34.2 g/dL (32.0-37.0); MCV 94.2 fL (80.0-97.0); Mean Platelet Volume 8.2 fL (9.5-12.2); Platelet Count 345 10*3/uL (140-440); RBC 3.45 10*6/uL (4.10-5.20); RDW 13.4 % (11.5-14.5); WBC 10.25 10*3/uL (4.50-10.00)
[2025-02-05 07:10] LABS: African American GFR (CKD) >90 (>60 ml/min/1.73 sqM); Anion Gap 5 mmol/L; Blood Urea Nitrogen 6 mg/dL (7-17); Calcium 7.8 mg/dL (8.4-10.2); Carbon Dioxide 22 mmol/L (22-30); Chloride 101 mmol/L (98-107); Glucose 103 mg/dL (74-99); Magnesium 1.6 mg/dL (1.6-2.3); Non-African American GFR(CKD) >90 (>60 ml/min/1.73 sqM); Potassium 3.9 mmol/L (3.5-5.1); Sodium 128 mmol/L (137-145)
[2025-02-05] MEDS: PIPERACILLIN-TAZOBACTAM 3.375 GM in SODIUM CHLORIDE 0.9% 100 ML IVPB SCH (08:32)
[2025-02-05] MEDS: VERAPAMIL SR 240 MG TABLET.ER PO SCH (08:42)
--- NOTE | 2025-02-05 09:02 | P.CRDCN ---
History of Present Illness History of present illness: HISTORY OF PRESENT ILLNESS: This is a 80-year-old female with a past medical history significant for atrial fibrillation, hypertension, hyperlipidemia, and hypothyroidism. Patient used to follow in the office with Dr. Carrasco but has not been seen since 2019. We have been asked to see the patient in consultation for atrial fibrillation. Patient examined at the bedside. Patient's is present. Patient presented to the hospital with a chief complaint of diarrhea. She states she has been having diarrhea for 3 weeks. She denied having any abdominal pain. She reports she browning s been taking Pepto-Bismol at home to help with the diarrhea. She reports having black stools as well. However she states she has been having black stools prior to taking Pepto-Bismol. She reports decreased appetite and states that she was not able to eat much this morning but did drink some juice. She feels mildly short of breath this morning. She denies any chest pain or pressure. Telemetry this morning reveals atrial fibrillation with a heart rate around 120. Patient denies any palpitations, dizziness, or lightheadedness. DIAGNOSTICS: - EKG reveals A-fib with RVR. - Laboratory data: WBC 10.25. Hemoglobin 11.1. Platelet count 345. Sodium 128. Potassium 3.9. BUN 6. Creatinine 0.47. Procalcitonin 0.14. TSH 4.210. Stool for occult blood is positive. - Current home cardiac medications include verapamil 120 mg daily, hydrochlorothiazide 50 mg daily, simvastatin 80 mg at night, Eliquis 5 mg twice a day - Most recent echocardiogram obtained in 2019 revealing hyperdynamic EF greater than 70%, mild aortic regurgitation, trace to mild mitral regurgitation, mild tricuspid regurgitation - Cardiac catheterization history: Unknown REVIEW OF SYSTEMS: At the time of my exam: CONSTITUTIONAL: Denies fever or chills. HEENT: Denies blurred vision, vision changes, or eye pain. Denies hemoptysis CARDIOVASCULAR: Denies chest pain. Denies orthopnea. Denies PND. Denies palpitations RESPIRATORY: Denies shortness of breath. GASTROINTESTINAL: Denies abdominal pain. Denies nausea or vomiting. HEMATOLOGIC: Denies bleeding disorders. GENITOURINARY: Denies any blood in urine. SKIN: Denies pruitis. Denies rash. PHYSICAL EXAM: VITAL SIGNS: Reviewed. GENERAL: Well-developed in no acute distress. HEENT: Head is normocephalic. Pupils are equal, round. Sclerae anicteric. Mucous membranes of the mouth are moist. Neck supple. No JVD or thyromegaly LUNGS: Respirations even and unlabored. Lungs essentially clear to auscultation bilaterally. HEART: Tachycardic. Irregular rate and rhythm. S1 and S2 heard. ABDOMEN: Soft. Nondistended. Nontender. EXTREMITIES: Normal range of motion. No clubbing or cyanosis. Peripheral pulses intact. No lower extremity edema NEUROLOGIC: Awake and alert. Oriented x 3. ASSESSMENT: Diarrhea x 3 weeks Melena Hyponatremia Atrial fibrillation with RVR, paroxysmal versus persistent Possible obstructing choledocholithiasis per MRCP, malignancy not excluded Cholelithiasis with gallbladder wall thickening suggestive of acute cholecystitis Hypertension Hyperlipidemia Hypothyroidism PLAN: Obtain 2D echo to assess cardiac structure and function Hold Eliquis. May consider Watchman device if patient has continued episodes of bleeding with inability to tolerate anticoagulation. General Surgery has been consulted. Recommend endoscopy for further evaluation of melena Increase verapamil to 240 mg daily Continue telemetry monitoring Continue to hold hydrochlorothiazide secondary to hyponatremia Further recommendations pending patient course Nurse practitioner note has been reviewed by physician. Signing provider agrees with the documented findings, assessment, and plan of care documented by SIGNAL INTEGRITY ENGINEER as a scribe. Past Medical History Past Medical History: Hyperlipidemia, Hypertension, Thyroid Disorder Additional Past Medical History / Comment(s): overactive bladder History of Any Multi-Drug Resistant Organisms: None Reported Past Surgical History: Orthopedic Surgery, Tubal Ligation Additional Past Surgical History / Comment(s): left shoulder replacement; elbow fracture with repair; hemmoroid surgery Past Psychological History: No Psychological Hx Reported Smoking Status: Never smoker Past Alcohol Use History: None Reported Past Drug Use History: None Reported Medications and Allergies Home Medications Medication Instructions Recorded Confirmed Type Simvastatin [Zocor] 80 mg PO HS 08/14/19 02/01/25 History hydroCHLOROthiazide 50 mg PO DAILY 08/14/19 02/01/25 History Apixaban [Eliquis] 5 mg PO BID #60 tab 08/16/19 02/01/25 Rx Verapamil Sr [Isoptin Sr] 120 mg PO DAILY #30 tablet.er 08/16/19 02/01/25 Rx Levothyroxine Sodium [Synthroid] 125 mcg PO DAILY 02/01/25 02/01/25 History Potassium Chloride ER [K-Dur 10] 10 meq PO DAILY 02/01/25 02/01/25 History Allergies Allergy/AdvReac Type Severity Reaction Status Date / Time No Known Allergies Allergy Verified 02/01/25 18:13 Physical Exam Vitals: Vital Signs Temp Pulse Resp BP Pulse Ox 02/05/25 02:59 126 H 32 H 02/05/25 02:57 122 H 22 146/71 96 02/05/25 02:51 126 H 36 H 91 L 02/04/25 23:25 91 18 118/70 94 L 02/04/25 20:30 97.5 F L 111 H 20 125/65 95 02/04/25 20:00 111 H 02/04/25 15:48 92 16 108/66 91 L 02/04/25 09:53 109 H 16 02/04/25 09:05 97.4 F L 109 H 16 108/67 95 Intake and Output 02/04/25 02/05/25 02/05/25 22:59 06:59 14:59 Intake Total 1430 Output Total 500 Balance 930 Intake: IV 1430 Sodium Chloride 0.9% 1, 1430 000 ml @ 130 mls/hr IV . Q7H42M [facility] Rx#:[id number] metroNIDAZOLE-NS PMX 500 0 mg In Saline 1 100ml.bag @ 100 mls/hr IVPB Q8HR [facility] Rx#:[id number] Output: Urine 500 Other: Voiding Method Indwelling Catheter # Bowel Movements 1 Results 02/05/25 06:22 02/05/25 06:22 CBC 02/05/25 Range/Units 06:22 WBC 10.25 H (4.50-10.00) 10*3/uL RBC 3.45 L (4.10-5.20) 10*6/uL Hgb 11.1 L (12.0-15.0) g/dL Hct 32.5 L (37.2-46.3) % Plt Count 345 (140-440) 10*3/uL Comprehensive Metabolic Panel 02/05/25 Range/Units 06:22 Sodium 128 L (137-145) mmol/L Potassium 3.9 (3.5-5.1) mmol/L Chloride 101 (98-107) mmol/L Carbon Dioxide 22 (22-30) mmol/L BUN 6 L (7-17) mg/dL Creatinine 0.47 L (0.52-1.04) mg/dL Glucose 103 H (74-99) mg/dL Calcium 7.8 L (8.4-10.2) mg/dL Current Medications Generic Name Dose Route Start Last Admin Trade Name Freq PRN Reason Stop Dose Admin Acetaminophen 650 mg 02/02/25 11:48 02/04/25 20:31 Acetaminophen Tab 325 Mg Tab PO 650 mg Q6HR PRN Administration Fever and/ or Pain Atorvastatin Calcium 40 mg 02/02/25 21:00 02/04/25 20:31 Atorvastatin 40 Mg Tab PO 40 mg HS NATE Administration Ferrous Sulfate 325 mg 02/02/25 12:30 02/04/25 11:58 Ferrous Sulfate 325 Mg Tab PO 325 mg W/LUNCH NATE Administration Hydromorphone HCl 1 mg 02/01/25 22:22 Hydromorphone 0.5 Mg/0.5 Ml Syringe IVP ONCE PRN Pain Scale 4 to 6 Hydromorphone HCl 0.5 mg 02/01/25 23:16 02/05/25 02:33 Hydromorphone 0.5 Mg/0.5 Ml Syringe IVP 0.5 mg Q3HR PRN Administration Pain Sodium Chloride 1,000 mls @ 130 mls/hr 02/01/25 18:00 02/04/25 22:57 Saline 0.9% IV 130 mls/hr .Q7H42M NATE Administration Piperacillin Sod/Tazobactam 100 mls @ 25 mls/hr 02/05/25 08:00 Sod 3.375 gm/ Sodium Chloride IVPB Q8HR [facility] Protocol Levothyroxine Sodium 125 mcg 02/02/25 06:30 02/05/25 06:03 Levothyroxine 125 Mcg Tab PO 125 mcg DAILY@0630 NATE Administration Lidocaine 1 patch 02/01/25 22:30 02/04/25 09:09 Lidocaine 4% Patch TOPICAL 1 patch DAILY NATE Administration Protocol Miscellaneous Information 1 each 02/03/25 08:25 Potassium Replacement Protocol 1 Each [facility] MISCELLANE DAILY PRN Per Protocol Protocol Naloxone HCl 0.2 mg 02/01/25 17:50 Naloxone 0.4 Mg/Ml 1 Ml Vial IV Q2M PRN Opioid Reversal Ondansetron HCl 4 mg 02/01/25 17:50 02/05/25 02:33 Ondansetron 4 Mg/2 Ml Vial IVP 4 mg Q8HR PRN Administration Nausea And Vomiting Pantoprazole Sodium 40 mg 02/02/25 09:00 02/04/25 20:31 Pantoprazole 40 Mg/10 Ml Vial IVP 40 mg BID [facility]ATE Administration Petrolatum 1 applic 02/04/25 17:50 02/04/25 18:15 Zinc Oxide Paste (Z-Guard) 1 Applic TOPICAL 1 applic BID PRN Administration Wound Healing Protocol Verapamil HCl 120 mg 02/02/25 09:00 02/04/25 09:09 Verapamil Sr 120 Mg Tablet.Er PO 120 mg DAILY NATE Administration Intake and Output 02/04/25 02/05/25 02/05/25 22:59 06:59 14:59 Intake Total 1430 Output Total 500 Balance 930 Intake: IV 1430 Sodium Chloride 0.9% 1, 1430 000 ml @ 130 mls/hr IV . Q7H42M [facility] Rx#:[id number] metroNIDAZOLE-NS PMX 500 0 mg In Saline 1 100ml.bag @ 100 mls/hr IVPB Q8HR [facility] Rx#:[id number] Output: Urine 500 Other: Voiding Method Indwelling Catheter # Bowel Movements 1 02/05/25 06:22 02/05/25 06:22
--- NOTE | 2025-02-05 13:53 | XR ---
EXAMINATION TYPE: XR chest 1V DATE OF EXAM: 02/05/2025 COMPARISON: 02/03/2025 CLINICAL INDICATION: Female, 80 years old with history of short of breath; TECHNIQUE: Single frontal view of the chest is obtained. FINDINGS: Resurfacing left shoulder arthroplasty. Advanced degenerative change right shoulder. Heart borderline enlarged. Diffuse interstitial and patchy opacities. Suspect trace bilateral pleural effusions. IMPRESSION: Interval worsening. Correlate for CHF with mild interstitial pulmonary edema. Trace pleu ral effusions. [facility], , 02/05/2025 1:51 PM
--- NOTE | 2025-02-05 14:23 | P.GSCN ---
History of Present Illness Consult date: 02/05/25 History of present illness: CHIEF COMPLAINT: Diarrhea HISTORY OF PRESENT ILLNESS: This is a 80-year-old female who presented with diarrhea intermittently for the last 3 weeks. She reports black stools that started after taking Pepto-Bismol. Her stool today per nursing staff is also black. She takes Eliquis for her A-fib. It has been about 3 days since her last dose. Her hemoglobin is stable at 11.1. Stool for occult blood was positive. Patient denies any abdominal pain. Patient had a CT scan abdomen and pelvis that had reported gallstones and biliary dilation as well as large stool burden in the rectum. MRCP was then ordered by medicine service for further evaluation of the biliary ductal dilation. MRCP reported filling defect within the distal CBD near the ampulla with marked upstream CBD and intrahepatic bile duct dilatation measuring up to 18 mm in diameter. Findings are felt most likely reflect sequelae of obstructing choledocholithiasis. However malignancy would be difficult to exclude an ERCP would be recommended for further evaluation. Cholelithiasis, gallbladder wall thickening/edema and mild pericholecystic fluid suggestive of acute cholecystitis in the appropriate clinical setting. Patient denies any abdominal pain. Patient's LFTs are normal. She does report a 50 to 60 pound weight loss in about 6 months. She does report having shortness of breath. Denies any cough. Patient denies any prior abdominal surgeries. PAST MEDICAL HISTORY: See below PAST SURGICAL HISTORY: See below MEDICATIONS: See below ALLERGIES: See below SOCIAL HISTORY: No illicit drug use. REVIEW OF SYSTEMS: CONSTITUTIONAL: Denies fever or chills. HEENT: Denies blurred vision, vision changes, or eye pain. Denies hemoptysis CARDIOVASCULAR: Denies chest pain or pressure. RESPIRATORY: No shortness of breath. GASTROINTESTINAL: See HPI for pertinent findings HEMATOLOGIC: Denies bleeding disorders. GENITOURINARY: Denies any blood in urine or increased urinary frequency. SKIN: Denies pruitis. Denies rash. PHYSICAL EXAM: VITAL SIGNS: Reviewed GENERAL: No acute distress. Does appear short of breath. HEENT: No sclera icterus. Extraocular movements grossly intact. Moist buccal mucosa. Head is atraumatic, normocephalic. No nasal drainage. ABDOMEN: Soft. Obese. Nondistended. Nontender. No rebound or guarding noted. No tenderness with palpation right upper quadrant. NEUROLOGIC: Alert and oriented. Cranial nerves II through XII grossly intact. LABORATORY DATA: WBC is up from 9.73-10.25 Hgb 13.4 on admission. Hgb 11.1 on 02/05/25 platelets 345 Sodium 128 potassium 3.9 creatinine 0.47 total bilirubin 0.7 AST 29 ALT 16 alk phos 49 lipase 153 Stool for C. difficile negative Stool for occult blood positive IMAGING: CT scan abdomen pelvis reports cholelithiasis with biliary dilation of the common bile duct up to 20 mm. Further evaluation with MRCP recommended high density calcification versus oral contrast within the duodenal diverticulum. Large stool burden in the rectum correlate for fecal stasis/constipation. Moderate degenerative changes of the spine. Moderate severe spinal process L2- L3 MRCP reports low intensity T2 signal filling defect within the distal CBD near the ampulla with marked upstream CBD and intrahepatic bile duct dilatation measuring up to 18 mm in diameter. Limited evaluation given lack of IV contrast. However findings are felt to most likely reflect sequelae of obstructing choledocholithiasis. However malignancy would be difficult to exclude an ERCP would be recommended for further evaluation if clinically warranted. Cholelithiasis, gallbladder wall thickening/edema and mild pericholecystic fluid suggestive of acute cholecystitis in appropriate clinical setting. ASSESSMENT: 1. Cholelithiasis, gallbladder wall thickening, mild pericholecystic fluid noted on CT scan 2. Possible obstructing choledocholithiasis however malignancy not excluded. MRCP notes a filling defect within the distal CBD near the ampulla and intrahepatic bile duct dilatation. 3. Diarrhea with melanotic stools had been on Pepto-Bismol prior to admission. She is now on iron. Both medications can contribute to black stools. hgb stable 4. Large stool burden noted on CT 5. 50 to 60 pound weight loss in the last 6 months PLAN: - Recommend transfer for ERCP and to be evaluated by GI service. There is no GI service available this week. - Hold Eliquis - Continue antibiotics - Repeat CBC and CMP in a.m. - Ok for regular diet - Medicine service has ordered CXR for Shortness of breath Physician Paralegal Secretary note has been reviewed by physician. Signing provider agrees with the documented findings, assessment, and plan of care. Past Medical History Past Medical History: Hyperlipidemia, Hypertension, Thyroid Disorder Additional Past Medical History / Comment(s): overactive bladder History of Any Multi-Drug Resistant Organisms: None Reported Past Surgical History: Orthopedic Surgery, Tubal Ligation Additional Past Surgical History / Comment(s): left shoulder replacement; elbow fracture with repair; hemmoroid surgery Past Psychological History: No Psychological Hx Reported Smoking Status: Never smoker Past Alcohol Use History: None Reported Past Drug Use History: None Reported Medications and Allergies Home Medications Medication Instructions Recorded Confirmed Type Simvastatin [Zocor] 80 mg PO HS 08/14/19 02/01/25 History hydroCHLOROthiazide 50 mg PO DAILY 08/14/19 02/01/25 History Apixaban [Eliquis] 5 mg PO BID #60 tab 08/16/19 02/01/25 Rx Verapamil Sr [Isoptin Sr] 120 mg PO DAILY #30 tablet.er 08/16/19 02/01/25 Rx Levothyroxine Sodium [Synthroid] 125 mcg PO DAILY 02/01/25 02/01/25 History Potassium Chloride ER [K-Dur 10] 10 meq PO DAILY 02/01/25 02/01/25 History Allergies Allergy/AdvReac Type Severity Reaction Status Date / Time No Known Allergies Allergy Verified 02/01/25 18:13 Surgical - Exam Vital Signs Temp Pulse Resp BP Pulse Ox 98.6 F 80 18 119/76 94 L 02/01/25 16:06 02/01/25 16:06 02/01/25 16:06 02/01/25 16:06 02/01/25 16:06 Results - Labs 02/05/25 06:22 02/05/25 06:22 Abnormal Lab Results - Last 24 Hours (Table) 02/05/25 02/05/25 Range/Units 06:22 06:22 WBC 10.25 H (4.50-10.00) 10*3/uL RBC 3.45 L (4.10-5.20) 10*6/uL Hgb 11.1 L (12.0-15.0) g/dL Hct 32.5 L (37.2-46.3) % MCH 32.2 H (27.0-32.0) pg MPV 8.2 L (9.5-12.2) fL Sodium 128 L (137-145) mmol/L BUN 6 L (7-17) mg/dL Creatinine 0.47 L (0.52-1.04) mg/dL Glucose 103 H (74-99) mg/dL Calcium 7.8 L (8.4-10.2) mg/dL Microbiology - Last 24 Hours (Table) 02/03/25 11:50 Stool Culture - Preliminary Stool Diabetes panel 02/05/25 Range/Units 06:22 Sodium 128 L (137-145) mmol/L Potassium 3.9 (3.5-5.1) mmol/L Chloride 101 (98-107) mmol/L Carbon Dioxide 22 (22-30) mmol/L BUN 6 L (7-17) mg/dL Creatinine 0.47 L (0.52-1.04) mg/dL Glucose 103 H (74-99) mg/dL Calcium 7.8 L (8.4-10.2) mg/dL Calcium panel 02/05/25 Range/Units 06:22 Calcium 7.8 L (8.4-10.2) mg/dL Pituitary panel 02/05/25 Range/Units 06:22 Sodium 128 L (137-145) mmol/L Potassium 3.9 (3.5-5.1) mmol/L Chloride 101 (98-107) mmol/L Carbon Dioxide 22 (22-30) mmol/L BUN 6 L (7-17) mg/dL Creatinine 0.47 L (0.52-1.04) mg/dL Glucose 103 H (74-99) mg/dL Calcium 7.8 L (8.4-10.2) mg/dL Adrenal panel 02/05/25 Range/Units 06:22 Sodium 128 L (137-145) mmol/L Potassium 3.9 (3.5-5.1) mmol/L Chloride 101 (98-107) mmol/L Carbon Dioxide 22 (22-30) mmol/L BUN 6 L (7-17) mg/dL Creatinine 0.47 L (0.52-1.04) mg/dL Glucose 103 H (74-99) mg/dL Calcium 7.8 L (8.4-10.2) mg/dL
--- NOTE | 2025-02-05 14:27 | CA ---
Transthoracic Echo Report Name: Sangita Yusuf Age: 80 Gender: F : 1945 Exam Date: 02/05/2025 11:02 Exam Location: [place] [facility] Ht (in): 66 Wt (lb): 210 Ordering Physician: Ashutosh Garcia MD Attending/Referring Phys: Business Process Representative Lou Orlando RDCS Procedure CPT: Indications: afib Cardiac Hx: Technical Quality: Poor Contrast 1: Total Dose (mL): Contrast 2: Total Dose (mL): MEASUREMENTS (Male / Female) Normal Values 2D ECHO LV Diastolic Diameter PLAX 4.5 cm 4.2 - 5.9 / 3.9 - 5.3 cm LV Systolic Diameter PLAX 3.8 cm IVS Diastolic Thickness 1.1 cm 0.6 - 1.0 / 0.6 - 0.9 cm LVPW Diastolic Thickness 1.4 cm 0.6 - 1.0 / 0.6 - 0.9 cm LV Relative Wall Thickness 0.6 RV Internal Dim ED PLAX 3.1 cm LA Systolic Diameter LX 4.4 cm 3.0 - 4.0 / 2.7 - 3.8 cm M-MODE Aortic Root Diameter MM 3.3 cm DOPPLER AV Peak Velocity 182.2 cm/s AV Peak Gradient 13.3 mmHg AV Mean Velocity 120.5 cm/s AV Mean Gradient 6.6 mmHg AV Velocity Time Integral 37.8 cm AI Peak Velocity 342.1 cm/s AI Peak Gradient 46.8 mmHg AI Pressure Half Time 736.1 ms TR Peak Velocity 279.7 cm/s TR Peak Gradient 31.3 mmHg Right Ventricular Systolic Press 41.3 mmHg FINDINGS Left Ventricle Left ventricular ejection fraction is estimated at 45 %. Left ventricular cavity size normal. Mildly increased septal wall thickness. Moderately increased posterior wall thickness. Right Ventricle Normal right ventricular size. Mild pulmonary hypertension. Right Atrium Moderate right atrial dilatation. No right atrial thrombus or mass seen. Left Atrium Moderately increased left atrial diameter. No left atrial thrombus or mass present. Mitral Valve Mitral valve thickened. Mild mitral annular calcification. Mild mitral regurgitation. Aortic Valve Trileaflet aortic valve. Thickened aortic valve without stenosis. Mild aortic regurgitation. Tricuspid Valve Tricuspid valve not well visualized. Mild tricuspid regurgitation. Pulmonic Valve Pulmonic valve not well visualized. No pulmonic regurgitation. Pericardium No pericardial effusion. Aorta Normal size aortic root and proximal ascending aorta. CONCLUSIONS LVEF 45% Mild concentric LVH Moderate biatrial dilatation Mild MR Mild AI Mild TR Mild pulmonary hypertension RVSP 41 mmHg Previewed by: Dr Daren Saeed (Electronically Signed) Final Date: 05 February 2025 14:26
[2025-02-05] MEDS: FUROSEMIDE 10 MG/ML 4 ML VIAL IV STA (15:07)
[2025-02-05] MEDS: MAGNESIUM SULFATE-D5W PMX 1 GM in DEXTROSE/WATER 1 100ML.BAG IVPB SCH (16:25)
[2025-02-06 06:51] LABS: Basophils # (A) 0.03 10*3/uL (0.00-0.10); Basophils % (A) 0.3 %; Eosinophils # (A) 0.25 10*3/uL (0.04-0.35); Eosinophils % (A) 2.2 %; HCT 34.5 % (37.2-46.3); HGB 12.2 g/dL (12.0-15.0); Lymphocytes # (A) 0.72 10*3/uL (0.90-5.00); Lymphocytes % (A) 6.4 %; MCH 33.2 pg (27.0-32.0); MCHC 35.4 g/dL (32.0-37.0); MCV 93.8 fL (80.0-97.0); Mean Platelet Volume 8.6 fL (9.5-12.2); Monocytes # (A) 1.17 10*3/uL (0.20-1.00); Monocytes % (A) 10.5 %; Neutrophils # (A) 8.97 10*3/uL (1.80-7.70); Neutrophils % (A) 80.2 %; Platelet Count 360 10*3/uL (140-440); RBC 3.68 10*6/uL (4.10-5.20); RDW 13.3 % (11.5-14.5); WBC 11.18 10*3/uL (4.50-10.00)
[2025-02-06 07:12] LABS: ALT 18 U/L (4-34); AST 31 U/L (14-36); African American GFR (CKD) >90 (>60 ml/min/1.73 sqM); Albumin 2.7 g/dL (3.5-5.0); Alkaline Phosphatase 53 U/L (38-126); Anion Gap 8 mmol/L; Blood Urea Nitrogen 6 mg/dL (7-17); Calcium 7.9 mg/dL (8.4-10.2); Carbon Dioxide 26 mmol/L (22-30); Chloride 94 mmol/L (98-107); Glucose 90 mg/dL (74-99); Non-African American GFR(CKD) 86 (>60 ml/min/1.73 sqM); Potassium 3.1 mmol/L (3.5-5.1); Sodium 128 mmol/L (137-145); Total Bilirubin 0.7 mg/dL (0.2-1.3); Total Protein 5.5 g/dL (6.3-8.2)
[2025-02-06] MEDS: FUROSEMIDE 10 MG/ML 4 ML VIAL IV SCH (12:56)
--- NOTE | 2025-02-06 13:59 | P.PN ---
Subjective HISTORY OF PRESENT ILLNESS: This is a 80-year-old female with a past medical history significant for atrial fibrillation, hypertension, hyperlipidemia, and hypothyroidism. Patient used to follow in the office with Dr. Carrasco but has not been seen since 2019. We have been asked to see the patient in consultation for atrial fibrillation. Patient examined at the bedside. Patient's is present. Patient presented to the hospital with a chief complaint of diarrhea. She states she has been having diarrhea for 3 weeks. She denied having any abdominal pain. She reports she has been taking Pepto-Bismol at home to help with the diarrhea. She reports having black stools as well. However she states she has been having black stools prior to taking Pepto-Bismol. She reports decreased appetite and states that she was not able to eat much this morning but did drink some juice. She feels mildly short of breath this morning. She denies any chest pain or pressure. Telemetry this morning reveals atrial fibrillation with a heart rate around 120. Patient denies any palpitations, dizziness, or lightheadedness. DIAGNOSTICS: - EKG reveals A-fib with RVR. - Laboratory data: WBC 10.25. Hemoglobin 11.1. Platelet count 345. Sodium 128. Potassium 3.9. BUN 6. Creatinine 0.47. Procalcitonin 0.14. TSH 4.210. Stool for occult blood is positive. - Current home cardiac medications include verapamil 120 mg daily, hydrochlorothiazide 50 mg daily, simvastatin 80 mg at night, Eliquis 5 mg twice a day - Most recent echocardiogram obtained in 2019 revealing hyperdynamic EF greater than 70%, mild aortic regurgitation, trace to mild mitral regurgitation, mild tricuspid regurgitation - Cardiac catheterization history: Unknown 02/06/2025 Patient examined this morning at bedside. Patient currently denies chest pain or pressure. She does report some shortness of breath. She is currently on 4 L nasal cannula. Per nursing, patient did receive a dose of IV Lasix yesterday. Per nursing, plans are underway for transfer to [facility] as there is no GI service available at this facility currently. Patient's Eliquis remains on hold. Echocardiogram completed revealing ejection fraction 45%, mild pulm hypertension, mild mitral regurgitation, mild aortic regurgitation, mild tricuspid regurgitation PHYSICAL EXAM: VITAL SIGNS: Reviewed. GENERAL: Well-developed in no acute distress. HEENT: Head is normocephalic. Pupils are equal, round. Sclerae anicteric. Mucous membranes of the mouth are moist. Neck supple. No JVD or thyromegaly LUNGS: Respirations even and unlabored. Lungs essentially clear to auscultation bilaterally, mild wheezing. HEART: Tachycardic. Irregular rate and rhythm. S1 and S2 heard. ABDOMEN: Soft. Nondistended. Nontender. EXTREMITIES: Normal range of motion. No clubbing or cyanosis. Peripheral pulses intact. Trace bilateral lower extremity edema NEUROLOGIC: Awake and alert. Oriented x 3. ASSESSMENT: Diarrhea x 3 weeks Melena Hyponatremia Atrial fibrillation with RVR, paroxysmal versus persistent Possible obstructing choledocholithiasis per MRCP, malignancy not excluded Cholelithiasis with gallbladder wall thickening suggestive of acute cholecystitis Hypertension Hyperlipidemia Hypothyroidism Acute heart failure with mildly reduced EF, 45% PLAN: Hold Eliquis per general surgery. Resume when cleared by consultants. May consider Watchman device if patient has continued episodes of bleeding with inability to tolerate anticoagulation. General surgery following and recommends transfer to tertiary care center Continue verapamil to 240 mg daily Continue telemetry monitoring Continue to hold hydrochlorothiazide secondary to hyponatremia Begin IV Lasix 40 mg daily Daily weights, accurate intake and output, monitoring of kidney function Further recommendations pending patient course Nurse practitioner note has been reviewed by physician. Signing provider agrees with the documented findings, assessment, and plan of care documented by QUARTER SEAMER as a scribe. Objective - Vital Signs Vital signs: Vital Signs Temp 97.6 F 02/06/25 11:23 Pulse 65 02/06/25 11:23 Resp 20 02/06/25 11:23 BP 116/72 02/06/25 11:23 Pulse Ox 92 L 02/06/25 11:23 FiO2 Intake & Output 02/05/25 02/06/25 02/06/25 18:59 06:59 18:59 Intake Total 1020 240 Output Total 2650 4505 186 Balance -5360 -1760 928 Weight 96 kg Intake: IV 620 Sodium Chloride 0.9% 1, 620 000 ml @ 130 mls/hr IV . Q7H42M [facility] Rx#:[id number] Intake, IV Titration 400 Amount Magnesium Sulfate-D5w Pmx 200 1 gm In Dextrose/Water 1 100ml.bag @ 100 mls/hr IVPB Q1H [facility] Rx#: [id number] Piperacillin-Tazobactam 3 200 .375 gm In Sodium Chloride 0.9% 100 ml @ 25 mls/hr IVPB Q8HR [facility] Rx# :[id number] Oral 240 Output: Urine 2650 2000 925 Straight 850 Other: Voiding Method Indwelling Catheter Indwelling Catheter # Bowel Movements 1 - Labs CBC & Chem 7: 02/06/25 05:23 02/06/25 05:23 Labs: Abnormal Lab Results - Last 24 Hours (Table) 02/06/25 02/06/25 Range/Units 05:23 05:23 WBC 11.18 H (4.50-10.00) 10*3/uL RBC 3.68 L (4.10-5.20) 10*6/uL Hct 34.5 L (37.2-46.3) % MCH 33.2 H (27.0-32.0) pg MPV 8.6 L (9.5-12.2) fL Neutrophils # 8.97 H (1.80-7.70) 10*3/uL Lymphocytes # 0.72 L (0.90-5.00) 10*3/uL Monocytes # 1.17 H (0.20-1.00) 10*3/uL Sodium 128 L (137-145) mmol/L Potassium 3.1 L (3.5-5.1) mmol/L Chloride 94 L (98-107) mmol/L BUN 6 L (7-17) mg/dL Calcium 7.9 L (8.4-10.2) mg/dL Total Protein 5.5 L (6.3-8.2) g/dL Albumin 2.7 L (3.5-5.0) g/dL Microbiology - Last 24 Hours (Table) 02/05/25 06:22 Blood Culture - Preliminary Blood 02/03/25 11:50 Stool Culture - Preliminary Stool
--- NOTE | 2025-02-06 14:54 | P.PN ---
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 In the ED she underwent extensive evaluation. T 98.6 F, VA 80, RR 18, BP 119/76, 94% on room air. EKG showed atrial fibrillation, rate 100 bpm, QTc 489 ms. CBC, CMP significant for WBC 12.98, RBC 4.08, Hct 36.9, Na 125, K 3, Cl 86, BUN 18, glu 111. Mag 1.5. Lactic acid 1.6. Lipase 153. Procal 0.14. TSH 4.21. Iron studies Fe 32, % sat 11.43, Ferritin 196. UA neg LE or nitrite. Stool occult +. Serum Osm 267. Urine Osm 440. Dejan 64. C. diff neg. GI consulted, recommended IV Flagyl and CT AP which revealed cholelithiasis with biliary dilation of the CBD 20 mm, large stool burden, severe DJD bilateral hips, mod-severe spinal process at L2- 3. MRCP was obtained showing CBD dilation up to 18 mm, findings felt to most likely reflect sequelae of obstructing choledocholithiasis, malignancy difficult to exclude along with cholelithiasis, gallbladder wall thickening and edema with mild pericholecystic fluid suggestive of acute cholecystitis. Attempted to tra [facility] to [facility] for [facility] evaluation, GI recommended outpatient follow-up and endoscopic ultrasound. Went into A-Fib with RVR on 02/05, Cardiology was consulted, Verapamil adjusted. CXR showing concerns of CHF exacerbation, she has been started on Lasix 40 mg IV QD. 02/06 Patient was seen and examined. Reports no abdominal pain. CXR done yesterday showing pulmonary vascular congestion. Started on Lasix 40 mg IV QD yesterday for CHF exacerbation. Antibiotics include Zosyn 3.75g IV TID. CBC and CMP significant for WBC 11.18, RBC 3.68, Hct 34.5, Na 128, K 3.1, Cl 94, BUN 6, alb 2.7. Echo shows EF 45%. Stool Cx and BCx neg so far. Discussed with Dania PROVIDER NETWORK MANAGER with Surgery, recommending transfer to [facility] for GI evaluation and ERCP. General: toxic, no distress, appears older than stated age Derm: warm, dry Head: atraumatic, normocephalic, symmetric Mouth: no lip lesion, mucus membranes moist Cardiovascular: good distal perfusion in all 4 extremities Lungs: breathing comfortably, no accessory muscle use Ext: no gross muscle atrophy, no edema, no contractures Neuro: No focal neurologic deficits. Psych: Alert and oriented. Based on my assessment of this patient, this patient meets a high complexity level of care. Acute hypoxic respiratory failure secondary to CHF exacerbation: Lasix 40 mg IV QD. Strict intake and outtake. Echo as above. Monitor daily elytes and renal function. Cardiology on board. Atrial fibrillation with RVR: Verapamil increased from 120 to 240 mg PO BID. Eliquis on hold due to + stool occult. Maintain K > 4 and Mg > 2. Telemetry monitoring. Echo as above. Cardiology on board. Sepsis with concerns for cholecystitis and choledocolithiasis: Leukocytosis and tachycardia. MRCP concerning for cholecystitis. Continue Zosyn as above. Stool Cx and BCx neg so far. Surgery on board. Diarrhea: Likely overflow diarrhea from large stool burden. C. diff neg. No history of antibiotic use. Stool Cx neg so far. Ideally would need C-scope in the near future. Hypokalemia: KCl 40 meq PO x 1. Generalized weakness and Debility: Multifactorial. Electrolyte derangement. Sev ere DJD, severe spinal process at L2-3. Fall precautions. PT and OT consult. Stool occult +: Hold Eliquis. Hg stable. Transfuse if Hg < 7. Hyponatremia: Improving with IV hydration. CODE STATUS: FULL CODE. DVT Prophylaxis: SCD GI Prophylaxis: Protonix IV BID. Designated medical POA if patient is not able to make medical decisions for themselves: I have reviewed the following solutions delivery consultant notes: Cardiology, Surgery. I have reviewed the results of the following tests: CBC, CMP, Echo, Stool Cx, BCx. I have ordered the following tests: CBC, BMP, Mag in the AM. I have discussed the care of this patient with the following independent historian: Family at bedside, agreeable for transfer, awaiting call back from [facility]. I have independently interpreted the following test below: I have discussed the management of this patient with the following physician: Dania MALDONADO. Objective - Vital Signs Vital signs: Vital Signs Temp 97.6 F 02/06/25 11:23 Pulse 65 02/06/25 11:23 Resp 20 02/06/25 11:23 BP 116/72 02/06/25 11:23 Pulse Ox 92 L 02/06/25 11:23 FiO2 Intake & Output 02/05/25 02/06/25 02/06/25 18:59 06:59 18:59 Intake Total 1020 240 Output Total 2650 1999 925 Balance -1630 -1760 -925 Weight 96 kg Intake: IV 620 Sodium Chloride 0.9% 1, 620 000 ml @ 130 mls/hr IV . Q7H42M [facility] Rx#:[id number] Intake, IV Titration 400 Amount Magnesium Sulfate-D5w Pmx 200 1 gm In Dextrose/Water 1 100ml.bag @ 100 mls/hr IVPB Q1H [facility] Rx#: [id number] Piperacillin-Tazobactam 3 200 .375 gm In Sodium Chloride 0.9% 100 ml @ 25 mls/hr IVPB Q8HR [facility] Rx# :[id number] Oral 240 Output: Urine 2650 1999 925 Straight 850 Other: Voiding Method Indwelling Catheter Indwelling Catheter # Bowel Movements 1 - Labs CBC & Chem 7: 02/06/25 05:23 02/06/25 05:23 Labs: Abnormal Lab Results - Last 24 Hours (Table) 02/06/25 02/06/25 Range/Units 05:23 05:23 WBC 11.18 H (4.50-10.00) 10*3/uL RBC 3.68 L (4.10-5.20) 10*6/uL Hct 34.5 L (37.2-46.3) % MCH 33.2 H (27.0-32.0) pg MPV 8.6 L (9.5-12.2) fL Neutrophils # 8.97 H (1.80-7.70) 10*3/uL Lymphocytes # 0.72 L (0.90-5.00) 10*3/uL Monocytes # 1.17 H (0.20-1.00) 10*3/uL Sodium 128 L (137-145) mmol/L Potassium 3.1 L (3.5-5.1) mmol/L Chloride 94 L (98-107) mmol/L BUN 6 L (7-17) mg/dL Calcium 7.9 L (8.4-10.2) mg/dL Total Protein 5.5 L (6.3-8.2) g/dL Albumin 2.7 L (3.5-5.0) g/dL Microbiology - Last 24 Hours (Table) 02/05/25 06:22 Blood Culture - Preliminary Blood 02/03/25 11:50 Stool Culture - Preliminary Stool
--- NOTE | 2025-02-06 15:29 | P.PN ---
Subjective Progress Note Date: 02/06/25 SURGICAL PROGRESS NOTE CHIEF COMPLAINT: Diarrhea HISTORY OF PRESENT ILLNESS: Patient continues to report diarrhea. She denies any abdominal pain. Denies any nausea or vomiting. She was able to eat a small amount. Chest x-ray had shown CHF. Patient is received IV Lasix. WBC is 11.18 Hgb stable at 12. LFTs are normal. Medicine service did try to transfer to [facility] but they recommended outpatient follow-up for EUS. Patient is having urinary retention had Small catheter placed. PHYSICAL EXAM: VITAL SIGNS: Reviewed. GENERAL: Well-developed in no acute distress. ABDOMEN: Soft. Nondistended. Nontender. NEUROLOGIC: Alert and oriented. Cranial nerves II through XII grossly intact. ASSESSMENT: 1. Cholelithiasis, gallbladder wall thickening, mild pericholecystic fluid noted on CT scan 2. Possible obstructing choledocholithiasis however malignancy not excluded. MRCP notes a filling defect within the distal CBD near the ampulla and intrahepatic bile duct dilatation. 3. Diarrhea with melanotic stools had been on Pepto-Bismol prior to admission. She is now on iron. Both medications can contribute to black stools. hgb stable 4. Large stool burden noted on CT 5. 50 to 60 pound weight loss in the last 6 months PLAN: -Recommend transfer to [facility] for ERCP and GI eval -Soapsuds enemas ordered for constipation Physician Rivet Maker note has been reviewed by physician. Signing provider agrees with the documented findings, assessment, and plan of care. Attestation Patient seen and examined at bedside on 02/06/2025. No acute events. Having bowel function. Denies abdominal pain. Awaiting transfer to [facility] for ERCP and GI evaluation as the services are not available at this institution at this time. Continue medical management. Clemente Rea, Objective - Vital Signs Vital signs: Vital Signs Temp 97.6 F 02/06/25 11:23 Pulse 65 02/06/25 11:23 Resp 20 02/06/25 11:23 BP 116/72 02/06/25 11:23 Pulse Ox 92 L 02/06/25 11:23 FiO2 Intake & Output 02/05/25 02/06/25 02/06/25 18:59 06:59 18:59 Intake Total 1020 240 118 Output Total 2650 2000 1800 Balance -1630 -1760 -9428 Weight 96 kg Intake: IV 620 Sodium Chloride 0.9% 1, 620 000 ml @ 130 mls/hr IV . Q7H42M [facility] Rx#:[id number] Intake, IV Titration 400 Amount Magnesium Sulfate-D5w Pmx 200 1 gm In Dextrose/Water 1 100ml.bag @ 100 mls/hr IVPB Q1H [facility] Rx#: [id number] Piperacillin-Tazobactam 3 200 .375 gm In Sodium Chloride 0.9% 100 ml @ 25 mls/hr IVPB Q8HR [facility] Rx# :[id number] Oral 240 118 Output: Urine 2650 2000 1800 Straight 850 Other: Voiding Method Indwelling Catheter Indwelling Catheter # Bowel Movements 1 - Labs CBC & Chem 7: 02/06/25 05:23 02/07/25 05:30 Labs: Abnormal Lab Results - Last 24 Hours (Table) 02/06/25 02/06/25 Range/Units 05:23 05:23 WBC 11.18 H (4.50-10.00) 10*3/uL RBC 3.68 L (4.10-5.20) 10*6/uL Hct 34.5 L (37.2-46.3) % MCH 33.2 H (27.0-32.0) pg MPV 8.6 L (9.5-12.2) fL Neutrophils # 8.97 H (1.80-7.70) 10*3/uL Lymphocytes # 0.72 L (0.90-5.00) 10*3/uL Monocytes # 1.17 H (0.20-1.00) 10*3/uL Sodium 128 L (137-145) mmol/L Potassium 3.1 L (3.5-5.1) mmol/L Chloride 94 L (98-107) mmol/L BUN 6 L (7-17) mg/dL Calcium 7.9 L (8.4-10.2) mg/dL Total Protein 5.5 L (6.3-8.2) g/dL Albumin 2.7 L (3.5-5.0) g/dL Microbiology - Last 24 Hours (Table) 02/05/25 06:22 Blood Culture - Preliminary Blood 02/03/25 11:50 Stool Culture - Preliminary Stool
[2025-02-06] MEDS: POTASSIUM CHLORIDE ER 20 MEQ TAB.ER PO STA (16:05)
[2025-02-07 07:18] LABS: African American GFR (CKD) >90 (>60 ml/min/1.73 sqM); Anion Gap 4 mmol/L; Blood Urea Nitrogen 7 mg/dL (7-17); Carbon Dioxide 32 mmol/L (22-30); Chloride 91 mmol/L (98-107); Glucose 90 mg/dL (74-99); Non-African American GFR(CKD) 85 (>60 ml/min/1.73 sqM); Potassium 2.8 mmol/L (3.5-5.1); Sodium 127 mmol/L (137-145)
[2025-02-07 09:08] VITALS: RESP 16; TEMP 97.8
--- NOTE | 2025-02-07 11:09 | P.PN ---
Subjective Progress Note Date: 02/07/25 SURGICAL PROGRESS NOTE CHIEF COMPLAINT: Diarrhea HISTORY OF PRESENT ILLNESS: Patient denies any abdominal pain. She did have a bowel movement after the soapsuds enema. She is awaiting transfer to [facility] for GI eval and possible ERCP. Afebrile. Heart rate 109. Sodium 127 potassium is 2.8 and being replaced. Patient on IV Lasix for fluid overload PHYSICAL EXAM: VITAL SIGNS: Reviewed. GENERAL: Well-developed in no acute distress. ABDOMEN: Soft. Nondistended. Nontender. NEUROLOGIC: Alert and oriented. Cranial nerves II through XII grossly intact. ASSESSMENT: 1. Cholelithiasis, gallbladder wall thickening, mild pericholecystic fluid noted on CT scan 2. Possible obstructing choledocholithiasis however malignancy not excluded. MRCP notes a filling defect within the distal CBD near the ampulla and intrahepatic bile duct dilatation. 3. Diarrhea with melanotic stools had been on Pepto-Bismol prior to admission. She is now on iron. Both medications can contribute to black stools. hgb stable 4. Large stool burden noted on CT. having bowel movements 5. 50 to 60 pound weight loss in the last 6 months PLAN: -Recommend transfer to [facility] for ERCP and GI eval -Continue to correct electrolytes Physician Precision Inspector note has been reviewed by physician. Signing provider agrees with the documented findings, assessment, and plan of care. Attestation Patient seen and examined at bedside. No acute events. Denies abdominal pain. Awaiting transfer to [facility] for ERCP and GI evaluation as the services are not available at this institution at this time. Continue medical management. Clemente Rae DO Objective - Vital Signs Vital signs: Vital Signs Temp 97.8 F 02/07/25 08:00 Pulse 109 H 02/07/25 08:00 Resp 16 02/07/25 08:00 BP 123/80 02/07/25 08:00 Pulse Ox 96 02/07/25 09:11 FiO2 Intake & Output 02/06/25 02/07/25 02/07/25 18:59 06:59 18:59 Intake Total 558 Output Total 1800 600 Balance -1242 -600 Intake: Intake, IV Titration 200 Amount Piperacillin-Tazobactam 3 200 .375 gm In Sodium Chloride 0.9% 100 ml @ 25 mls/hr IVPB Q8HR [facility] Rx# :[id number] Oral 358 Output: Urine 1800 600 Other: Voiding Method Indwelling Catheter Indwelling Catheter Indwelling Catheter # Bowel Movements 2 - Labs CBC & Chem 7: 02/06/25 05:23 02/07/25 05:30 Labs: Abnormal Lab Results - Last 24 Hours (Table) 02/07/25 Range/Units 05:30 Sodium 127 L (137-145) mmol/L Potassium 2.8 L (3.5-5.1) mmol/L Chloride 91 L (98-107) mmol/L Carbon Dioxide 32 H (22-30) mmol/L Calcium 8.0 L (8.4-10.2) mg/dL Microbiology - Last 24 Hours (Table) 02/03/25 11:50 Stool Culture - Final Stool 02/05/25 06:22 Blood Culture - Preliminary Blood
[2025-02-07] MEDS: POTASSIUM CHLORIDE 10 MEQ in WATER FOR INJECTION 1 100ML.BAG IVPB SCH (12:15)
[2025-02-07] MEDS: POTASSIUM CHLORIDE ER 20 MEQ TAB.ER PO STA (12:15)
[2025-02-07] MEDS: MAGNESIUM SULFATE-D5W PMX 1 GM in DEXTROSE/WATER 1 100ML.BAG IVPB SCH (12:15)
[2025-02-07 12:25] VITALS: BP 115/71; PULSE 64
--- NOTE | 2025-02-07 13:42 | P.DS ---
Providers Date of admission: 02/01/25 17:50 Expected date of discharge: 02/07/25 Attending physician: Diana Burnett MD Consults: 02/01/25 17:50 Consult Physician Routine Consulting Provider: Rosita Schilling Consult Reason/Comments: gi bleed Do you want consulting provider notified?: Yes 02/04/25 10:15 Consult Physician Routine Consulting Provider: Flo Encarnacion Consult Reason/Comments: cholecystitis on MRCP, dilated CBD, no pain, no LFT abn Do you want consulting provider notified?: Yes 02/05/25 02:48 Consult Physician Routine Consulting Provider: Jonah Godoy Consult Reason/Comments: afib Do you want consulting provider notified?: Yes Primary care physician: Rj Carpio MD Hospital Course: 80 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 In the ED she underwent extensive evaluation. T 98.6 F, MT 80, RR 18, BP 119/76, 94% on room air. EKG showed atrial fibrillation, rate 100 bpm, QTc 489 ms. CBC, CMP significant for WBC 12.98, RBC 4.08, Hct 36.9, Na 125, K 3, Cl 86, BUN 18, glu 111. Mag 1.5. Lactic acid 1.6. Lipase 153. Procal 0.14. TSH 4.21. Iron studies Fe 32, % sat 11.43, Ferritin 196. UA neg LE or nitrite. Stool occult +. Serum Osm 267. Urine Osm 440. Dejan 64. C. diff neg. GI consulted, recommended IV Flagyl and CT AP which revealed cholelithiasis with biliary dilation of the CBD 20 mm, large stool burden, severe DJD bilateral hips, mod-severe spinal process at L2- 3. MRCP was obtained showing CBD dilation up to 18 mm, findings felt to most lik felipa reflect sequelae of obstructing choledocholithiasis, malignancy difficult to exclude along with cholelithiasis, gallbladder wall thickening and edema with mild pericholecystic fluid suggestive of acute cholecystitis. Attempted to transfer to [facility] for GI evaluation, GI recommended outpatient follow- up and endoscopic ultrasound. Went into A-Fib with RVR on 02/05, Cardiology was consulted, Verapamil adjusted. CXR showing concerns of CHF exacerbation, she has been started on Lasix 40 mg IV QD. 02/06 Patient was seen and examined. Reports no abdominal pain. CXR done yesterday showing pulmonary vascular congestion. Started on Lasix 40 mg IV QD yesterday for CHF exacerbation. Antibiotics include Zosyn 3.75g IV TID. CBC and CMP significant for WBC 11.18, RBC 3.68, Hct 34.5, Na 128, K 3.1, Cl 94, BUN 6, alb 2.7. Echo shows EF 45%. Stool Cx and BCx neg so far. Discussed with Dania HIGH SCHOOL FOREIGN LANGUAGE TUTOR with Surgery, recommending transfer to [facility] for GI evaluation and ERCP. 02/07 Patient was seen and examined. No complaints. Accepted by [facility] for transfer for GI evaluation and ERCP. BMP shows Na 127, K 2.8, Cl 91, bicarb 32, Ca 8. Mag 1.6. General: toxic, no distress, appears older than stated age Derm: warm, dry Head: atraumatic, normocephalic, symmetric Mouth: no lip lesion, mucus membranes moist Cardiovascular: S1 S2 irreg. No murmurs rubs or gallops. Lungs: Decreased BS BL, no accessory muscle use Ext: no gross muscle atrophy, no edema, no contractures Neuro: No focal neurologic deficits. Psych: Alert and oriented. Discharge Diagnosis: Acute hypoxic respiratory failure secondary to CHF exacerbation Atrial fibrillation with RVR Sepsis with concerns for cholecystitis and choledocolithiasis Diarrhea Hypokalemia Generalized weakness and Debility Stool occult + Hyponatremia This complex discharge took 35 minutes to complete. Patient Condition at Discharge: Stable Plan - Discharge Summary Discharge Rx Participant: No New Discharge Prescriptions: No Action Simvastatin [Zocor] 80 mg PO HS hydroCHLOROthiazide 50 mg PO DAILY Apixaban [Eliquis] 5 mg PO BID #60 tab Verapamil Sr [Isoptin Sr] 120 mg PO DAILY #30 tablet.er Potassium Chloride ER [K-Dur 10] 10 meq PO DAILY Levothyroxine Sodium [Synthroid] 125 mcg PO DAILY Discharge Medication List Simvastatin [Zocor] 80 mg PO HS 08/14/19 [History] hydroCHLOROthiazide 50 mg PO DAILY 08/14/19 [History] Apixaban [Eliquis] 5 mg PO BID #60 tab 08/16/19 [Rx] Verapamil Sr [Isoptin Sr] 120 mg PO DAILY #30 tablet.er 08/16/19 [Rx] Levothyroxine Sodium [Synthroid] 125 mcg PO DAILY 02/01/25 [History] Potassium Chloride ER [K-Dur 10] 10 meq PO DAILY 02/01/25 [History] Follow up Appointment(s)/Referral(s): Rj Carpio MD [Primary Care Provider] - 1-2 days [facility], [NON-STAFF] - Discharge Disposition: OTHER INSTITUTION NOT DEFINED
--- NOTE | 2025-02-07 14:01 | P.PN ---
Subjective HISTORY OF PRESENT ILLNESS: This is a 80-year-old female with a past medical history significant for atrial fibrillation, hypertension, hyperlipidemia, and hypothyroidism. Patient used to follow in the office with Dr. Carrasco but has not been seen since 2019. We have been asked to see the patient in consultation for atrial fibrillation. Patient examined at the bedside. Patient's is present. Patient presented to the hospital with a chief complaint of diarrhea. She states she has been having diarrhea for 3 weeks. She denied having any abdominal pain. She reports she has been taking Pepto-Bismol at home to help with the diarrhea. She reports having black stools as well. However she states she has been having black stools prior to taking Pepto-Bismol. She reports decreased appetite and states that she was not able to eat much this morning but did drink some juice. She feels mildly short of breath this morning. She denies any chest pain or pressure. Telemetry this morning reveals atrial fibrillation with a heart rate around 120. Patient denies any palpitations, dizziness, or lightheadedness. DIAGNOSTICS: - EKG reveals A-fib with RVR. - Laboratory data: WBC 10.25. Hemoglobin 11.1. Platelet count 345. Sodium 128. Potassium 3.9. BUN 6. Creatinine 0.47. Procalcitonin 0.14. TSH 4.210. Stool for occult blood is positive. - Current home cardiac medications include verapamil 120 mg daily, hydrochlorothiazide 50 mg daily, simvastatin 80 mg at night, Eliquis 5 mg twice a day - Most recent echocardiogram obtained in 2019 revealing hyperdynamic EF greater than 70%, mild aortic regurgitation, trace to mild mitral regurgitation, mild tricuspid regurgitation - Cardiac catheterization history: Unknown 02/06/2025 Patient examined this morning at bedside. Patient currently denies chest pain or pressure. She does report some shortness of breath. She is currently on 4 L nasal cannula. Per nursing, patient did receive a dose of IV Lasix yesterday. Per nursing, plans are underway for transfer to tertiary care center as there is no GI service available at this facility currently. Patient's Eliquis remains on hold. Echocardiogram completed revealing ejection fraction 45%, mild pulm hypertension, mild mitral regurgitation, mild aortic regurgitation, mild tricuspid regurgitation 02/07/2025 Patient examined this morning to bedside. Patient remains in atrial fibrillation with controlled ventricular rates in the 70s. Patient currently denies chest pain or pressure. She denies shortness of breath. Plans are underway for transfer to tertiary care center. PHYSICAL EXAM: VITAL SIGNS: Reviewed. GENERAL: Well-developed in no acute distress. HEENT: Head is normocephalic. Pupils are equal, round. Sclerae anicteric. Mucous membranes of the mouth are moist. Neck supple. No JVD or thyromegaly LUNGS: Respirations even and unlabored. Lungs essentially clear to auscultation bilaterally, mild wheezing. HEART: Irregular rate and rhythm. S1 and S2 heard. ABDOMEN: Soft. Nondistended. Nontender. EXTREMITIES: Normal range of motion. No clubbing or cyanosis. Peripheral pulses intact. Trace bilateral lower extremity edema NEUROLOGIC: Awake and alert. Oriented x 3. ASSESSMENT: Diarrhea x 3 weeks Melena Hyponatremia Atrial fibrillation with RVR, paroxysmal versus persistent Possible obstructing choledocholithiasis per MRCP, malignancy not excluded Cholelithiasis with gallbladder wall thickening suggestive of acute cholecystitis Hypertension Hyperlipidemia Hypothyroidism Acute heart failure with mildly reduced EF, 45% PLAN: Hold Eliquis per general surgery. Resume when cleared by consultants. May consider Watchman device if patient has continued episodes of bleeding with inability to tolerate anticoagulation. Continue verapamil 240 mg daily Plans are underway for transfer to tertiary care center. Further recommendations pending patient course Nurse practitioner note has been reviewed by physician. Signing provider agrees with the documented findings, assessment, and plan of care documented by SENIOR BUYER as a scribe. Objective - Vital Signs Vital signs: Vital Signs Temp 97.8 F 02/07/25 08:00 Pulse 64 02/07/25 12:00 Resp 16 02/07/25 12:00 BP 115/71 02/07/25 12:00 Pulse Ox 97 02/07/25 12:00 FiO2 Intake & Output 02/06/25 02/07/25 02/07/25 18:59 06:59 18:59 Intake Total 558 Output Total 1800 600 Balance -1242 -600 Intake: Intake, IV Titration 200 Amount Piperacillin-Tazobactam 3 200 .375 gm In Sodium Chloride 0.9% 100 ml @ 25 mls/hr IVPB Q8HR NATE Rx# :[id number] Oral 358 Output: Urine 1800 600 Other: Voiding Method Indwelling Catheter Indwelling Catheter Indwelling Catheter # Bowel Movements 2 - Labs CBC & Chem 7: 02/06/25 05:23 02/07/25 05:30 Labs: Abnormal Lab Results - Last 24 Hours (Table) 02/07/25 Range/Units 05:30 Sodium 127 L (137-145) mmol/L Potassium 2.8 L (3.5-5.1) mmol/L Chloride 91 L (98-107) mmol/L Carbon Dioxide 32 H (22-30) mmol/L Calcium 8.0 L (8.4-10.2) mg/dL Microbiology - Last 24 Hours (Table) 02/05/25 06:22 Blood Culture - Preliminary Blood 02/03/25 11:50 Stool Culture - Final Stool
== END 2025-02-07 13:23 | disposition short-term general hospital (02) | DRG 444 ==
LOC: EC 16:02 → 5NMEDONC 17:50 → 4SSUR 19:51 → 3SCARD 02-02 00:09
PROVIDERS: ADMIT Student in an Organized Health Care Education/Training Program; ATTEND Student in an Organized Health Care Education/Training Program
PROC: 3E033RZ Introduction of Antiarrhythmic into Peripheral Vein, Percutaneous Approach (ICD-10-PCS; principal; 2025-02-02)
DX: K80.63 Calculus of gallbladder and bile duct with acute cholecystitis with obstruction (principal); A41.9 Sepsis, unspecified organism; J96.01 Acute respiratory failure with hypoxia; I50.23 Acute on chronic systolic (congestive) heart failure; I27.20 Pulmonary hypertension, unspecified; F05 Delirium due to known physiological condition; I11.0 Hypertensive heart disease with heart failure; E03.9 Hypothyroidism, unspecified; D50.9 Iron deficiency anemia, unspecified; E87.1 Hypo-osmolality and hyponatremia; I48.0 Paroxysmal atrial fibrillation; K31.9 Disease of stomach and duodenum, unspecified; R19.7 Diarrhea, unspecified; R33.9 Retention of urine, unspecified; E83.42 Hypomagnesemia; E87.6 Hypokalemia; N32.81 Overactive bladder; M47.816 Spondylosis without myelopathy or radiculopathy, lumbar region; T47.6X5A Adverse effect of antidiarrheal drugs, initial encounter; E78.5 Hyperlipidemia, unspecified; M16.0 Bilateral primary osteoarthritis of hip; M51.360 Other intervertebral disc degeneration, lumbar region with discogenic back pain only; Z96.612 Presence of left artificial shoulder joint; Z79.899 Other long term (current) drug therapy; Z79.890 Hormone replacement therapy; Z79.82 Long term (current) use of aspirin; Z79.01 Long term (current) use of anticoagulants
CPT/HCPCS: 36415; 51701; 51798; 71045; 72133; 74177; 74181; 80048; 80053; 81001; 82272; 82728; 83540; 83550; 83605; 83690; 83735; 83930; 83935; 84145; 84295; 84300; 84443; 85025; 85027; 86850; 86900; 86901; 87040; 87045; 87046; 87324; 93005; 93306; 94760; 96361; 96365; 96366; 96367; 96368; 96375; 96376; 99285